=== PATIENT | female | born 1940 | race Caucasian/White ===

== ENCOUNTER → 2023-05-05 10:38 | Outpatient (REF) | payer MEDICARE, OTHER, SELFPAY ==
[2023-05-05 15:30] LABS: % Basophils 1.3 % (0-2); % Immature Granulocytes 0.3 % (0-0.5); % Lymphocytes 24.7 % (20.5-51.1); % Monocytes 12.4 % (1.7-9.3); % Neutrophils 56.3 % (42.2-75.2); Absolute Basophils 0.1 10^3/uL (0-0.2); Absolute Eosinophils 0.3 10^3/uL (0-0.7); Absolute Lymphocytes 1.7 10^3/uL (1.2-3.4); Absolute Monocytes 0.8 10^3/uL (0.1-0.6); Absolute Neutrophils 3.8 10^3/uL (1.4-6.5); Hematocrit 41.9 % (37.0-47.0); Hemoglobin 13.4 g/dL (12.0-16.0); Mean Corpuscular Volume 93.7 fL (81.0-99.0); Mean Platelet Volume 10.4 fL (7.4-10.4); Nucleated Red Blood Cells % 0 %; Platelet Count 335 10^3/uL (130-400); Red Blood Cell Count 4.47 10^6/uL (4.20-5.40); Red Cell Dist. Width 12.3 % (11.5-14.5); White Blood Cell Count 6.8 10^3/uL (4.8-10.8)
[2023-05-05 15:46] LABS: Erythrocyte Sed Rate 19 mm/hour (0-20)
[2023-05-05 15:47] LABS: ALT (SGPT) 14 U/L (0-35); AST (SGOT) 21 U/L (14-36); Alkaline Phosphatase 44 U/L (38-126); Blood Urea Nitrogen 25 mg/dl (7-17); Calcium 9.8 mg/dl (8.4-10.2); Carbon Dioxide 29 mmol/L (22-30); Chloride 100 mmol/L (98-107); Glucose 95 mg/dl (70-99); Potassium 4.3 mmol/L (3.5-5.1); Sodium 138 mmol/L (135-145); Total Bilirubin 0.8 mg/dl (0.2-1.3); Total Protein 6.6 g/dl (6.3-8.2); eGFR 55.55
[2023-05-05 16:08] LABS: Vitamin D, 25-OH*** 43.9 ng/mL (30-80)
[2023-05-08 10:40] LABS: Intact PTH 41.3 pg/ml (13.6-85.8)
== END ==
LOC: HWLAB 10:38
PROVIDERS: ATTENDING PHYSICIAN Internal Medicine; FAMILY PHYSICIAN Internal Medicine
DX: E21.5 Disorder of parathyroid gland, unspecified (principal); E55.9 Vitamin D deficiency, unspecified; G89.29 Other chronic pain; M25.511 Pain in right shoulder; M25.512 Pain in left shoulder; M35.3 Polymyalgia rheumatica; M81.0 Age-related osteoporosis without current pathological fracture; Z51.81 Encounter for therapeutic drug level monitoring
CPT/HCPCS: 36415; 80053; 82306; 83970; 85025; 85652; 86140

== ENCOUNTER → 2023-07-14 12:19 | Outpatient (REF) | payer MEDICARE, OTHER, SELFPAY ==
[2023-07-14 16:24] LABS: % Basophils 0.9 % (0-2); % Immature Granulocytes 0.6 % (0-0.5); % Lymphocytes 12.3 % (20.5-51.1); % Monocytes 15.6 % (1.7-9.3); % Neutrophils 68.6 % (42.2-75.2); Absolute Basophils 0.1 10^3/uL (0-0.2); Absolute Eosinophils 0.2 10^3/uL (0-0.7); Absolute Immature Granulocytes 0.1 10^3/uL (0-0.05); Absolute Lymphocytes 1.1 10^3/uL (1.2-3.4); Absolute Monocytes 1.4 10^3/uL (0.1-0.6); Absolute Neutrophils 6.1 10^3/uL (1.4-6.5); Hematocrit 39.8 % (37.0-47.0); Hemoglobin 12.9 g/dL (12.0-16.0); Mean Corp Hgb Conc. 32.4 g/dL (33.0-37.0); Mean Corpuscular Volume 92.6 fL (81.0-99.0); Mean Platelet Volume 10.2 fL (7.4-10.4); Nucleated Red Blood Cells % 0 %; Platelet Count 513 10^3/uL (130-400); Red Cell Dist. Width 12.8 % (11.5-14.5); White Blood Cell Count 8.8 10^3/uL (4.8-10.8)
[2023-07-14 16:47] LABS: ALT (SGPT) 18 U/L (0-35); AST (SGOT) 23 U/L (14-36); Albumin 4.2 g/dl (3.5-5.0); Alkaline Phosphatase 53 U/L (38-126); Blood Urea Nitrogen 20 mg/dl (7-17); Calcium 9.9 mg/dl (8.4-10.2); Carbon Dioxide 28 mmol/L (22-30); Chloride 97 mmol/L (98-107); Glucose 96 mg/dl (70-99); Potassium 4.5 mmol/L (3.5-5.1); Sodium 135 mmol/L (135-145); Total Bilirubin 0.5 mg/dl (0.2-1.3); Total Protein 7.4 g/dl (6.3-8.2); eGFR > 60.00
== END ==
LOC: HWLAB 12:19
PROVIDERS: ATTENDING PHYSICIAN Internal Medicine
DX: R53.83 Other fatigue (principal); R06.02 Shortness of breath
CPT/HCPCS: 36415; 71046; 80053; 85025

== ENCOUNTER 2023-08-04 13:09 | Inpatient (IN) | payer MEDICARE, OTHER, SELFPAY ==
[2023-08-04] VITALS (9 sets, daily range): BP systolic 94–149; BP diastolic 51–93; BMI 19.0; BMI 18.3
[2023-08-04 10:49] LABS: % Basophils 0.8 % (0-2); % Eosinophils 2.7 % (0-6); % Immature Granulocytes 0.5 % (0-0.5); % Lymphocytes 8.9 % (20.5-51.1); % Monocytes 14.6 % (1.7-9.3); % Neutrophils 72.5 % (42.2-75.2); Absolute Basophils 0.1 10^3/uL (0-0.2); Absolute Eosinophils 0.2 10^3/uL (0-0.7); Absolute Lymphocytes 0.7 10^3/uL (1.2-3.4); Absolute Monocytes 1.1 10^3/uL (0.1-0.6); Absolute Neutrophils 5.6 10^3/uL (1.4-6.5); Hematocrit 38.9 % (37.0-47.0); Mean Corp Hgb Conc. 33.4 g/dL (33.0-37.0); Mean Corpuscular Hgb 30.1 pg (27.0-31.0); Mean Platelet Volume 9.5 fL (7.4-10.4); Nucleated Red Blood Cells % 0 %; Platelet Count 257 10^3/uL (130-400); Red Blood Cell Count 4.32 10^6/uL (4.20-5.40); Red Cell Dist. Width 12.8 % (11.5-14.5); White Blood Cell Count 7.7 10^3/uL (4.8-10.8)
--- NOTE | 2023-08-04 11:08 | ED.GENMED ---
History of Present Illness
General
Chief Complaint: Breathing Problem
Source: patient and family
Exam Limitations: none
Time Seen by Provider: 08/04/23 10:16
Travel History
Have you had any contact with someone who has COVID-19?: No
Do you have any symptoms of coronavirus? Fever > 100 degrees, chills, cough, shortness of breath, sore throat, loss of taste or smell, muscle aches, or headache?: No
History of Present Illness
History of Present Illness:
82-year-old female sent by her primary physician for further evaluation and possible admission. Presents with increased shortness of breath. This been going on for weeks. Patient is on a chronic inhaler. Was on a course of steroids about 3 weeks
ago. Had some improvement at that time. No infectious symptoms no cough. No fever. No chest pain. Increased symptoms with exertion. Was hypoxic in the patient's primary care office.
Past History
Past History
ED Past Medical History: COPD
ED Past Surgical History: Gynecological
Review of Systems
Review of Systems
All Other Systems: Not applicable
Constitutional: Denies fever
Cardiac: Reports no symptoms
ABD/GI: Reports no symptoms
Phy Exam
Physical Exam
Physical Exam:
GENERAL: Alert and oriented in no apparent distress
EYE: Orbits normal.
NECK: Supple
ENT: Pharynx without erythema
CARDIAC: Regular rate and rhythm without any obvious murmurs.
LUNGS: Very minimal pursed lip type breathing. No red distress. Room air pulse ox 95%. Decreased breath sounds diffusely with some dry crackles anteriorly and posterior bases. No wheezing or rhonchi
ABDOMEN: Soft, without focal tenderness or distention
NEUROLOGICAL: Alert and oriented , grossly non-focal
SKIN: Warm and dry, no rash or lesion, no discoloration, skin intact.
MUSCULOSKELETAL: No edema,no deformity.Good color
PSYCH: Normal and appropriate interaction.
Scores
Heart Failure Risk
Heart Failure Risk Score: Not Applicable
Course
Orders/Labs/Results
Orders:
Orders
08/04/23 10:15
Electrocardiogram (*1) Urgent
Reason for Study: Shortness of Breath
EKG- Treatment ONCE
08/04/23 10:37
Complete Blood Count/With Diff Urgent
Comprehensive Metabolic Panel Urgent
08/04/23 10:52
IV Insert/Care/Rem.- Treatment PRN
Dexamethasone Sod Phosphate [Decadron] 8 mg IV NOW STA
Ipratropium/Albuterol Sulfate [Duoneb] 3 ml INH R NOW STA
08/04/23 10:53
Electrocardiogram (*1) Stat
Reason for Study: Other
Other Reason for Exam: pneumonia
EKG- Treatment ONCE
CR Chest - 2 Views Urgent
Comment:
Reason For Exam: sob
08/04/23 11:07
D-Dimer Urgent
08/04/23 12:41
Ipratropium/Albuterol Sulfate [Duoneb] 3 ml INH R NOW ONE
Abnormal Lab Results
08/04/23 08/04/23
10:37 11:07
Absolute Lymphs (auto) 0.7 L 10^3/uL
(1.2-3.4)
Absolute Monos (auto) 1.1 H 10^3/uL
(0.1-0.6)
Lymphocytes % 8.9 L %
(20.5-51.1)
Monocytes % 14.6 H %
(1.7-9.3)
D-Dimer 0.78 H ug/mlFEU
(0.00-0.50)
Glucose 101 H mg/dl
(70-99)
08/04/23 10:37
08/04/23 10:37
Vital Signs
Initial and Last Documented VS:
Initial Vital Signs
Temp Pulse Resp BP Pulse Ox
97.8 F 95 16 148/74 97
08/04/23 10:06 08/04/23 10:06 08/04/23 10:06 08/04/23 10:06 08/04/23 10:06
Last Documented Vital Signs
Temp Pulse Resp BP Pulse Ox
97.8 F 100 25 149/91 97
08/04/23 10:06 08/04/23 10:30 08/04/23 10:30 08/04/23 10:25 08/04/23 10:22
MDM/Problems Addressed
Differential Diagnosis Includes:
Likely COPD exacerbation however no precipitating event. Evaluation for pulmonary emboli pneumonia CHF. However likely a COPD exacerbation.
*Radiology
Radiology exam reviewed: preliminary read by ED provider (COPD) and radiology read reviewed (COPD)
*Pulse Oximetry
Patient hypoxic: no
*EKG
Interpreted by ED Provider?: Yes
Interpretation: abnormal
Comparison EKG: no comparison EKG present
Heart Rate: 86
Rhythm: sinus and PAC's
[place]: normal axis
Interval: normal interval
QRS Pattern: normal QRS
Ischemia: no ischemia
*Marine Steam [employer]itter Interpretation
Rate: normal
Interpretation: normal
Heart Rate: 84
Rhythm: sinus
*Critical Care Note
Total Time (30-74mins, 75-104mins- exclusive of procedures): Not Applicable
Update Note
Update Note:
Patient's D-dimer age-adjusted normal with a low clinical suspicion. Patient not hypoxic at rest although minimal pursed lip breathing. However with ambulation patient became very hypoxic. Warrants inpatient management
ED Attending Note
-
Portions of this chart may have been created with voice recognition software.� Occasional wrong word or��sound alike� substitutions may have occurred due to the inherent limitations of voice recognition software.
Discharge Plan
Departure
Patient Disposition: Admit
Date of Disposition: 08/04/23
Time of Disposition: 12:42
Presentation/result/management discussed w/ accepting MD/DO: Hospitalist
Discharge Problem:
COPD exacerbation, Severe hypoxia with exertion
Referrals:
Werner Mena DO [Family Provider] -
Interventions
Interventions:
*Risk Screen - Suicide Last Done: 08/04/23 10:21
*General Assessment Last Done: 08/04/23 10:21
*Neglect/Abuse Screening Last Done: 08/04/23 10:21
ED- Fall Risk Assessment Last Done: 08/04/23 10:22
*ED COVID-19 Vaccine History Last Done: 08/04/23 10:07
ED- Cardiac Assessment Last Done: 08/04/23 10:22
ED- Pulmonary Assessment Last Done: 08/04/23 10:22
Discharge Date and Time
Print Language: MONGOLIAN
[2023-08-04 11:15] LABS: ALT (SGPT) 16 U/L (0-35); AST (SGOT) 22 U/L (14-36); Albumin 3.9 g/dl (3.5-5.0); Alkaline Phosphatase 52 U/L (38-126); Blood Urea Nitrogen 16 mg/dl (7-17); Calcium 9.4 mg/dl (8.4-10.2); Carbon Dioxide 29 mmol/L (22-30); Chloride 101 mmol/L (98-107); Estimated Creatinine Clearance 44 ml/min; Glucose 101 mg/dl (70-99); Potassium 3.8 mmol/L (3.5-5.1); Sodium 136 mmol/L (135-145); Total Bilirubin 0.7 mg/dl (0.2-1.3); Total Protein 6.8 g/dl (6.3-8.2); eGFR > 60.00
[2023-08-04] MEDS: DECADRON 8 MG IV (11:23)
[2023-08-04] MEDS: DUONEB 3 ML INH ×4 (11:26→20:25)
[2023-08-04 12:09] LABS: D-Dimer 0.78 ug/mlFEU (0.00-0.50)
--- NOTE | 2023-08-04 12:52 | HPS.HSE ---
Family Physician
-
Family Physician: Werner Mena
Chief Complaint
-
Shortness of breath for 1 week duration
History of Present Illness
82 years old female came in from home. Patient went to see her primary care doctor today. She reported shortness of breath mostly exertional. No cough or fever. She was noted to have hypoxia in the patient's primary care office. Her primary
doctor recommended evaluation in the emergency room. In the ER, she was noted to have shortness of breath. She was given intravenous steroid and breathing treatment. Her oxygen was 90% on room air while in bed. Patient denied chest pain. No
leukocytosis. She had a course of steroid about 3 weeks ago. She reported compliance to her inhalation therapy. She is not on oxygen at home
Medical History
Past Medical History
Past Medical History: Reports COPD and Hypercholesterolemia
Past Surgical History: Reports Other (No recent major surgery)
Social History
Tobacco: Former Smoker
Alcohol: Occasional
Drug: None
Personal:
Living: Alone
Employment: Retired
Family History
Family History: Not pertinent
Allergies / Home Medications
Allergies reflects when Allergies were last updated in [facility].
Home Medications with original date entered in [facility]
Allergy/Medication List:
Allergies
Allergy/AdvReac Type Severity Reaction Status Date / Time
No Known Allergies Allergy Unverified 08/04/23 10:07
Home Medications
albuterol sulfate 90 mcg/actuation breath activated powder inhaler (ProAir RespiClick) 2 inh inhalation Q6H PRN shortness of breath 08/04/23
budesonide 160 mcg-glycopyr 9 mcg-formot 4.8 mcg/actuation HFA inhaler (Breztri Aerosphere) 2 inh inhalation BID Lung/Breathing Issues 08/04/23
calcium carbonate 500 mg PO DAILY 08/04/23
cholecalciferol (vitamin D3) 25 mcg (1,000 unit) capsule (Vitamin D3) 25 mcg PO DAILY@1200 08/04/23
Review of Systems
-
History Source: Patient
A 12 point ROS was completed and negative except as noted: Yes
Constitutional: Denies Fever or Chills
EENT: Denies Sore Throat
Respiratory: Reports Trouble Breathing; Denies Cough
Cardiac: Denies Chest Pain
Abdomen/GI: Denies Abdominal Pain or Nausea
: Denies Dysuria
Musculoskeletal: Denies Joint Pain
Skin: Denies Rash
Neurological: Denies Headache
Endocrine: Denies Temp Intolerance
Hematologic/Lymphatic: Denies Bruising
Psych: Denies Panic Disorder
Physical Exam
Vital Signs
Vital Signs
Temp Pulse Resp BP Pulse Ox
97.8 F 100 25 149/91 97
08/04/23 10:06 08/04/23 10:30 08/04/23 10:30 08/04/23 10:25 08/04/23 10:22
Physical Exam
General: Appears in Distress (She seems to be in mild shortness of breath while talking)
HEENT: Moist mucous membranes and Atraumatic
Respiratory: Wheezes and Decreased Breath Sounds
Cardiac: S1/S2, Regular Rhythm and Tachycardia
GI: Soft, Non Tender and Non Distended
Rectal: No Maroon Stools
Genito-urinary: No costovertebral tender
Musculoskeletal: No Cyanosis and No Edema
Skin: Warm; No Jaundice
Neuro: AO x 3 and Nonfocal/grossly intact; No Slurred Speech, Facial Droop or Tremors
Psych: Calm and Intact Judgment/Insight
Laboratory Results
-
08/04/23 10:37
08/04/23 10:37
Laboratory Results
Total Bilirubin 0.7 mg/dl (0.2-1.3) 08/04/23 10:37
AST 22 U/L (14-36) 08/04/23 10:37
ALT 16 U/L (0-35) 08/04/23 10:37
Alkaline Phosphatase 52 U/L (38-126) 08/04/23 10:37
Impression/Plan
-
82 years old female who presented with exertional shortness of breath
#/Acute COPD exacerbation
Acute hypoxic respiratory insufficiency with oxygen saturation 90% on rest with noticeable mild respiratory distress and using accessory muscle
Admit the patient to the hospital she is having respiratory distress, mostly exertional over the last
Several days. History of use of steroid at home
Chest radiography showed Some bibasilar scarring
Start the patient on IV steroid
Start the patient on nebulizer treatment
No evidence of acute infection with absence of leukocytosis, fever, productive cough
Eventual home O2 evaluate
Mucolytic therapy
Primary alum plant operator Dr. Ballesteros
Appreciate pulmonary input
# History of hyperlipidemia. No changes intended
# Sinus tachycardia. Expected with respiratory distress. Monitor for now. Patient denies chest pain.
# DVT prophylaxis
Total time spent to see the patient, examine the patient, review data and lab results, discuss treatment plan with patient, nursing staff, Pulmonary doctor, ER doctor around 75 minutes
--- NOTE | 2023-08-04 15:53 | PTCARENOTE ---
Received patient from ER awake and alert. No c/o pain or discomfort. Oriented to room , able to make her needs known. O2 maintained at 3 LPM via nasal cannula. Call thompson in reach, Son- in - law visiting at present.
--- NOTE | 2023-08-04 15:56 | CM ---
Patient seen bedside with son in law Shah.
Admitted with hypoxia
IA completed.
Patient lives alone in a 2 story home with 2 steps to enter.
Independent without assistive devices prior to admission.
Patient does have a WC and RW in the home, was her husbands.
Patient drives.
Patient was not on oxygen in the past.
Patient has not had VN or been to skilled rehab in the past.
PCP: Dr Mena
Pharmacy: [facility]
Plan:home with possible needs.
--- NOTE | 2023-08-04 17:03 | CON.PUL ---
Consultation
Consultation Request
Date/Time Consultation Requested: 08/03
Date/Time Consultation Performed: 08/03
Reason for Consultation: COPD exacerbation
Medical History
-
History of Present Illness:
History obtained from the patient, reviewing outpatient and inpatient records, obtaining history from daughter. Patient with history of COPD with asthma overlap, isolated gas exchange defect, smoking history in the past but has been on Breztri as
outpatient for the past year. Symptoms seem to date back to June when she had upper respiratory infection. She required 12 days of steroids by her primary in July with improvement about upon coming off steroids, increased shortness of breath,
chest congestion, cough started about 10 days ago. She was supposed to see Sobeida but unable to. She saw her primary today and was sent to [facility] for further management. Upon arrival, patient was afebrile, pulse 95, breathing at 16,
blood pressure 148/74, 97%. Patient had poor air movement during exam. Patient was admitted for hypoxia and COPD exacerbation. We are asked to help from pulmonary standpoint. Daughter was present to corroborate
.
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 History of tonsillectomy, D&C in the past
Past Medical History
Past Medical History: None (See above)
Past Surgical History: None (See above)
Social History
Tobacco: Former Smoker ([id number], quit 2011. )
Alcohol: None
Drug: None
Personal: Single
Living: Alone
Employment: Retired
Family History
Family History: Other (Both mother and father . Mother from a brain bleed at age 79. 6 siblings, 4 children. Family history for lung disease negative)
Allergies / Home Medications
Allergies
Allergy/AdvReac Type Severity Reaction Status Date / Time
No Known Allergies Allergy Unverified 08/04/23 10:07
Home Medications
�Medication �Instructions �Recorded �Confirmed �Last Taken �Type
albuterol sulfate 90 mcg/actuation 2 inh inhalation Q6H PRN shortness 08/04/23 08/04/23 1 Week Ago History
breath activated powder inhaler of breath ~07/28/23
(ProAir RespiClick)
budesonide 160 mcg-glycopyr 9 2 inh inhalation BID 08/04/23 08/04/23 08/04/23 History
mcg-formot 4.8 mcg/actuation HFA Lung/Breathing Issues
inhaler ([employer]ztri Escapiophere)
calcium carbonate 500 mg PO DAILY 08/04/23 08/04/23 08/03/23 History
cholecalciferol (vitamin D3) 25 25 mcg PO DAILY@1200 08/04/23 08/04/23 08/03/23 History
mcg (1,000 unit) capsule (Vitamin
D3)
Review of Systems
-
All other systems: Negative unless noted
Vitals / Labs / Diagnostic Testing
Vital Signs
Temp Pulse Resp BP Pulse Ox
97.7 F 100 16 122/67 98
08/04/23 14:44 08/04/23 16:19 08/04/23 16:19 08/04/23 14:44 08/04/23 16:19
Lab Data
08/04/23 10:37
08/04/23 10:37
Diagnostic Testing:
Physical Exam
-
HEENT: Normocephalic, Anicteric and Other (Cachectic)
Cardiovascular: S1/S2, Regular Rhythm, Murmur (2/6 systolic murmur right sternal border), Peripheral Edema (n) and Calf Tenderness (n)
Respiratory: Wheeze (Extremely poor air movement, mild wheeze), Rales (n), Rhonchi (n), Accessory Resp Muscle Use (Mild with conversation) and Other (Decreased breath sounds)
GI: Soft, Non Distended and Non Tender
Neurology: Awake, Alert and No Motor Deficits
Skin: Other (Mild pallor, no clubbing or cyanosis)
General: Comfortable (Sitting at edge of bed)
Assessment
-
82-year-old female with history of COPD/asthma overlap, baseline FEV1 60% but has been as low as 25% in the past, distant tobacco history, presents with on and off symptoms since June following upper respiratory infection. She was treated with
12-day course of steroid by her primary in July with good response. She is now admitted for COPD exacerbation 08/04/2023
Acute COPD exacerbation
Possible asthma overlap
Poor air movement on exam
Acute respiratory insufficiency, hypoxic
88% on room air
Recent upper respiratory infection June 2023
Conditions present prior to admission
Severe obstructive lung disease, FEV1 ranges between 25 and 60%
No evidence of hyperinflation, DLCO severely decreased at 20%
Polymyalgia rheumatica
History of skin cancer, squamous cell
[id number] history of smoking quit 2011
Pulmonary cachexia
Plan/recommendations
At this time, patient appears to be comfortable but there is mild use of accessory muscles with simple conversation
Extremely poor air movement on exam
Chest x-ray with flattened diaphragm, cannot rule out bibasilar process
Reviewed outpatient records, severe obstruction with severe gas exchange defect noted
Patient has never required oxygen therapy with a walk test
Moving forward
Continue with dexamethasone
Patient will require bjlftz-thr-dwwvo DuoNebs 4 times a day and as needed
GERD prophylaxis
DVT prophylaxis, remains on subcutaneous heparin
Mild bibasilar infiltrate noted, cannot rule out interstitial process but for now we will follow clinically
Hold off on antibiotics
Symptoms seem to wax and wane since June after upper respiratory infection
EKG without acute findings
Patient also with likely evidence of pulmonary cachexia
May benefit from formal pulmonary rehabilitation, muscle strengthening, and nutritional evaluation
Reviewed above at length with patient and daughter at bedside
All questions answered
[2023-08-04] MEDS: MUCINEX 600 MG PO (21:26)
[2023-08-04] MEDS: DECADRON 4 MG IV (21:27)
[2023-08-05] MEDS: DUONEB 3 ML INH ×4 (07:18→20:05)
[2023-08-05 07:30] VITALS: BP 119/67; BP 92/67; PULSE 108; PULSE 80
[2023-08-05] MEDS: DECADRON 4 MG IV ×2 (09:04→21:08)
[2023-08-05] MEDS: MUCINEX 600 MG PO ×2 (09:04→21:08)
[2023-08-05] MEDS: PROTONIX 40 MG PO (09:04)
--- NOTE | 2023-08-05 09:26 | W.PN.PUL3 ---
Today's Communication / Plan
-
Transition to oral prednisone 08/05, slow taper
Continue neb therapy [id number]
Remains on GERD therapy
Ambulate, PT/OT
Assessment
-
82-year-old female with history of COPD/asthma overlap, baseline FEV1 60% but has been as low as 25% in the past, distant tobacco history, presents with on and off symptoms since June following upper respiratory infection. She was treated with
12-day course of steroid by her primary in July with good response. She is now admitted for COPD exacerbation 08/04/2023
Acute COPD exacerbation
Possible asthma overlap
Poor air movement on exam
Acute respiratory insufficiency, hypoxic
88% on room air
Recent upper respiratory infection June 2023
Conditions present prior to admission
Severe obstructive lung disease, FEV1 ranges between 25 and 60%
No evidence of hyperinflation, DLCO severely decreased at 20%
Polymyalgia rheumatica
History of skin cancer, squamous cell
[id number] history of smoking quit 2011
Pulmonary cachexia
Plan/recommendations
At this time, patient appears to be comfortable, less use of accessory muscles with conversation this morning
Extremely poor air movement on exam, slightly improved
Chest x-ray with flattened diaphragm, cannot rule out bibasilar process
Reviewed outpatient records, severe obstruction with severe gas exchange defect noted
Patient has never required oxygen therapy with a walk test
Moving forward
Continue with dexamethasone, will plan to change to oral prednisone in a.m.
Would pursue slow taper given recurrent need for steroids, last treated for 12 days per primary middle of July
Patient will require jqkrsv-vrh-pewua DuoNebs 4 times a day and as needed
GERD prophylaxis
DVT prophylaxis, remains on subcutaneous heparin
Mild bibasilar infiltrate noted, cannot rule out interstitial process but for now we will follow clinically
Hold off on antibiotics
Symptoms seem to wax and wane since June after upper respiratory infection
EKG without acute findings
Patient also with likely evidence of pulmonary cachexia
May benefit from formal pulmonary rehabilitation, muscle strengthening, and nutritional evaluation
Reviewed above at length with patient
Will require short-term follow-up in the office
Subjective Data
-
Date of Service:
Date of Service: August 05, 2023
Subjective:
Patient feels breathing has improved. She is presently on room air, examined earlier this morning. Denies chest pain, cough, hemoptysis, abdominal pain, nausea
Objective Data
Data Reviewed
Vital Signs / I&O / Oxygen:
Vital Signs
Temp Pulse Resp BP Pulse Ox
97.7 F 72 16 94/51 99
08/04/23 23:38 08/05/23 07:21 08/05/23 07:21 08/04/23 23:38 08/05/23 07:21
Intake and Output
08/04/23 08/05/23 08/06/23
06:59 06:59 06:59
Intake Total 120 / 120
Balance 120 / 120
SaO2 99
Nasal Cannula flow liters per 2
minute
Physical Exam
General: Comfortable and Other ( cachectic)
HEENT: Normocephalic and Anicteric
Cardiovascular: S1-S2, Regular Rhythm, Murmur (n) and Rub (n)
Respiratory: Wheeze (n), Crackles (n), Rhonchi (n), Non-Labored Respirations, Stridor (n) and Other (Decreased breath sounds, poor air movement)
GI: Soft, Non Distended and Non Tender
Neurology: Awake, Alert and No Motor Deficits
Skin: Cyanosis (n), Jaundice (n) and Rash (n)
Labs/Micro/Reports
Lab Data
08/04/23 10:37
08/04/23 10:37
--- NOTE | 2023-08-05 10:40 | W.PN.HOSP.TC ---
Today's Communication/Plan
-
.
Assessment / Plan
Assessment / Plan
Physical Exam
General: Appears in Distress (She seems to be in mild shortness of breath while talking)
HEENT: Moist mucous membranes and Atraumatic
Respiratory: less Wheezes and more breath Sounds
Cardiac: S1/S2, Regular Rhythm and Tachycardia
GI: Soft, Non Tender and Non Distended
Rectal: No Maroon Stools
Genito-urinary: No costovertebral tender
Musculoskeletal: No Cyanosis and No Edema
Skin: Warm; No Jaundice
Neuro: AO x 3 and Nonfocal/grossly intact; No Slurred Speech, Facial Droop or Tremors
Psych: Calm and Intact Judgment/Insight
82 years old female who presented with exertional shortness of breath
#/Acute COPD exacerbation
Acute hypoxic respiratory insufficiency with oxygen saturation 90% on rest with noticeable mild respiratory distress and using accessory muscle
she is feeling better today, no cough
Chest radiography showed Some bibasilar scarring
c/w IV steroid, plan to switch to taper oral prednisone.
c/w on nebulizer treatment
No evidence of acute infection with absence of leukocytosis, fever, productive cough
Eventual home O2 evaluate
Mucolytic therapy
Primary mechanic senior Dr. Ballesteros
Appreciate pulmonary input
# hypotension
asymptomatic
Monitor for now
# History of hyperlipidemia. No changes intended
# Sinus tachycardia. resolved.
# DVT prophylaxis
Total time spent to see the patient, examine the patient, review data and lab results, discuss treatment plan with patient, nursing staff around 55 minutes
Anticipated Discharge: Within 24 hours
Subjective/Interval History
-
Date of Service: August 05, 2023
No chest pain
No sob
No fevers
She did not sleep well because of roommate's condition.
Objective Data
-
Vital Signs:
Vital Signs
Temp Pulse Resp BP Pulse Ox
97.4 F 80 22 92/67 91
08/05/23 07:30 08/05/23 07:30 08/05/23 07:30 08/05/23 07:30 08/05/23 08:45
I&O
08/04/23 08/05/23 08/06/23
06:59 06:59 06:59
Intake Total 120 / 120
Balance 120 / 120
--- NOTE | 2023-08-05 14:54 | PN.CDI ---
CDI
- -
CDI:
Physician Documentation Request
Admit Date: 08/04/23 13:09
Dear Doctor Krish,
Patient admitted for acute exacerbation of COPD.
Height: 5' 3'
Weight:103 lbs
BMI:18.3
If possible, please provide an associated diagnosis related to the abnormal BMI, such as:
Underweight
Cachectic
BMI is not significant
Other
BMI < or = to 19
Underweight
Weight Loss
Cachectic
Anorexia
Use of terms such as suspected, likely, concern for, or probable (associated with a specific diagnosis that is being evaluated, monitored, or treated as if it exists) are acceptable and can be coded in the inpatient setting, when documented at the
time of discharge.
Thank you,
Teri Lindsay RN, BSN
CDI Specialist
Available via [facility] text
Please use your independent medical judgment in providing your response.
--- NOTE | 2023-08-05 14:57 | CM ---
Patient seen bedside.
Per patient possible d/c tomorrow.
Currently on room air.
Patient does not have a nebulizer at home.
Plan: home no needs anticipated. If patient needs nebulizer treatments at home, will need a script.
[2023-08-05 15:00] VITALS: BP 130/62
[2023-08-05 16:45] VITALS: BP 136/75; PULSE 104; O2SAT 94
[2023-08-05 23:50] VITALS: BP 97/56
[2023-08-06] MEDS: DUONEB 3 ML INH ×2 (07:25→11:17)
[2023-08-06 07:30] VITALS: BP 152/77
[2023-08-06] MEDS: MUCINEX 600 MG PO (08:06)
[2023-08-06] MEDS: PROTONIX 40 MG PO (08:06)
[2023-08-06] MEDS: DELTASONE 40 MG PO (08:06)
[2023-08-06 09:35] VITALS: BP 123/71; PULSE 81; O2SAT 96
--- NOTE | 2023-08-06 10:21 | W.PN.HOSP.TC ---
Today's Communication/Plan
-
dc
Assessment / Plan
Assessment / Plan
Physical Exam
General: Appears in Distress (She seems to be in mild shortness of breath while talking)
HEENT: Moist mucous membranes and Atraumatic
Respiratory: No Wheezes and more breath Sounds
Cardiac: S1/S2, Regular Rhythm and Tachycardia
GI: Soft, Non Tender and Non Distended
Rectal: No Maroon Stools
Genito-urinary: No costovertebral tender
Musculoskeletal: No Cyanosis and No Edema
Skin: Warm; No Jaundice
Neuro: AO x 3 and Nonfocal/grossly intact; No Slurred Speech, Facial Droop or Tremors
Psych: Calm and Intact Judgment/Insight
82 years old female who presented with exertional shortness of breath
#/Acute COPD exacerbation
Acute hypoxic respiratory insufficiency with oxygen saturation 90% on rest with noticeable mild respiratory distress and using accessory muscle
she is feeling better today, no cough
Chest radiography showed Some bibasilar scarring
S/P IV steroid, Switched to taper oral prednisone.
On nebulizer treatment
No evidence of acute infection with absence of leukocytosis, fever, productive cough
Eventual home O2 evaluate
Mucolytic therapy
Primary bariatric physician Dr. Ballesteros
Appreciate pulmonary input
# hypotension
asymptomatic
Monitor for now
# History of hyperlipidemia. No changes intended
# Sinus tachycardia. resolved.
# DVT prophylaxis
Total discharge time spent to see the patient, examine the patient, review data and lab results, discuss discharge plan with patient, daughter, pulmonary doctor, nursing staff around 65 minutes
Anticipated Discharge: Today
Subjective/Interval History
-
Date of Service: August 06, 2023
Doing well
No cough or sob
Anxious to go home
Objective Data
-
Vital Signs:
Vital Signs
Temp Pulse Resp BP Pulse Ox
97.7 F 73 16 152/77 96
08/06/23 07:30 08/06/23 07:34 08/06/23 07:34 08/06/23 07:30 08/06/23 07:34
I&O
08/05/23 08/06/23 08/07/23
06:59 06:59 06:59
Intake Total 120 / 120 420 / 420
Balance 120 / 120 420 / 420
--- NOTE | 2023-08-06 10:58 | W.PN.PUL3 ---
Today's Communication / Plan
-
Prednisone taper as below, 10 mg every 5 days until off
Discharged on 40 mg
GERD therapy
DuoNebs 4 times daily. Home nebulizer to be set up
Patient refusing oxygen. Will reassess as outpatient
Hold Breztr until seen in office
Appointment made 08/[address] Ballesteros
Dispo efforts
Assessment
-
82-year-old female with history of COPD/asthma overlap, baseline FEV1 60% but has been as low as 25% in the past, distant tobacco history, presents with on and off symptoms since June following upper respiratory infection. She was treated with
12-day course of steroid by her primary in July with good response. She is now admitted for COPD exacerbation 08/04/2023
Acute COPD exacerbation
Possible asthma overlap
Poor air movement on exam
Acute respiratory insufficiency, hypoxic
88% on room air
Recent upper respiratory infection June 2023
Conditions present prior to admission
Severe obstructive lung disease, FEV1 ranges between 25 and 60%
No evidence of hyperinflation, DLCO severely decreased at 20%
Polymyalgia rheumatica
History of skin cancer, squamous cell
[id number] history of smoking quit 2011
Pulmonary cachexia
Plan/recommendations
At this time, patient appears to be comfortable, improved overall
Although breath sounds are decreased, improved since admission
Chest x-ray with flattened diaphragm, cannot rule out bibasilar process
Reviewed outpatient records, severe obstruction with severe gas exchange defect noted
Patient has never required oxygen therapy with a walk test
Physical therapy records noted. Per daughter, towards the end of her walk, briefly went down to 85%
Patient refusing option of home oxygen
Moving forward
Continue with prednisone, transition to oral steroids today
Would pursue slow taper given recurrent need for steroids, last treated for 12 days per primary middle of July
Decrease by 10 mg every 5 days until off
Patient will require [id number] DuoNebs 4 times a day and as needed
Home nebulizer to be set up
GERD prophylaxis will continue while on steroids
Lets hold Breztri until seen in the office
DVT prophylaxis, remains on subcutaneous heparin
Mild bibasilar infiltrate noted, cannot rule out interstitial process but for now we will follow clinically
Hold off on antibiotics
Symptoms seem to wax and wane since June after upper respiratory infection
EKG without acute findings
Patient also with likely evidence of pulmonary cachexia
May benefit from formal pulmonary rehabilitation, muscle strengthening, and nutritional evaluation
Reviewed above at length with patient
Will require short-term follow-up in the office, appointment already made 08/18
Reviewed with daughter and patient at length
Reviewed with primary service
Disposition efforts
Subjective Data
-
Date of Service:
Date of Service: August 06, 2023
Subjective:
Patient feels improved. She is ambulating in the room with less issues. Has mild dry cough but otherwise denies chest pain, nausea, abdominal pain. She is off oxygen. With physical therapy she went down to 85% briefly at the end. Daughter at
bedside.
Objective Data
Data Reviewed
Vital Signs / I&O / Oxygen:
Vital Signs
Temp Pulse Resp BP Pulse Ox
97.7 F 73 16 152/77 96
08/06/23 07:30 08/06/23 07:34 08/06/23 07:34 08/06/23 07:30 08/06/23 07:34
Intake and Output
08/05/23 08/06/23 08/07/23
06:59 06:59 06:59
Intake Total 120 / 120 420 / 420
Balance 120 / 120 420 / 420
SaO2 96
Nasal Cannula flow liters per 2
minute
Physical Exam
General: Comfortable and Other ( cachectic)
HEENT: Normocephalic and Anicteric
Cardiovascular: S1-S2, Regular Rhythm, Murmur (n) and Rub (n)
Respiratory: Wheeze (n), Crackles (n), Rhonchi (n), Non-Labored Respirations, Stridor (n) and Other (Decreased breath sounds)
GI: Soft, Non Distended and Non Tender
Neurology: Awake, Alert and No Motor Deficits
Skin: Cyanosis (n), Jaundice (n) and Rash (n)
Labs/Micro/Reports
Lab Data
08/04/23 10:37
08/04/23 10:37
--- NOTE | 2023-08-06 12:14 | CM ---
Patient for d/c home today.
Home oxygen assessment completed, does not require home oxygen.
Nebulizer ordered and script given to daughter.
Patient agreeable to RN for respiratory assessments.
Referral to [facility] via [facility]/accepted.
IMM completed.
Plan: home with [facility]
--- NOTE | 2023-08-06 12:34 | W.DCSUMMARY ---
Discharge Summary
Discharge Data
Date of Admission: 08/04/23
Date of Discharge: 08/06/23
-
Pending Results: No
Hospital Course
82 years old female admitted with shortness of breath. Patient was found to have exertional hypoxia. Patient had history of chronic obstructive pulmonary disease. Patient did not have fever or leukocytosis. Chest radiography did not show
infiltrate. Patient was diagnosed with acute exacerbation of chronic obstructive pulmonary disease. Patient was evaluated by pulmonary doctor. She was started on nebulizer treatment and intravenous steroid treatment. Her condition improved. She
did not need oxygen, even on exertion. She was maintained on nebulizer treatment. Patient was counseled to monitor her oxygen level at home. Patient remained hemodynamically stable. Discharge directions were discussed with the patient and her
daughter. Patient was discharged with home health services in a stable condition.
Discharge Plan
-
Patient Disposition: Home with Home Care
Discharge Diagnosis/Procedures: Acute exacerbation of chronic obstructive pulmonary disease
Diet: As tolerated
Referrals:
Christopher Ballesteros MD [Active] -
(RADIO TELEVISION TECHNICAL DIRECTOR in 2-3 weeks
Lesli in 3 mo)
Werner Mena DO [Family Provider] - in one to two weeks
Prescriptions:
New
guaifenesin 600 mg Tablet Extended Release 12hr
600 mg PO Q12 Qty: 20 0RF
ipratropium-albuterol 0.5 mg-3 mg(2.5 mg base)/3 mL solution for nebulization
3 ml inhalation QID Qty: 180 0RF
prednisone 10 mg tablet
40 mg PO DAILY Qty: 26 0RF
Rx Instructions:
40 mg X2 days, 30 mg X3 days, 20 mg X3 days then 10 mg X3 days
Continued
calcium carbonate 500 mg calcium (1,250 mg) Tablet
500 mg PO DAILY
cholecalciferol (vitamin D3) [Vitamin D3] 25 mcg (1,000 unit) Capsule
25 mcg PO DAILY@1200
ProAir RespiClick 90 mcg/actuation Aerosol Powdr Breath Activated
2 inh INHALATION Q6H PRN (Reason: shortness of breath)
Held
BreVirtusizephere 160-9-4.8 mcg/actuation HFA aerosol inhaler
2 inh INHALATION BID
Hold Instructions: Resume on 09/02/23.
Discharge Orders:
Discharge Patient (As Directed); Ordered 08/06/23
Ordered By: Mina Rutherford
Discharge Date and Time
Print Language: MALTESE
[2023-08-06 14:40] VITALS: BP 119/73
== END 2023-08-06 15:14 | disposition home health service (06) | DRG 191 ==
LOC: 4 WEST ACU 13:09
PROVIDERS: ADMITTING PHYSICIAN Internal Medicine; CONSULT PHYSICIAN Internal Medicine Critical Care Medicine; EMERGENCY PHYSICIAN Emergency Medicine; FAMILY PHYSICIAN Internal Medicine
DX: J44.1 Chronic obstructive pulmonary disease with (acute) exacerbation (principal); R64 Cachexia; Z68.1 Body mass index [BMI] 19.9 or less, adult; R09.02 Hypoxemia; E78.00 Pure hypercholesterolemia, unspecified; M35.3 Polymyalgia rheumatica; Z87.891 Personal history of nicotine dependence
CPT/HCPCS: 71046; 80053; 85025; 85379; 93005; 94640; 96374; 97162; 97165; 97535; 99285

== ENCOUNTER 2023-08-19 11:22 | Emergency (ER) | payer MEDICARE, OTHER, SELFPAY ==
[2023-08-19 11:30] VITALS: BP 107/49
[2023-08-19 12:00] VITALS: BP 111/68
[2023-08-19 12:05] VITALS: BMI 18.2
[2023-08-19 12:21] LABS: % Basophils 0.8 % (0-2); % Eosinophils 0.5 % (0-6); % Immature Granulocytes 1.6 % (0-0.5); % Lymphocytes 5.2 % (20.5-51.1); % Neutrophils 77.9 % (42.2-75.2); Absolute Basophils 0.1 10^3/uL (0-0.2); Absolute Eosinophils 0.1 10^3/uL (0-0.7); Absolute Immature Granulocytes 0.2 10^3/uL (0-0.05); Absolute Lymphocytes 0.6 10^3/uL (1.2-3.4); Absolute Monocytes 1.6 10^3/uL (0.1-0.6); Absolute Neutrophils 8.8 10^3/uL (1.4-6.5); Hematocrit 42.4 % (37.0-47.0); Hemoglobin 14.3 g/dL (12.0-16.0); Mean Corp Hgb Conc. 33.7 g/dL (33.0-37.0); Mean Corpuscular Hgb 30.2 pg (27.0-31.0); Mean Corpuscular Volume 89.5 fL (81.0-99.0); Mean Platelet Volume 9.3 fL (7.4-10.4); Nucleated Red Blood Cells % 0 %; Platelet Count 345 10^3/uL (130-400); Red Blood Cell Count 4.74 10^6/uL (4.20-5.40); Red Cell Dist. Width 13.2 % (11.5-14.5); White Blood Cell Count 11.3 10^3/uL (4.8-10.8)
[2023-08-19 12:37] LABS: ALT (SGPT) 16 U/L (0-35); AST (SGOT) 19 U/L (14-36); Albumin 3.7 g/dl (3.5-5.0); Alkaline Phosphatase 46 U/L (38-126); Blood Urea Nitrogen 22 mg/dl (7-17); Calcium 9.3 mg/dl (8.4-10.2); Carbon Dioxide 27 mmol/L (22-30); Chloride 102 mmol/L (98-107); Estimated Creatinine Clearance 34 ml/min; Glucose 115 mg/dl (70-99); Potassium 4.9 mmol/L (3.5-5.1); Sodium 135 mmol/L (135-145); Total Bilirubin 0.7 mg/dl (0.2-1.3); Total Protein 6.4 g/dl (6.3-8.2); eGFR > 60.00
--- NOTE | 2023-08-19 12:47 | ED.GENMED ---
History of Present Illness
General
Chief Complaint: Heart Rate Problem
Time Seen by Provider: 08/19/23 11:40
Travel History
Have you had any contact with someone who has COVID-19?: No
Do you have any symptoms of coronavirus? Fever > 100 degrees, chills, cough, shortness of breath, sore throat, loss of taste or smell, muscle aches, or headache?: No
History of Present Illness
History of Present Illness:
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 Patient was noted to have heart rates in the 170s that was audibly irregular according to her inventory administrator. Her
symptoms are improving upon arrival. She denies any chest pain or shortness of breath and denies any palpitations during this event but does note that she was dizzy and fatigued. She was admitted to this hospital earlier this month due to COPD
exacerbation. Denies any leg swelling
Past History
Past History
ED Past Medical History: COPD
ED Past Surgical History: Gynecological
Review of Systems
Review of Systems
Allergies reviewed?: Yes
All Other Systems: ROS reviewed and negative except as documented in HPI and ROS
Phy Exam
Physical Exam
Physical Exam:
GEN: Well appearing, NAD, WDWN
HEENT: Oral mucosa moist, no scleral icterus
Cardiac: Irregular, controlled rate
Lung: No respiratory distress, no tachypnea
MSK: No gross deformity or injuries
Skin: Good color, no pallor or jaundice, no rashes
Neuro: AO x3, moves all extremities freely
Psych: Calm, cooperative
Course
Orders/Labs/Results
Orders:
Orders
08/19/23 11:33
Electrocardiogram (*1) Urgent
Reason for Study: Atrial Fibrillation
08/19/23 11:34
EKG- Treatment ONCE
08/19/23 12:15
CBC/With Diff [Complete Blood Count/With Diff] Urgent
CMP [Comprehensive Metabolic Panel] Urgent
08/19/23 13:39
Diltiazem Extended Release [Cardizem Cd] 120 mg PO NOW STA
Abnormal Lab Results
08/19/23
12:15
WBC 11.3 H 10^3/uL
(4.8-10.8)
Abs Immat Gran (auto) 0.2 H 10^3/uL
(0-0.05)
Absolute Neuts (auto) 8.8 H 10^3/uL
(1.4-6.5)
Absolute Lymphs (auto) 0.6 L 10^3/uL
(1.2-3.4)
Absolute Monos (auto) 1.6 H 10^3/uL
(0.1-0.6)
Immature Gran % 1.6 H %
(0-0.5)
Neutrophils % 77.9 H %
(42.2-75.2)
Lymphocytes % 5.2 L %
(20.5-51.1)
Monocytes % 14.0 H %
(1.7-9.3)
BUN 22 H mg/dl
(7-17)
Glucose 115 H mg/dl
(70-99)
08/19/23 12:15
08/19/23 12:15
Vital Signs
Initial and Last Documented VS:
Initial Vital Signs
Temp Pulse Resp BP Pulse Ox
97.8 F 106 18 107/49 96
08/19/23 11:30 08/19/23 11:30 08/19/23 11:30 08/19/23 11:30 08/19/23 11:30
Last Documented Vital Signs
Temp Pulse Resp BP Pulse Ox
97.8 F 82 15 109/72 96
08/19/23 11:30 08/19/23 13:50 08/19/23 13:45 08/19/23 13:50 08/19/23 13:45
MDM/Problems Addressed
MDM/Problems Addressed:
82-year-old female presents with acute new onset paroxysmal A-fib. She did convert spontaneously while in the emergency department. She was observed with no recurrence and did not require any IV rate control. Given that the patient has COPD will
avoid beta-dereck therapy for her, she will be started on diltiazem and Eliquis due to age/[id number] score of 2 and referred to cardiology for close outpatient follow-up
Comment
Comment:
Initial EKG independently interpreted by me shows a variable atrial flutter versus atrial fibrillation at a rapid rate
*Critical Care Note
Total Time (30-74mins, 75-104mins- exclusive of procedures): Not Applicable
ED Attending Note
-
Portions of this chart may have been created with voice recognition software.� Occasional wrong word or��sound alike� substitutions may have occurred due to the inherent limitations of voice recognition software.
Discharge Plan
Departure
Patient Disposition: Home (Routine Discharge)
Date of Disposition: 08/19/23
Time of Disposition: 13:34
Patient with high blood pressure during this ER visit?: No
Discharge Problem:
Paroxysmal atrial fibrillation
Instructions: Atrial Fibrillation (DC)
Prescriptions:
New
diltiazem HCl 120 mg capsule,extended release 24 hr
120 mg PO DAILY Qty: 30 0RF
Eliquis 5 mg tablet
5 mg PO BID Qty: 60 0RF
No Action
calcium carbonate 500 mg calcium (1,250 mg) Tablet
500 mg PO DAILY
cholecalciferol (vitamin D3) [Vitamin D3] 25 mcg (1,000 unit) Capsule
25 mcg PO DAILY@1300
Breztri Aerosphere 160-9-4.8 mcg/actuation Hfa Aerosol Inhaler
2 inh INHALATION R BID
ipratropium-albuterol 0.5 mg-3 mg(2.5 mg base)/3 mL solution for nebulization
3 ml inhalation R BIDPRN PRN (Reason: sob)
guaifenesin 600 mg tablet extended release 12hr
600 mg PO BID@0900,2100
Referrals:
Rashid Mckeon MD [Active] -
Werner Mena DO [Family Provider] -
Interventions
Interventions:
*Risk Screen - Suicide Last Done: 08/19/23 13:23
*General Assessment Last Done: 08/19/23 13:23
*Neglect/Abuse Screening Last Done: 08/19/23 13:23
ED- Fall Risk Assessment Last Done: 08/19/23 12:00
*Nursing Disposition Last Done: 08/19/23 13:55
ED- Cardiac Assessment Last Done: 08/19/23 12:00
ED- Pulmonary Assessment Last Done: 08/19/23 12:00
Discharge Date and Time
Discharge Date/Time: 08/19/23 13:55
Print Language: TAJIK
[2023-08-19 13:00] VITALS: BP 109/72
[2023-08-19] MEDS: CARDIZEM CD 120 MG PO (13:50)
== END 2023-08-19 13:55 | disposition home or self-care (01) ==
LOC: EMR 11:22
PROVIDERS: Physician Assistant; EMERGENCY PHYSICIAN Emergency Medicine; FAMILY PHYSICIAN Internal Medicine
DX: I48.0 Paroxysmal atrial fibrillation (principal); J44.9 Chronic obstructive pulmonary disease, unspecified
CPT/HCPCS: 99283; 80053; 85025; 93005

== ENCOUNTER 2023-08-23 21:51 | Inpatient (IN) | payer MEDICARE, OTHER, SELFPAY ==
[2023-08-23 16:15] VITALS: BP 136/69
[2023-08-23 16:48] LABS: % Basophils 0.6 % (0-2); % Eosinophils 1.5 % (0-6); % Immature Granulocytes 0.7 % (0-0.5); % Lymphocytes 9.3 % (20.5-51.1); % Monocytes 17.4 % (1.7-9.3); % Neutrophils 70.5 % (42.2-75.2); Absolute Basophils 0.1 10^3/uL (0-0.2); Absolute Eosinophils 0.1 10^3/uL (0-0.7); Absolute Immature Granulocytes 0.1 10^3/uL (0-0.05); Absolute Lymphocytes 0.8 10^3/uL (1.2-3.4); Absolute Monocytes 1.4 10^3/uL (0.1-0.6); Absolute Neutrophils 5.8 10^3/uL (1.4-6.5); Hematocrit 39.7 % (37.0-47.0); Hemoglobin 13.1 g/dL (12.0-16.0); Mean Corpuscular Volume 90.8 fL (81.0-99.0); Mean Platelet Volume 9.5 fL (7.4-10.4); Nucleated Red Blood Cells % 0 %; Platelet Count 285 10^3/uL (130-400); Red Blood Cell Count 4.37 10^6/uL (4.20-5.40); Red Cell Dist. Width 12.8 % (11.5-14.5); White Blood Cell Count 8.2 10^3/uL (4.8-10.8)
[2023-08-23 17:03] LABS: ALT (SGPT) 13 U/L (0-35); AST (SGOT) 20 U/L (14-36); Albumin 3.8 g/dl (3.5-5.0); Alkaline Phosphatase 46 U/L (38-126); Blood Urea Nitrogen 19 mg/dl (7-17); Calcium 9.9 mg/dl (8.4-10.2); Carbon Dioxide 24 mmol/L (22-30); Chloride 100 mmol/L (98-107); Glucose 96 mg/dl (70-99); Potassium 4.3 mmol/L (3.5-5.1); Sodium 135 mmol/L (135-145); Total Bilirubin 0.7 mg/dl (0.2-1.3); Total Protein 6.5 g/dl (6.3-8.2); eGFR > 60.00
[2023-08-23 17:14] LABS: Troponin I < 0.012 ng/ml
[2023-08-23 19:37] VITALS: BP 129/51
[2023-08-23 19:38] VITALS: BMI 18.7
[2023-08-23 20:00] VITALS: BP 134/60
[2023-08-23] MEDS: ELIQUIS 5 MG PO (20:04)
--- NOTE | 2023-08-23 20:51 | ED.GENMED ---
History of Present Illness
General
Chief Complaint: Heart Rate Problem
Source: patient
Exam Limitations: none
Time Seen by Provider: 08/23/23 19:35
Nursing documentation reviewed up to this point in time: agreed with
Travel History
Have you had any contact with someone who has COVID-19?: No
Do you have any symptoms of coronavirus? Fever > 100 degrees, chills, cough, shortness of breath, sore throat, loss of taste or smell, muscle aches, or headache?: No
History of Present Illness
History of Present Illness:
Patient diagnosed with new onset atrial fibrillation last week, started on Eliquis and Cardizem, presents to ED from barber or beauty shop manager office this afternoon, where she was found to be in rapid atrial fibrillation. Upon arrival to ED, patient noted to be
once again in normal sinus rhythm, without any symptoms. Patient denies dizziness or shortness of breath. Denies palpitations. Denies nausea or vomiting. Denies chest pain.
Past History
Past History
ED Past Medical History: COPD
ED Past Surgical History: Gynecological
Review of Systems
Review of Systems
Allergies reviewed?: Yes
All Other Systems: ROS reviewed and negative except as documented in HPI and ROS
Constitutional: Reports no symptoms
EENT: Reports no symptoms
Respiratory: Reports no symptoms
Cardiac: Reports no symptoms
ABD/GI: Reports no symptoms
Musculoskeletal: Reports no symptoms
Skin: Reports no symptoms
Neurological: Reports no symptoms
Phy Exam
Physical Exam
Physical Exam:
Physical Exam
General: no apparent distress, not acutely ill. afebrile
Head: nc/at. eomi
Neck: supple. no meningeal signs.
Heart: s1/s2 regular rate and rhythm, no murmur. equal radial pulses.
Lungs: no acute respiratory distress. clear bilaterally
Abdomen: normal bowel sounds. not tender.
Neuro: alert and oriented. no focal neurological deficits
Skin: no rash
Psychiatric: well kept. interactive and cooperative
Extremities: no edema. no calf tenderness.
Course
Orders/Labs/Results
Orders:
Orders
08/23/23 Breakfast
Cholesterol Lowering
At Your Request: Full Participation
Does patient need a safe tray?: No
Cholesterol Lowering: Sodium, 2 Gram
08/23/23 16:18
Electrocardiogram (*1) Routine
Reason for Study: Tachycardia
08/23/23 16:41
Complete Blood Count/With Diff Urgent
Comprehensive Metabolic Panel Urgent
Magnesium Urgent
Comment: ADD ON
Troponin I Urgent
08/23/23 19:57
Apixaban [Eliquis] 5 mg PO NOW STA
08/23/23 20:44
Add On- LAB Urgent
Tests Added?: magnesium
08/23/23 21:14
Admit/Transfer Patient As Directed
Co-Sign Provider:
Level of Care: Inpatient admission
Assign to:: IVU
Physician / Group: bárbara
Diagnosis: atrial fib
Reason for Hospitalization: atrial fib
Expected length of stay greater than two midnights?: Yes
ELOS- Estimated Length of Stay in days: 3
I certify the patient meets the requirements for IP care: Yes
Code Status As Directed
Resuscitation Status: Full Code
08/23/23 21:29
Dofetilide [Tikosyn] 500 mcg PO NOW STA
08/23/23 23:26
Acetaminophen [Tylenol] 650 mg PO Q4HPRN PRN
Bisacodyl [Dulcolax] 10 mg RECTAL [id number] PRN
Docusate W/Senna [Senokot-S] 1 tablet PO BIDPRN PRN
Polyethylene Glycol Powder [Miralax] 17 grams PO DAILYPRN PRN
08/23/23 23:26
CARDIOLOGY CONSULT Routine
Consulting Provider: Sha Dowd
Was physician already notified: Yes
Activity As Directed
Activity Level: As Tolerated
Vital Signs As Directed
Frequency: Per unit guidelines
08/24/23 06:00
Basic Metabolic Panel IN AM
Complete Blood Count/No Diff IN AM
Physical Therapy Consult [Pt Eval And Treat] IN AM
Activity Level: As Tolerated
08/24/23 08:00
Apixaban [Eliquis] 5 mg PO BID
Budesonide/Formoterol 160/4.5 [Symbicort 160/4.5 Mcg Inhaler] 2 puff INH R BID
08/25/23 06:00
Basic Metabolic Panel IN AM
Complete Blood Count/No Diff IN AM
08/26/23 06:00
Basic Metabolic Panel IN AM
Complete Blood Count/No Diff IN AM
08/26/23 11:00
DC Protocol for Telemetry ONCE
08/27/23 06:00
Basic Metabolic Panel IN AM
Complete Blood Count/No Diff IN AM
Abnormal Lab Results
08/23/23
16:41
Abs Immat Gran (auto) 0.1 H 10^3/uL
(0-0.05)
Absolute Lymphs (auto) 0.8 L 10^3/uL
(1.2-3.4)
Absolute Monos (auto) 1.4 H 10^3/uL
(0.1-0.6)
Immature Gran % 0.7 H %
(0-0.5)
Lymphocytes % 9.3 L %
(20.5-51.1)
Monocytes % 17.4 H %
(1.7-9.3)
BUN 19 H mg/dl
(7-17)
08/23/23 16:41
08/23/23 16:41
Vital Signs
Initial and Last Documented VS:
Initial Vital Signs
Temp Pulse Resp BP Pulse Ox
98.1 F 89 18 136/69 97
08/23/23 16:15 08/23/23 16:15 08/23/23 16:15 08/23/23 16:15 08/23/23 16:15
Last Documented Vital Signs
Temp Pulse Resp BP Pulse Ox
98.3 F 76 30 146/75 98
08/24/23 00:15 08/24/23 00:00 08/24/23 00:00 08/23/23 23:20 08/24/23 01:12
MDM/Problems Addressed
MDM/Problems Addressed:
History and exam concerning for patient going in and out of atrial fibrillation rhythm, although patient fortunately remains symptom-free.
Discussed with on-call barber or beauty shop manager, Dr. Dowd, who recommends patient to be admitted to the hospitalist service and start Tikosyn treatment.
*Critical Care Note
Total Time (30-74mins, 75-104mins- exclusive of procedures): Not Applicable
ED Attending Note
-
Portions of this chart may have been created with voice recognition software.� Occasional wrong word or��sound alike� substitutions may have occurred due to the inherent limitations of voice recognition software.
Discharge Plan
Departure
Patient Disposition: Admit
Date of Disposition: 08/23/23
Time of Disposition: 20:57
Admit to: Telemetry
Presentation/result/management discussed w/ accepting MD/DO: Hospitalist
Discharge Problem:
Atrial fibrillation
Interventions
Interventions:
*Risk Screen - Suicide Last Done: 08/23/23 16:15
*General Assessment Last Done: 08/23/23 16:15
*Neglect/Abuse Screening Last Done: 08/23/23 16:15
ED- Fall Risk Assessment Last Done: 08/23/23 19:38
*ED COVID-19 Vaccine History Last Done: 08/23/23 16:15
*Nursing Disposition Last Done: 08/23/23 23:25
ED- Cardiac Assessment Last Done: 08/23/23 19:38
ED- Pulmonary Assessment Last Done: 08/23/23 19:38
Discharge Date and Time
Discharge Date/Time: 08/23/23 23:25
--- NOTE | 2023-08-23 20:55 | HPS.HSE ---
Family Physician
-
Family Physician: Werner Mena
Chief Complaint
-
elevated heart rate
History of Present Illness
82 year old with PMH for COPD presented to us with atrial fib with RVR. last , patient was with pulmonology office and was noted to have tachycardia. patient was sent in to ER and she was noted in atrial fib with RVR. patient was prescribed
Cardizem and eliquis and was sent home. today she had follow up visit with window machine operator and she was in atrial fib with RVR. HR was in 130s to 140s. patient denied any palpitation, chest pain. patient has chronic sob. denied ORR, dizzy or syncopal
episode. denied fever, chills, runny nose, congestion. denied abdominal pain,n,v,d. denied dysuria or hematuria.
patient was noted in NSR with HR controlled on arrival. patient was ordered Tikosyn and eliquis in ER. admitting for further management.
Medical History
Past Medical History
Past Medical History: Reports Other
Additional Past Medical History:
COPD
PMR
squamous cell carcinoma
Past Surgical History: Reports Other
Additional Past Surgical History:
tonsillectomy
Social History
Tobacco: Former Smoker
Alcohol: Daily (1 beer nightly)
Drug: None
Personal: Single
Living: Alone
Family History
Family History: Not pertinent
Allergies / Home Medications
Allergies reflects when Allergies were last updated in [facility].
Home Medications with original date entered in [facility]
Allergy/Medication List:
Allergies
Allergy/AdvReac Type Severity Reaction Status Date / Time
aspirin Allergy Unknown Verified 08/23/23 16:15
Penicillins Allergy Rash Verified 08/23/23 16:15
Sulfa (Sulfonamide Allergy Unknown Verified 08/23/23 16:15
Antibiotics)
Home Medications
calcium carbonate 500 mg PO DAILY Supplement 08/04/23
cholecalciferol (vitamin D3) 25 mcg (1,000 unit) capsule (Vitamin D3) 25 mcg PO DAILY@1300 Supplement 08/04/23
apixaban 5 mg tablet (Eliquis) 5 mg PO BID #60 tabs 08/19/23
budesonide 160 mcg-glycopyr 9 mcg-formot 4.8 mcg/actuation HFA inhaler (Kno) 2 inh inhalation R BID 08/19/23
diltiazem HCl 120 mg capsule,24 hr,extended release 120 mg PO DAILY #30 caps 08/19/23
Review of Systems
-
Constitutional: Reports No Symptoms
EENT: Reports No Symptoms
Respiratory: Reports Trouble Breathing
Cardiac: Reports No Symptoms
Abdomen/GI: Reports No Symptoms
: Reports No Symptoms
Musculoskeletal: Reports No Symptoms
Skin: Reports No Symptoms
Neurological: Reports No Symptoms
Endocrine: Reports No Symptoms
Hematologic/Lymphatic: Reports No Symptoms
Psych: Reports No Symptoms
Physical Exam
Vital Signs
Vital Signs
Temp Pulse Resp BP Pulse Ox
98.1 F 75 24 134/60 95
08/23/23 16:15 08/23/23 20:15 08/23/23 20:15 08/23/23 20:00 08/23/23 20:15
Physical Exam
General: Well Developed, Well Nourished and No Apparent Distress
HEENT: NormoCephalic, Moist mucous membranes and Atraumatic
Respiratory: Decreased Breath Sounds
Cardiac: S1/S2 and Regular Rhythm; No Murmur or Rub
GI: Soft, Non Tender, Non Distended and Normal Bowel Sounds; No Organomegaly
Rectal: Deferred by Provider
Musculoskeletal: No Clubbing, No Cyanosis and No Edema
Skin: No Rash
Neuro: AO x 3 and Nonfocal/grossly intact
Psych: Calm
Laboratory Results
-
08/23/23 16:41
08/23/23 16:41
Laboratory Results
Total Bilirubin 0.7 mg/dl (0.2-1.3) 08/23/23 16:41
AST 20 U/L (14-36) 08/23/23 16:41
ALT 13 U/L (0-35) 08/23/23 16:41
Alkaline Phosphatase 46 U/L (38-126) 08/23/23 16:41
Troponin I < 0.012 ng/ml 08/23/23 16:41
Data Reviewed
-
Lab Data: Labs Reviewed by me
Impression/Plan
-
#new onset atrial fib with RVR
-at present back to NSR
-Tikosyn 500mg bid
-Cardizem continued
-eliquis continued
-trop negative
-EKG NSR
-cardiology consulted
#sob/hxt of COPD
-not in acute exacerbation
-nebs from home continued
-albuterol prn for sob/wheezing
-obtain chest x ray
#DVT prophylaxis
-eliquis
#CODE status
-full code
[2023-08-23 21:24] LABS: Magnesium 1.9 mg/dl (1.6-2.3)
--- NOTE | 2023-08-23 22:05 | W.PN.UPDATE ---
Update Note
Progress Note Update
This is an addendum to the H&P written by JOCELYNE Lynch on 08/23/2023.
Patient seen and examined independently with CUSTODIAL OPERATIONS MANAGER. 82-year-old female past medical history of COPD sent in by cardiology for atrial fibrillation with RVR. She was noted to be tachycardic in the pulmonology office last week and was sent to the
emergency room and found to be in new onset atrial fibrillation with RVR. She was started on Cardizem and Eliquis and sent home. Today she was at her buckle frame shaper office and was in atrial fibrillation with RVR with heart rate in 130s.
Patient spontaneously converted to normal sinus rhythm on arrival. Currently asymptomatic apart from chronic shortness of breath secondary to COPD. EKG shows normal sinus rhythm.
On lung exam there are no crackles or wheezes although patient with pursed lip breathing. Check chest x-ray. Cardiology recommended starting Tikosyn.
--- NOTE | 2023-08-23 22:29 | PTCARENOTE ---
Initial dose of Tikosyn per protocol only to be given in higher level of care. Dr. Zarco notified. front tender and supervisor of communications notified about tele room assignment.
[2023-08-23 23:00] VITALS: BP 151/69
[2023-08-23 23:20] VITALS: BP 146/75
[2023-08-24] VITALS (11 sets, daily range): BP systolic 109–144; BP diastolic 48–60; PULSE 70; O2SAT 97; BMI 18.3
--- NOTE | 2023-08-24 00:18 | PTCARENOTE ---
pt received from ED into CVICU room 2260. pt A&Ox4. no c/o pain. SR on tele-monitor, HR 70s-80s. palpable peripheral pulses. no edema noted. POX 89% on RA. tachypneic. AGUAYO. pt placed on 1 L NC, POX 97%. expiratory wheezes on auscultation. abd s/n,
+BS. pt attempted to void on bed betancur. PIV intact. see worklist for complete nursing assessment, interventions, VS, and I&Os.
[2023-08-24 04:56] LABS: Hematocrit 35.4 % (37.0-47.0); Mean Corp Hgb Conc. 33.9 g/dL (33.0-37.0); Mean Corpuscular Volume 88.5 fL (81.0-99.0); Mean Platelet Volume 9.6 fL (7.4-10.4); Platelet Count 302 10^3/uL (130-400); White Blood Cell Count 6.1 10^3/uL (4.8-10.8)
[2023-08-24 04:57] LABS: Blood Urea Nitrogen 14 mg/dl (7-17); Carbon Dioxide 29 mmol/L (22-30); Chloride 102 mmol/L (98-107); Estimated Creatinine Clearance 51 ml/min; Glucose 92 mg/dl (70-99); Potassium 4.1 mmol/L (3.5-5.1); Sodium 136 mmol/L (135-145); eGFR > 60.00
--- NOTE | 2023-08-24 07:00 | PTCARENOTE ---
Bedside walking rounds report received. Patient seen on rounds resting in bed on 2l nasal canula: awake alert and oriented x 3. Hx of copd: dyspneic at rest with use of accessory muscles: 2 L nasal canula reduced to 1L nasal canula.
--- NOTE | 2023-08-24 07:00 | PTCARENOTE ---
Bedside walking rounds report received. Patient seen on rounds resting in bed. Dyspneic at rest and on exertion with use of accessory muscles. HX of copd so nasal canula oxygen decreased from 2l to 1l. Bursts of a fib with activity. Anxious. See
flowrecord for remaining assessments. Prolonged qt prior to initiation of Tikosyn: aware.
[2023-08-24] MEDS: ELIQUIS 5 MG PO (08:01)
[2023-08-24] MEDS: TIKOSYN 500 MCG PO (08:02)
[2023-08-24] MEDS: NON-FORMULARY ITEM 1 UNIT INH (08:20)
--- NOTE | 2023-08-24 08:26 | W.PN.CD ---
Addendum entered and electronically signed by Anthony Fairchild MD 08/24/23 12:08:
I saw and examined the patient.
The BENZENE WASHER's note was reviewed and I agree with the note.
Comment: Will watch tele and QTc on ekgs closely. Med doses decreased appropriately.
Original Note:
Today's Communication / Plan
-
First of dofetilide this morning, decrease dose due to renal function, follow QTc
Apixaban 2.5mg BID
Impression / Plan
-
THIS IS THE SUMMARY. PLEASE SEE SCANNED CONSULT.
BACKGROUND: 82F with paroxysmal atrial fibrillation, COPD, & ambulatory dysfunction who prestented to the office in atrial fibrillation with rapid ventricular response
Head Machine Feeder: Dr. Rodrigez
Paroxysmal atrial fibrillation
-She spontaneously converted to sinus rhythm in triage, rapid rates with ambulation
-Rate controlling agents were unable to be increased due to limitations of blood pressure
-The plan is to maintain sinus rhythm with the assistance of dofetilide
-Dofetilide loading per protocol, this requires intensive monitoring of QTc
-Oral anticoagulation: Apixaban 5 mg twice daily, appropriate dose is 2.5mg BID (age 82, weight < 60kg), this was started 4 days prior to arrival, denies abnormal bleeding
-[id number]: Score at least 3 (age 75 or more, female gender)
COPD
Former smoker, quit 2011, continued cessation recommended
Ambulatory dysfunction
SUBJECTIVE:
She denies chest pain and dizziness. Her shortness of breath feels 'the same'.
Physical Exam
Vital Signs/Labs
Vital Signs
Temp Pulse Resp BP Pulse Ox
97.9 F 86 18 144/57 98
08/24/23 08:12 08/24/23 08:12 08/24/23 08:12 08/24/23 08:12 08/24/23 08:12
08/23/23 08/24/23 08/25/23
06:59 06:59 06:59
Actual Weight 46 kg
08/24/23 04:11
08/24/23 04:11
Magnesium 1.9 mg/dl (1.6-2.3) 08/23/23 16:41
LAB Results
08/23/23
16:41
Troponin I < 0.012
Physical Exam
Constitutional: No acute distress and Comfortable
EENT: Anicteric and Moist mucous membranes
Cardiovascular: Rhythm & rate is regular and S1S2 is normal
Respiratory: Respiratory effort normal and Lungs clear to auscul.
GI: Soft, Distention absent, Flat and Non tender
Neuro/Psych: AO x 3
Other: Skin (warm and dry without edema)
Data Reviewed
-
Date of Service: August 24, 2023
--- NOTE | 2023-08-24 08:28 | W.PN.HOSP.TC ---
Today's Communication/Plan
-
Started on Tikosyn. Continue Eliquis. Cardiac monitoring
Assessment / Plan
Assessment / Plan
Physical exam:
General: Well Developed, Well Nourished and No Apparent Distress
HEENT: Normocephalic, Atraumatic and Moist Mucous Membranes
Respiratory: Clear to Auscultation; Negative Wheezes, Rales or Rhonchi
Cardiac: Regular Rhythm and S1/S2
GI: Soft, Nontender and Nondistended
Musculoskeletal: No Clubbing, No Cyanosis and No Edema
Neuro: Awake, Alert and Oriented
Psych: Calm
A/P:
#new onset atrial fib with RVR
-at present back to NSR
-Tikosyn 500mg bid. Needs to monitor QTc very closely while on this medication for cardiac toxicity.
-Cardizem continued
-eliquis continued
-trop negative
-EKG NSR
-cardiology consulted and input appreciated
-Cardiology verified not on calcium channel dereck now, ketoconazole, simvastatin, Bactrim, Megace, Compazine, HCTZ, trivicay, amiodarone, chronic class I or II antiarrhythmics.
-Discussed with daughter at bedside today
#sob/hxt of COPD
-not in acute exacerbation
-nebs from home continued
-albuterol prn for sob/wheezing
-obtain chest x ray and unremarkable for acute chest pathology, but basilar scaring and changes consistent with COPD
-Assess for home oxygen needs close to discharge
#DVT prophylaxis
-eliquis
#CODE status
-full code
Total time spent on today's encounter was 52 minutes which included time spent in counseling the patient/family regarding diagnosis and treatment plan as listed above, goals of care, and symptom management. Case was discussed with nursing staff,
specialists, and care coordinators/case management. All labs and imaging personally reviewed by me. Remainder the time spent in detailed review of previous records, lab data, imaging, and other medical provider documentation.
Anticipated Discharge: > 48 hours
Subjective/Interval History
-
Date of Service: August 24, 2023
Patient denies any chest pain or shortness of breath today but she does have some chronic dyspnea as baseline. She is not on supplemental oxygen.
Objective Data
-
Labs:
Laboratory Results
08/24/23
04:11
WBC 6.1
Hgb 12.0
Hct 35.4 L
Plt Count 302
Sodium 136
Potassium 4.1
Chloride 102
Carbon Dioxide 29
BUN 14
Creatinine 0.6
Glucose 92
Calcium 9.0
Vital Signs:
Vital Signs
Temp Pulse Resp BP Pulse Ox
97.9 F 81 16 144/57 98
08/24/23 08:12 08/24/23 08:25 08/24/23 08:25 08/24/23 08:12 08/24/23 08:25
I&O
08/23/23 08/24/23 08/25/23
06:59 06:59 06:59
Output Total 75 / 75
Balance -75 / -75
Review of Systems
-
All other systems: Reviewed and negative
--- NOTE | 2023-08-24 09:31 | W.CARD.TIKOS ---
Initiate Tikosyn
-
I verify that the patient has not taken any verapamil (Isoptin/Calan), ketoconazole (Nizoral), cimetidine (Tagamet), trimethoprim (Trimpex), trimethoprim/sulfamethoxazole (Bactrim), megesterol (Megace), prochlorperazine (Compazine),
hydrochlorothiazide (HCTZ), dolutegravir (Tivicay) or any Class I or Class III anti-arrhythmic within the last three days
AND
I verify that the patient has not taken amiodarone within the last THREE months, or that the patient's amiodarone plasma concentration is <0.3 mcg/mL.
Creatinine 0.6 mg/dL (0.6-1.0) 08/24/23 04:11
Estimated Creat Clear 51 ml/min 08/24/23 04:11
Baseline QTc (in msec): 420
QTc interval is greater than 440msec without conduction abnormality OR greater than 500msec with a conduction abnormality, but acceptable to proceed per Cardiology attending.
Ordering Physician: Sha Dowd
--- NOTE | 2023-08-24 09:43 | VNURNOTE ---
Patient is current with [facility] since 08/07 w/SN only, will monitor progress and plan at discharge.
--- NOTE | 2023-08-24 10:47 | CM ---
Pricing on Dofetilide through the patient[facility] is $50 for a 30 day supply. [facility] does have 250 mcq in stock.
--- NOTE | 2023-08-24 11:00 | PTCARENOTE ---
No acute changes. NSR with pac/prolonged QT/afibb with exertion. Cardiology and pharmacy updated: tikosyn dose reduced to 250mg bid and eliquis dose reduced to 2.5mg bid. No other acute changes.
--- NOTE | 2023-08-24 11:11 | CM ---
Chart reviewed. Patient is independent of ADLS, lives alone in a 2 STH, 2 ELIN, 0 DME. Patient is current with [facility]. Plan is for the patient to return home with [facility]. CM to follow
--- NOTE | 2023-08-24 16:00 | PTCARENOTE ---
No acute changes. Vitals stable. NSR with pac's and prolonged QT
[2023-08-24] MEDS: TOPROL XL 12.5 MG PO (17:06)
[2023-08-24] MEDS: TIKOSYN 250 MCG PO (19:38)
[2023-08-24] MEDS: ELIQUIS 2.5 MG PO (19:38)
--- NOTE | 2023-08-24 20:00 | PTCARENOTE ---
assumed care of pt from previous RN. pt A&Ox4, resting in chair at time of assessment. SR on tele-monitor, HR 70s-80s. POX 95% on 1 L NC. pt AGUAYO. abd s/n, +BS. voiding clear, yellow urine in toilet. PIV intact. plan of care discussed w/ pt, pt in
agreement. see worklist for complete nursing assessment, interventions, VS, and I&Os.
[2023-08-24] MEDS: NON-FORMULARY ITEM 2 UNIT INH (21:40)
[2023-08-25] VITALS (8 sets, daily range): BP systolic 105–154; BP diastolic 57–89; BMI 18.0
--- NOTE | 2023-08-25 00:15 | PTCARENOTE ---
assessment remains unchanged. SR on tele-monitor, HR 60s-70s. POX 96% on 1 L NC.
[2023-08-25 03:49] LABS: Hematocrit 34.5 % (37.0-47.0); Hemoglobin 11.6 g/dL (12.0-16.0); Mean Corp Hgb Conc. 33.6 g/dL (33.0-37.0); Mean Corpuscular Hgb 30.1 pg (27.0-31.0); Mean Corpuscular Volume 89.4 fL (81.0-99.0); Mean Platelet Volume 9.2 fL (7.4-10.4); Platelet Count 289 10^3/uL (130-400); Red Blood Cell Count 3.86 10^6/uL (4.20-5.40); Red Cell Dist. Width 12.8 % (11.5-14.5); White Blood Cell Count 6.1 10^3/uL (4.8-10.8)
[2023-08-25 04:24] LABS: Blood Urea Nitrogen 15 mg/dl (7-17); Carbon Dioxide 31 mmol/L (22-30); Chloride 102 mmol/L (98-107); Estimated Creatinine Clearance 43 ml/min; Glucose 96 mg/dl (70-99); Potassium 4.3 mmol/L (3.5-5.1); Sodium 137 mmol/L (135-145); eGFR > 60.00
[2023-08-25 04:52] LABS: TSH Reflex To Free T4 4.62 uIU/ml (0.47-4.68)
--- NOTE | 2023-08-25 08:00 | PTCARENOTE ---
Assumed care of patient from cleaner operator RN. AAO x 3 sitting up in bed. Denies complaint. No SOB at rest noted. SR with PAC's on monitor. RA 96% at rest. VSS. Plan for day discussed. Dose 3 of Tikosyn administered will obtain EKG 2 hours
post.
[2023-08-25] MEDS: NON-FORMULARY ITEM 1 UNIT INH ×2 (08:06→17:38)
[2023-08-25] MEDS: TIKOSYN 250 MCG PO ×2 (08:34→20:04)
[2023-08-25] MEDS: ELIQUIS 2.5 MG PO ×2 (08:34→20:04)
--- NOTE | 2023-08-25 08:59 | W.PN.HOSP.TC ---
Addendum entered and electronically signed by Xander Lazo MD 08/25/23 16:07:
Underweight.
Original Note:
Today's Communication/Plan
-
Continue Tikosyn. Continue beta-blockers. Anticoagulation. Continue cardiac monitoring.
Assessment / Plan
Assessment / Plan
Physical exam:
General: Well Developed, Well Nourished and No Apparent Distress
HEENT: Normocephalic, Atraumatic and Moist Mucous Membranes
Respiratory: Clear to Auscultation; Negative Wheezes, Rales or Rhonchi
Cardiac: Regular Rhythm and S1/S2
GI: Soft, Nontender and Nondistended
Musculoskeletal: No Clubbing, No Cyanosis and No Edema
Neuro: Awake, Alert and Oriented
Psych: Calm
A/P:
#new onset atrial fib with RVR
-at present back to NSR
-Tikosyn 250mg bid. Needs to monitor QTc very closely while on this medication for cardiac toxicity.
-eliquis continued, 2.5 mg bid
-trop negative
-EKG NSR
-cardiology consulted and input appreciated
-Cardiology verified not on calcium channel dereck, ketoconazole, simvastatin, Bactrim, Megace, Compazine, HCTZ, trivicay, amiodarone, or chronic class I or II antiarrhythmics.
-Started on metoprolol succinate 12.5 mg daily
-Discussed with daughter at bedside today
#sob/hxt of COPD
-not in acute exacerbation
-nebs from home continued
-albuterol prn for sob/wheezing
-obtain chest x ray and unremarkable for acute chest pathology, but basilar scaring and changes consistent with COPD
-Assess for home oxygen needs close to discharge
#DVT prophylaxis
-eliquis
#CODE status
-full code
Anticipated Discharge: Within 24 hours
Subjective/Interval History
-
Date of Service: August 25, 2023
Patient remains in normal sinus rhythm. No palpitations. On supplemental oxygen. No worsening shortness of breath or chest pain
Objective Data
-
Labs:
Laboratory Results
08/25/23
03:41
WBC 6.1
Hgb 11.6 L
Hct 34.5 L
Plt Count 289
Sodium 137
Potassium 4.3
Chloride 102
Carbon Dioxide 31 H
BUN 15
Creatinine 0.7
Glucose 96
Calcium 9.0
Vital Signs:
Vital Signs
Temp Pulse Resp BP Pulse Ox
98.0 F 79 18 122/69 98
08/25/23 08:00 08/25/23 08:30 08/25/23 08:13 08/25/23 07:38 08/25/23 08:13
I&O
08/24/23 08/25/23 08/26/23
06:59 06:59 06:59
Intake Total 750 / 750 360 / 360
Output Total 75 / 75
Balance -75 / -75 750 / 750 360 / 360
--- NOTE | 2023-08-25 10:10 | W.PN.CD ---
Today's Communication / Plan
-
continue Tikosyn loading
Impression / Plan
-
THIS IS THE SUMMARY. PLEASE SEE SCANNED CONSULT.
BACKGROUND: 82F with paroxysmal atrial fibrillation, COPD, & ambulatory dysfunction who prestented to the office in atrial fibrillation with rapid ventricular response
Toll Bridge Operator: Dr. Rodrigez
Paroxysmal atrial fibrillation
-She spontaneously converted to sinus rhythm in triage, rapid rates with ambulation
-Rate controlling agents were unable to be increased due to limitations of blood pressure, continue low dose of metoprolol given RVR still seen briefly
-The plan is to maintain sinus rhythm with the assistance of dofetilide
-Dofetilide loading per protocol, this requires intensive monitoring of QTc
-QTC is stable, continue loading
-Oral anticoagulation: Apixaban 5 mg twice daily, appropriate dose is 2.5mg BID (age 82, weight < 60kg), this was started 4 days prior to arrival, denies abnormal bleeding
-[id number]: Score at least 3 (age 75 or more, female gender)
COPD
Former smoker, quit 2011, continued cessation recommended
Ambulatory dysfunction
SUBJECTIVE:
She denies chest pain and dizziness.no new dyspnea
Physical Exam
Vital Signs/Labs
Vital Signs
Temp Pulse Resp BP Pulse Ox
98.0 F 79 18 122/69 96
08/25/23 08:00 08/25/23 08:30 08/25/23 08:13 08/25/23 07:38 08/25/23 08:46
08/24/23 08/25/23 08/26/23
06:59 06:59 06:59
Actual Weight 46 kg 45.3 kg
08/25/23 03:41
08/25/23 03:41
Magnesium 2.0 mg/dl (1.6-2.3) 08/25/23 03:41
LAB Results
08/23/23
16:41
Troponin I < 0.012
Physical Exam
Constitutional: No acute distress
Cardiovascular: Rhythm & rate is regular, Pedal edema is absent, JVD pressure is normal, Systolic murmur absent and Diastolic murmur absent
Respiratory: Respiratory effort normal, Lungs clear to auscul., Wheeze Absent and Crackles Absent
Neuro/Psych: AO x 3
Data Reviewed
-
Date of Service: August 25, 2023
EKG: Tracing Personally Visualized and interpreted (nsr with qtc of 458 m/s) and Other (tele no significant nsvt)
--- NOTE | 2023-08-25 11:27 | PN.CDI ---
CDI
- -
CDI:
Physician Documentation Request
Admit Date: 08/23/23 21:51
Dear Doctor Violet,
Please review the following and provide your response in the progress notes.
Clinical Indicators:
Height: 5 ft 2.5 in
Weight: 99 lbs 13.92 oz
BMI:18.0
Other Clinical Notes: Per Nutrition note has lost weight but not eating poorly
If possible, please provide an associated diagnosis related to the abnormal BMI, such as:
BMI < or = to 19
Underweight
Weight Loss
Cachectic
- Other
Use of terms such as suspected, likely, concern for, or probable (associated with a specific diagnosis that is being evaluated, monitored, or treated as if it exists) are acceptable and can be coded in the inpatient setting, when documented at the
time of discharge.
Thank you,
Anabell Iqbal RN
CDI Specialist
[place] [employer]
Please use your independent medical judgment in providing your response.
--- NOTE | 2023-08-25 12:52 | PTCARENOTE ---
Pt's daughter out at desk 'upset' that someone presumably the boat and plant utility supervisor told the patient she may have to stay for 6 total doses of tikosyn and it may interfere with her going to the shore. Importance of QTC monitoring reinforced. Dry Kiln Burner
notified.
--- NOTE | 2023-08-25 16:53 | PTCARENOTE ---
patient transferred from CVICU to [facility]. placed on monitor, NSR, VSS. patient remains AGUAYO, RA 95%. no change from previous assessment.
[2023-08-25] MEDS: TOPROL XL 12.5 MG PO (17:45)
--- NOTE | 2023-08-25 22:55 | PTCARENOTE ---
upon rounds pt and daughter were upset to find out that she was started on a beta dereck (toprol xl) on 08/23. This RN discussed the noted reason- but they were still unhappy. dgt states she spoke with the hospitalist about not using beta blockers
with her COPD. If possible tomorrow discuss with patient or call @ [facility] [phone] or Deborah @ [phone].
[2023-08-26 04:31] VITALS: BP 131/63
[2023-08-26 05:00] LABS: Hematocrit 36.9 % (37.0-47.0); Hemoglobin 12.1 g/dL (12.0-16.0); Mean Corp Hgb Conc. 32.8 g/dL (33.0-37.0); Mean Corpuscular Hgb 30.3 pg (27.0-31.0); Mean Corpuscular Volume 92.3 fL (81.0-99.0); Mean Platelet Volume 9.3 fL (7.4-10.4); Platelet Count 314 10^3/uL (130-400); Red Cell Dist. Width 12.7 % (11.5-14.5); White Blood Cell Count 5.8 10^3/uL (4.8-10.8)
[2023-08-26 05:25] LABS: Blood Urea Nitrogen 14 mg/dl (7-17); Calcium 9.1 mg/dl (8.4-10.2); Carbon Dioxide 32 mmol/L (22-30); Chloride 101 mmol/L (98-107); Estimated Creatinine Clearance 43 ml/min; Glucose 91 mg/dl (70-99); Potassium 4.5 mmol/L (3.5-5.1); Sodium 137 mmol/L (135-145); eGFR > 60.00
[2023-08-26 07:50] VITALS: BP 115/68
[2023-08-26 08:00] VITALS: BP 115/68
[2023-08-26] MEDS: TIKOSYN 250 MCG PO (08:00)
[2023-08-26] MEDS: ELIQUIS 2.5 MG PO (08:01)
[2023-08-26] MEDS: NON-FORMULARY ITEM 1 UNIT INH (08:10)
--- NOTE | 2023-08-26 08:10 | W.PN.CD ---
Today's Communication / Plan
-
- Discharge home today
Impression / Plan
-
THIS IS THE SUMMARY. PLEASE SEE SCANNED CONSULT.
BACKGROUND: 82F with paroxysmal atrial fibrillation, COPD, & ambulatory dysfunction who prestented to the office in atrial fibrillation with rapid ventricular response
Concaver: Dr. Rodrigez
Paroxysmal atrial fibrillation
-She spontaneously converted to sinus rhythm in triage, rapid rates with ambulation
-Rate controlling agents were unable to be increased due to limitations of blood pressure, continue low dose of metoprolol given RVR still seen briefly
-The plan is to maintain sinus rhythm with the assistance of dofetilide
-Dofetilide loading completed per protocol, this requires intensive monitoring of QTc on 250 mcg dose
-QTC is stable, stable for discharge
-Oral anticoagulation: Apixaban 5 mg twice daily, appropriate dose is 2.5mg BID (age 82, weight < 60kg), this was started 4 days prior to arrival, denies abnormal bleeding
-[id number]: Score at least 3 (age 75 or more, female gender)
COPD
Former smoker, quit 2011, continued cessation recommended
Ambulatory dysfunction
SUBJECTIVE:
She denies chest pain and dizziness.no new dyspnea
Physical Exam
Vital Signs/Labs
Vital Signs
Temp Pulse Resp BP Pulse Ox
99.3 F 70 20 147/73 93
08/26/23 07:48 08/25/23 22:07 08/26/23 07:48 08/25/23 22:07 08/26/23 07:48
08/25/23 08/26/23 08/27/23
06:59 06:59 06:59
Actual Weight 45.3 kg
08/26/23 04:38
08/26/23 04:38
Magnesium 2.0 mg/dl (1.6-2.3) 08/25/23 03:41
LAB Results
08/23/23
16:41
Troponin I < 0.012
Physical Exam
Constitutional: No acute distress and Comfortable
EENT: Anicteric and Moist mucous membranes
Cardiovascular: Rhythm & rate is regular, Pedal edema is absent, JVD pressure is normal and Systolic murmur present
Respiratory: Respiratory effort normal, Wheeze Absent and Crackles Absent
GI: Soft, Non tender and Normal bowel sounds
Neuro/Psych: Alert, Oriented, AO x 3 and Motor deficits absent
Data Reviewed
-
Date of Service: August 26, 2023
Medical Decision Making: Reviewed Test Results, Independent Historian Assessment, Test Interpretation and Review of Case with other Provider
EKG: Tracing Personally Visualized and interpreted
Echo: Report Reviewed by me
Labs: Labs Reviewed by me
Old Records: Reviewed
--- NOTE | 2023-08-26 09:02 | W.PN.HOSP.TC ---
Today's Communication/Plan
-
Continue current management. Discharge planning in progress today as long as cardiology clears her.
Assessment / Plan
Assessment / Plan
Physical exam:
General: Well Developed, Well Nourished and No Apparent Distress
HEENT: Normocephalic, Atraumatic and Moist Mucous Membranes
Respiratory: Clear to Auscultation; Negative Wheezes, Rales or Rhonchi
Cardiac: Regular Rhythm and S1/S2
GI: Soft, Nontender and Nondistended
Musculoskeletal: No Clubbing, No Cyanosis and No Edema
Neuro: Awake, Alert and Oriented
Psych: Calm
A/P:
#new onset atrial fib with RVR
-at present back to NSR
-Tikosyn 250mg bid. Needs to monitor QTc very closely while on this medication for cardiac toxicity.
-eliquis continued, 2.5 mg bid
-trop negative
-EKG NSR
-cardiology consulted and input appreciated
-Cardiology verified not on calcium channel dereck, ketoconazole, simvastatin, Bactrim, Megace, Compazine, HCTZ, trivicay, amiodarone, or chronic class I or II antiarrhythmics.
-Started on metoprolol succinate 12.5 mg daily
-Discussed with daughter at bedside today on 08/25
#sob/hxt of COPD
-not in acute exacerbation
-nebs from home continued
-albuterol prn for sob/wheezing
-obtain chest x ray and unremarkable for acute chest pathology, but basilar scaring and changes consistent with COPD
-Assess for home oxygen needs close to discharge
#DVT prophylaxis
-eliquis
#CODE status
-full code
Anticipated Discharge: Today
Subjective/Interval History
-
Date of Service: August 26, 2023
Patient denies any chest pain or shortness of breath. Remained in normal sinus rhythm
Objective Data
-
Labs:
Laboratory Results
08/26/23
04:38
WBC 5.8
Hgb 12.1
Hct 36.9 L
Plt Count 314
Sodium 137
Potassium 4.5
Chloride 101
Carbon Dioxide 32 H
BUN 14
Creatinine 0.7
Glucose 91
Calcium 9.1
Vital Signs:
Vital Signs
Temp Pulse Resp BP Pulse Ox
99.3 F 74 15 147/73 98
08/26/23 07:48 08/26/23 08:15 08/26/23 08:15 08/25/23 22:07 08/26/23 08:15
I&O
08/25/23 08/26/23 08/27/23
06:59 06:59 06:59
Intake Total 750 / 750 840 / 840
Balance 750 / 750 840 / 840
[2023-08-26 10:00] VITALS: BMI 17.9
--- NOTE | 2023-08-26 10:49 | CM ---
Addendum entered by Geneva Devries RN 08/27/23 10:15:
Correction. Patient will return home with [facility].
Original Note:
Chart reviewed. Patient is independent of ADLS, lives at home alone,, in 2 STH, 2 ELIN, 0 DME. I confirmed the patient's dofetilide 250 mcq is in stock at the [facility]'s [facility]. Plan is for the patient to return home with CT Transitional RN.
[2023-08-26 12:29] VITALS: BP 122/77
--- NOTE | 2023-08-26 13:18 | W.DCSUMMARY ---
Discharge Summary
Discharge Data
Date of Admission: 08/23/23
Date of Discharge: 08/26/23
-
Pending Results: No
Hospital Course
Patient 82 years old female with history of COPD, ambulatory dysfunction, presented to the hospital with atrial fibrillation with rapid ventricular response. Cardiology consulted. Patient initially started on antiarrhythmics with dofetilide.
Patient switched to normal sinus rhythm. Patient tolerated Tikosyn well overall. She was placed on a low-dose of beta-dereck that she also tolerated well. Her anticoagulation also was adjusted to her age and renal function. Strongly recommended
continue smoking cessation. We did a home oxygen need assessment upon discharge and she did well and she was 95% on room air and did not require any oxygen. Patient had an echocardiogram on 08/23 and normal biventricular size and systolic function
without regional wall motion abnormalities and no significant valvular disease. Her hemoglobin and electrolytes remained stable and upon discharge hemoglobin 12.1 and potassium 4.5, sodium 137 and creatinine 0.7. PT evaluated the patient and
recommended home health. manager call has arranged for home health care upon discharge. Cardiology cleared her for discharge today. Otherwise, patient is hemodynamically stable feeling symptomatically back to her baseline and eager to go home
today. Patient will be discharged in stable condition today.
Discharge duration: 35 minutes
Discharge Plan
-
Patient Disposition: Home (Routine Discharge)
Discharge Diagnosis/Procedures: Paroxysmal atrial fibrillation, new onset. Chronic obstructive pulmonary disease.
Diet: Low Cholesterol
Activity: As tolerated
Driving Restrictions: As prior to admission
Blood Work: Please PCP to order CBC, BMP within 1 week
Referrals:
[facility] [Outside]
Sha Dowd MD [Active] - in two to three weeks
Werner Mena DO [Family Provider] - in less than 1 week
Prescriptions:
New
Eliquis 2.5 mg Tablet
2.5 mg PO BID Qty: 60 0RF
dofetilide 250 mcg Capsule
250 mcg PO Q12H 30 Days Qty: 60 0RF
metoprolol succinate 25 mg Tablet Extended Release 24 Hr
12.5 mg PO QPM 30 Days Qty: 15 0RF
Continued
cholecalciferol (vitamin D3) [Vitamin D3] 25 mcg (1,000 unit) Capsule
25 mcg PO DAILY@1300
Breztri Aerosphere 160-9-4.8 mcg/actuation Hfa Aerosol Inhaler
2 inh INHALATION R BID
calcium carbonate [Calcium 600] 600 mg calcium (1,500 mg) Tablet
600 mg PO DAILY
Discontinued
Eliquis 5 mg tablet
5 mg PO BID Qty: 60 0RF
diltiazem HCl 120 mg capsule,extended release 24 hr
120 mg PO DAILY@1300
Discharge Orders:
Discharge Patient (As Directed); Ordered 08/26/23
Ordered By: Xander Lazo
Care Plan Goals
Care Plan Goals:
Problem: Readiness for enhanced knowledge related to diagnosis and treatment plan
Goal: Understand your diagnosis and treatment plan needs, including medications if applicable.
Instructions: Know your diagnosis, underlying causes and treatment plan options, including medications if applicable. Consult with your health care team to learn about your diagnosis and treatment plan, including medications if applicable.
Discharge Date and Time
Discharge Date/Time: 08/26/23 16:51
Print Language: [place]
[2023-08-26 14:46] VITALS: BP 129/68
[2023-08-26 15:04] VITALS: BP 129/68
--- NOTE | 2023-08-26 16:21 | PTCARENOTE ---
D/C instructions given to patient and daughter, both verbalizes understanding. INT D/C'd, telemetry D/C'd, personal belongings packed and sent home with patient. D/C to home via wc accompanied by staff.
== END 2023-08-26 16:51 | disposition home health service (06) | DRG 309 ==
LOC: IVU 21:51
PROVIDERS: Emergency Medicine; Registered Nurse; ADMITTING PHYSICIAN Hospitalist; ATTENDING PHYSICIAN Hospitalist; EMERGENCY PHYSICIAN Emergency Medicine; FAMILY PHYSICIAN Internal Medicine
DX: I48.0 Paroxysmal atrial fibrillation (principal); Z68.1 Body mass index [BMI] 19.9 or less, adult; J44.9 Chronic obstructive pulmonary disease, unspecified; M35.3 Polymyalgia rheumatica; R63.6 Underweight; Z79.01 Long term (current) use of anticoagulants; Z79.899 Other long term (current) drug therapy; Z87.891 Personal history of nicotine dependence
CPT/HCPCS: 71046; 80048; 80053; 83735; 84443; 84484; 85025; 85027; 93005; 93306; 94640; 97116; 97163; 99285

== ENCOUNTER → 2023-08-31 10:48 | Outpatient (REF) | payer MEDICARE, OTHER, SELFPAY ==
[2023-08-31 15:34] LABS: % Basophils 0.9 % (0-2); % Eosinophils 2.8 % (0-6); % Immature Granulocytes 0.7 % (0-0.5); % Lymphocytes 14.6 % (20.5-51.1); % Monocytes 11.8 % (1.7-9.3); % Neutrophils 69.2 % (42.2-75.2); Absolute Basophils 0.1 10^3/uL (0-0.2); Absolute Eosinophils 0.2 10^3/uL (0-0.7); Absolute Lymphocytes 0.8 10^3/uL (1.2-3.4); Absolute Monocytes 0.6 10^3/uL (0.1-0.6); Absolute Neutrophils 3.7 10^3/uL (1.4-6.5); Hematocrit 39.9 % (37.0-47.0); Hemoglobin 12.6 g/dL (12.0-16.0); Mean Corp Hgb Conc. 31.6 g/dL (33.0-37.0); Mean Corpuscular Hgb 29.6 pg (27.0-31.0); Mean Corpuscular Volume 93.7 fL (81.0-99.0); Mean Platelet Volume 9.8 fL (7.4-10.4); Nucleated Red Blood Cells % 0 %; Platelet Count 433 10^3/uL (130-400); Red Blood Cell Count 4.26 10^6/uL (4.20-5.40); Red Cell Dist. Width 12.8 % (11.5-14.5); White Blood Cell Count 5.4 10^3/uL (4.8-10.8)
[2023-08-31 15:40] LABS: ALT (SGPT) 14 U/L (0-35); AST (SGOT) 23 U/L (14-36); Albumin 3.8 g/dl (3.5-5.0); Alkaline Phosphatase 39 U/L (38-126); Blood Urea Nitrogen 19 mg/dl (7-17); Calcium 9.9 mg/dl (8.4-10.2); Carbon Dioxide 31 mmol/L (22-30); Chloride 100 mmol/L (98-107); Glucose 112 mg/dl (70-99); Potassium 4.6 mmol/L (3.5-5.1); Sodium 138 mmol/L (135-145); Total Bilirubin 0.5 mg/dl (0.2-1.3); Total Protein 6.7 g/dl (6.3-8.2); eGFR > 60.00
== END ==
LOC: HWLAB 10:48
PROVIDERS: ATTENDING PHYSICIAN Internal Medicine
DX: I48.0 Paroxysmal atrial fibrillation (principal); R53.83 Other fatigue; E78.2 Mixed hyperlipidemia
CPT/HCPCS: 36415; 80053; 85025

== ENCOUNTER 2024-03-15 19:56 | Inpatient (IN) | payer MEDICARE, OTHER, SELFPAY ==
[2024-03-15] VITALS (15 sets, daily range): BP systolic 82–209; BP diastolic 56–119; PULSE 2–89; BMI 18.0; BMI 19.3
[2024-03-15] MEDS: SOLU-MEDROL PF 125 MG IV (15:30)
[2024-03-15] MEDS: DUONEB 9 ML INH (15:30)
[2024-03-15 15:31] LABS: Venous Blood Gas B.E. 0.6 mmol/L (-4 to +4); Venous Blood Gas HCO3 29.6 mmol/L (22-27); Venous Blood Gas O2 Sat % 81.4 %; Venous Blood Gas pCO2 66 mmHg (35-48); Venous Blood Gas pH 7.26 (7.32-7.43); Venous Blood Gas pO2 47 mmHg (30-50)
--- NOTE | 2024-03-15 15:34 | ED.GENMED ---
History of Present Illness
General
Chief Complaint: Breathing Problem
Time Seen by Provider: 03/15/24 15:18
History of Present Illness
History of Present Illness:
83-year-old female with recent diagnosis of A-fib on Eliquis and Tikosyn and COPD presenting to the emergency department for difficulty breathing. Patient reports prior to arrival she was having a right sided back pain, called her daughter.
Daughter went to the house, put Bengay on her back. About an hour following, started to have difficulty breathing, increased work of breathing. Patient denies any recent cough or fever. Denies any injury to the back. Denies associated chest
pain. Denies abdominal pain or GI symptoms. Reports compliance with her medications. Denies any history of blood clot, recent surgery, recent travel. Denies any history of intubations. Denies additional acute medical complaints.
Past History
Past History
ED Past Medical History: COPD
ED Past Surgical History: Gynecological
Phy Exam
Physical Exam
Physical Exam:
General: Moderate respiratory distress
HEENT: protecting airway
Neck: appears supple
CV: Normal heart rate, regular rhythm, no evidence of cyanosis
Resp: Tachypneic with increased work of breathing, diminished air movement bilaterally
Abd: Soft and non-distended, no tenderness to palpation
Extremities: No deformities, no swelling
Neuro: alert, no focal neurologic deficit
: deferred
Rectal: deferred
Psych: Normal affect
Skin: Intact
Scores
Heart Failure Risk
Heart Failure Risk Score: Not Applicable
Course
Orders/Labs/Results
Orders:
Orders
03/15/24 15:17
Albuterol Sulfate [Ventolin Nebules] 7.5 mg .ROUTE .STK-MED ONE
Ipratropium/Albuterol Sulfate [Duoneb] 3 ml .ROUTE .STK-MED ONE
03/15/24 15:21
Ipratropium/Albuterol Sulfate [Duoneb] 9 ml INH R NOW ONE
Bipap [RESP] Urgent
Patient to use own unit?: No
Inspiratory Pressure (cm H2O): 12
Expiratory Pressure (cm H2O): 6
03/15/24 15:22
Electrocardiogram (*1) Stat
Reason for Study: Other
Other Reason for Exam: chest pain
EKG- Treatment ONCE
CR Chest Portable - 1 View Urgent
Comment:
Reason For Exam: SOB
Reason Study Needs to be Portable: Patient Unstable
03/15/24 15:23
MethylPREDNISolone PF [Solu-Medrol Pf] 125 mg IV NOW STA
03/15/24 15:25
Complete Blood Count/With Diff Urgent
Comprehensive Metabolic Panel Urgent
Venous Blood Gas Urgent
%Oxygen/Room Air: 30
03/15/24 15:33
NT-proBNP Urgent
PTT Urgent
Prothrombin Time Urgent
Troponin I Urgent
03/15/24 15:48
COVID-19 Antigen Urgent
Source: Nasal Swab
Influenza A+B Rapid Molecular Urgent
JOHN Source: Nasal Swab
Specimen Description:
03/15/24 16:15
Consult Interventional Radiology [IRAD CONSULT] Urgent
Consulting Provider: Thad Grace
Was physician already notified: Yes
Reason for Consult/Procedure: pneumothorax
Acknowledgement that appropriate orders are entered: Yes
03/15/24 18:14
Chest Tube As Directed
Location: right
To suction: Yes
Suction to __ centimeters of water: -20
May ambulate with suction off?: Yes
Comment: RECORD OUTPUT FROM CHEST TUBE EVERY SHIFT
03/15/24 19:39
Admit/Transfer Patient As Directed
Co-Sign Provider:
Level of Care: Inpatient admission
Assign to:: Telemetry
Physician / Group: Pa
Diagnosis: Pneumothorax
Reason for Telemetry: Arrhythmia
Date to Stop Telemetry: 03/18/24
Time to Stop Telemetry: 11:00
Reason for Hospitalization: chest tube
Expected length of stay greater than two midnights?: Yes
ELOS- Estimated Length of Stay in days: 3
I certify the patient meets the requirements for IP care: Yes
03/15/24 19:40
PRN Pain Medication Management As Directed
May give lesser potent ordered pain med per pt: Yes
preference::
Protocol:: Medication orders for pain may be administered in a
manner that supports deferring to patient preference
when the pt is:
- Requesting an ordered lesser potent pain medication.
Least to most potent pain medications are defined
as: acetaminophen < NSAID < tramadol < opioids
(morphine, oxycodone, hydromorphone).
- Requesting a lesser dose of the same medication IF
ORDERED.
- Requesting a less intrusive route of administration
if both routes are prescribed by the provider (PO <
IV).
03/15/24 19:41
Code Status As Directed
Resuscitation Status: Do not resuscitate
Reached after discussion with pt or family/Healthcare POA: Yes
03/15/24 19:42
DNR Bracelet Application ONCE
03/18/24 11:00
DC Protocol for Telemetry ONCE
Abnormal Lab Results
03/15/24
15:25
MCHC 32.9 L g/dL
(33.0-37.0)
Abs Immat Gran (auto) 0.1 H 10^3/uL
(0-0.05)
Absolute Monos (auto) 1.0 H 10^3/uL
(0.1-0.6)
Immature Gran % 0.7 H %
(0-0.5)
Monocytes % 9.6 H %
(1.7-9.3)
VBG pH 7.26 L
(7.32-7.43)
VBG pCO2 66 H mmHg
(35-48)
VBG HCO3 29.6 H mmol/L
(22-27)
BUN 24 H mg/dl
(7-17)
Glucose 140 H mg/dl
(70-99)
Albumin 5.1 H g/dl
(3.5-5.0)
03/15/24 15:25
03/15/24 15:25
Vital Signs
Initial and Last Documented VS:
Initial Vital Signs
Pulse Resp BP Pulse Ox
85 24 164/76 100
03/15/24 15:23 03/15/24 15:23 03/15/24 15:23 03/15/24 15:23
Last Documented Vital Signs
Temp Pulse Resp BP Pulse Ox
97.7 F 80 24 152/71 96
03/15/24 17:24 03/15/24 19:00 03/15/24 19:00 03/15/24 18:15 03/15/24 19:00
MDM/Problems Addressed
MDM/Problems Addressed:
83-year-old female with recent diagnosis of A-fib on Eliquis and COPD presenting to the emergency department for difficulty breathing. Vital signs on arrival significant for tachypnea and hypoxia.
On exam, patient in moderate respiratory distress, increased work of breathing, diminished air movement with ultimate concern for COPD exacerbation. Patient placed on supplemental oxygen, however saturations still in the low 90s to high 80s. For
this reason respiratory called for BiPAP. Will start patient on DuoNebs and steroids. Plan for chest x-ray imaging, viral panel, laboratory analysis. Will also send VBG and continue to closely monitor from respiratory standpoint.
16:00 -chest x-ray at bedside, shows a right-sided pneumothorax, spontaneous without tension physiology. Patient removed for the BiPAP, transition to nonrebreather with stable oxygenation. Discussed with IR, is available to place emergent chest
tube.
18:30 -patient returned from IR, status post chest tube. Work of breathing is much improved and patient is reporting symptom improvement. Plan for admission for continued respiratory monitoring and management of chest tube.
*Critical Care Note
Total Time (30-74mins, 75-104mins- exclusive of procedures): 46
comment:
The high probability of a clinically significant, sudden or life threatening deterioration of the respiratory system(s) required my full and direct attention, intervention and personal management. The aggregate critical care time was 46 minutes.
This time is in addition to time spent performing reported procedures but includes the following:
[x] Data Review and interpretation
[x] Patient assessment and monitoring of vital signs
[x] Documentation
[x] Medication orders and management
ED Attending Note
-
Portions of this chart may have been created with voice recognition software.� Occasional wrong word or��sound alike� substitutions may have occurred due to the inherent limitations of voice recognition software.
Discharge Plan
Departure
Patient Disposition: Admit
Date of Disposition: 03/15/24
Time of Disposition: 19:14
Presentation/result/management discussed w/ accepting MD/DO: Hospitalist
Patient with high blood pressure during this ER visit?: Yes
Condition: Good
Discharge Problem:
Spontaneous pneumothorax, Shortness of breath
Prescriptions:
No Action
cholecalciferol (vitamin D3) [Vitamin D3] 25 mcg (1,000 unit) Capsule
25 mcg PO NOON
Breztri Aerosphere 160-9-4.8 mcg/actuation Hfa Aerosol Inhaler
2 inh INHALATION R BID
calcium carbonate [Calcium 600] 600 mg calcium (1,500 mg) Tablet
600 mg PO DAILY
Eliquis 2.5 mg Tablet
2.5 mg PO BID Qty: 60 0RF
dofetilide 250 mcg Capsule
250 mcg PO Q12H 30 Days Qty: 60 0RF
levalbuterol tartrate [Xopenex HFA] 45 mcg/actuation Hfa Aerosol Inhaler
2 inh INHALATION R Q6HPRN PRN (Reason: sob)
metoprolol succinate 25 mg tablet extended release 24 hr
12.5 mg PO HS
Referrals:
Werner Mena, DO [Family Provider] -
Interventions
Interventions:
*Risk Screen - Suicide Last Done: 03/15/24 15:38
*General Assessment Last Done: 03/15/24 15:38
*Neglect/Abuse Screening Last Done: 03/15/24 15:38
ED- Fall Risk Assessment Last Done: 03/15/24 15:38
*ED COVID-19 Vaccine History Last Done: 03/15/24 15:38
ED- Cardiac Assessment Last Done: 03/15/24 15:38
ED- Pulmonary Assessment Last Done: 03/15/24 15:38
Discharge Date and Time
Print Language: NEPALI
[2024-03-15 15:40] LABS: % Basophils 1.1 % (0-2); % Eosinophils 3.1 % (0-6); % Immature Granulocytes 0.7 % (0-0.5); % Lymphocytes 22.7 % (20.5-51.1); % Monocytes 9.6 % (1.7-9.3); % Neutrophils 62.8 % (42.2-75.2); Absolute Basophils 0.1 10^3/uL (0-0.2); Absolute Eosinophils 0.3 10^3/uL (0-0.7); Absolute Immature Granulocytes 0.1 10^3/uL (0-0.05); Absolute Lymphocytes 2.3 10^3/uL (1.2-3.4); Absolute Neutrophils 6.5 10^3/uL (1.4-6.5); Hematocrit 42.9 % (37.0-47.0); Hemoglobin 14.1 g/dL (12.0-16.0); Mean Corp Hgb Conc. 32.9 g/dL (33.0-37.0); Mean Corpuscular Hgb 30.1 pg (27.0-31.0); Mean Corpuscular Volume 91.7 fL (81.0-99.0); Mean Platelet Volume 9.6 fL (7.4-10.4); Nucleated Red Blood Cells % 0 %; Platelet Count 355 10^3/uL (130-400); Red Blood Cell Count 4.68 10^6/uL (4.20-5.40); Red Cell Dist. Width 12.6 % (11.5-14.5); White Blood Cell Count 10.3 10^3/uL (4.8-10.8)
[2024-03-15 15:53] LABS: ALT (SGPT) 16 U/L (0-35); AST (SGOT) 24 U/L (14-36); Albumin 5.1 g/dl (3.5-5.0); Alkaline Phosphatase 38 U/L (38-126); Blood Urea Nitrogen 24 mg/dl (7-17); Calcium 10.1 mg/dl (8.4-10.2); Carbon Dioxide 28 mmol/L (22-30); Chloride 102 mmol/L (98-107); Estimated Creatinine Clearance 29 ml/min; Glucose 140 mg/dl (70-99); Potassium 4.7 mmol/L (3.5-5.1); Sodium 141 mmol/L (135-145); Total Bilirubin 0.6 mg/dl (0.2-1.3); Total Protein 7.9 g/dl (6.3-8.2); eGFR 55.21
[2024-03-15 16:10] LABS: INR 1.03
[2024-03-15 16:11] LABS: APTT 25.6 Sec (23.4-35.0)
[2024-03-15 16:17] LABS: NT-proBNP 328 pg/ml; Troponin I < 0.012 ng/ml
[2024-03-15 16:26] LABS: COVID-19 Antigen Negative (Negative)
--- NOTE | 2024-03-15 18:13 | W.PN.UPDATE ---
Update Note
Progress Note Update
Right chest tube placed 14 Fr thal quick, with near complete reexpansion of lung. Patient tolerated procedure well.
--- NOTE | 2024-03-15 19:20 | W.PN.UPDATE ---
Addendum entered and electronically signed by Tisha Pa MD 03/15/24 19:45:
on exam patient is conversant, in no acute distress. chest tube in place; b/l breath sounds, no LE swelling.
Original Note:
Update Note
Progress Note Update
This is an addendum to H&P written by VINAYAK Polanco
I saw and examined the patient.
The SEL[employer]ING [employer]DER's note was reviewed and I agree with the note.
Comment:
Ms. Opal Lovelace is a 83 yo woman with hx COPD, atrial fibrillation presents to the ER for shortness of breath and right sided back pain.
Triage VS: T 97.7, P 85, RR 24, BP 164/76, SpO2 100%
LABS: WBC 10.3, Hg 14.1, PLT 355, Na 141, K+ 4.7, Cl 102, CO2 28, BUN 24, Cr 1.0, Glucose 140, liver enzymes WNL, Trop < 0.012
CXR
IMPRESSION:
Large right pneumothorax. No overt tension.
IMPRESSION: Successful fluoroscopically guided placement of a right chest tube, with near complete reexpansion of the right lung.
Pneumothorax
-s/p chest tube placement by IR with near complete reexpansion of the right lung
-admit to telemetry
-continuous O2
-Pulmonary consult
COPD
-[employer] inhalers
Hx Atrial Fibrillation
-[employer] Tikosyn, Metoprolol, Eliquis
--- NOTE | 2024-03-15 19:37 | HPS.HSE ---
Family Physician
-
Family Physician: Werner Mena
Chief Complaint
-
Back Pain and Shortness of Breath
History of Present Illness
Patient is an 83 y/o female past medical history of atrial fibrillation and COPD who presents with back pain and shortness of breath. Patient reports just after cleaning up her dishes from lunch she developed acute onset of right sided back pain.
She called her daughter who came over. When patient was walking to the developed she developed significant shortness of breath, and her daughter brought her to the emergency department for evaluation. Chest X-ray showed large right pneumothorax.
Right chest tube was placed by interventional radiology. Hospitalist group was asked to evaluated the patient for admission to the hospital. Upon my evaluation patient reports much improvement in her breathing following chest tube placement.
Medical History
Past Medical History
Past Medical History: Reports Other
Additional Past Medical History:
Paroxysmal Atrial Fibrillation
COPD
Past Surgical History: Reports Gynocological
Social History
Tobacco: Former Smoker (Quit about 12 years)
Alcohol: Daily (One Patel Lite nightly with dinner)
Family History
Family History: Not pertinent
Allergies / Home Medications
Allergies reflects when Allergies were last updated in [facility].
Home Medications with original date entered in [facility]
Allergy/Medication List:
Allergies
Allergy/AdvReac Type Severity Reaction Status Date / Time
aspirin Allergy Unknown Verified 08/23/23 16:15
Penicillins Allergy Rash Verified 08/23/23 16:15
Sulfa (Sulfonamide Allergy Unknown Verified 08/23/23 16:15
Antibiotics)
Home Medications
cholecalciferol (vitamin D3) 25 mcg (1,000 unit) capsule (Vitamin D3) 25 mcg PO NOON Supplement 08/04/23
budesonide 160 mcg-glycopyr 9 mcg-formot 4.8 mcg/actuation HFA inhaler (Breztri ACLEDA Bankphere) 2 inh inhalation R BID Lung/Breathing Issues 08/19/23
calcium carbonate (Calcium 600) 600 mg PO DAILY Supplement 08/23/23
apixaban 2.5 mg tablet (Eliquis) 2.5 mg PO BID #60 tabs 08/26/23
dofetilide 250 mcg capsule 250 mcg PO Q12H 30 days #60 caps 08/26/23
levalbuterol tartrate 45 mcg/actuation aerosol inhaler (Xopenex HFA) 2 inh inhalation R Q6HPRN PRN sob 03/15/24
metoprolol succinate 25 mg tablet,extended release 24 hr 12.5 mg PO HS 03/15/24
Review of Systems
-
A 12 point ROS was completed and negative except as noted: Yes
Constitutional: Denies Fever or Chills
Respiratory: Reports See HPI
Cardiac: Denies Chest Pain or Palpitations
Physical Exam
Vital Signs
Vital Signs
Temp Pulse Resp BP Pulse Ox
97.7 F 80 24 152/71 96
03/15/24 17:24 03/15/24 19:00 03/15/24 19:00 03/15/24 18:15 03/15/24 19:00
Physical Exam
General: Comfortable and Conversant
HEENT: Anicteric and Moist mucous membranes
Respiratory: Clear, Non Labored Respirations and Chest Tube (Right)
Cardiac: S1/S2 and Regular Rhythm
GI: Soft and Non Tender
Rectal: Deferred by Provider
Musculoskeletal: No Clubbing, No Cyanosis and No Edema
Skin: Warm and Dry
Neuro: Awake, Alert, Oriented and Nonfocal/grossly intact
Psych: Calm
Laboratory Results
-
03/15/24 15:25
03/15/24 15:25
Laboratory Results
PT 14.0 Sec (11.4-14.6) 03/15/24 15:33
INR 1.03 03/15/24 15:33
APTT 25.6 Sec (23.4-35.0) 03/15/24 15:33
Total Bilirubin 0.6 mg/dl (0.2-1.3) 03/15/24 15:25
AST 24 U/L (14-36) 03/15/24 15:25
ALT 16 U/L (0-35) 03/15/24 15:25
Alkaline Phosphatase 38 U/L (38-126) 03/15/24 15:25
Troponin I < 0.012 ng/ml 03/15/24 15:33
Data Reviewed
-
Diagnostic Radiology: Report Reviewed by me
Lab Data: Labs Reviewed by me
Impression/Plan
-
Spontaneous Right Pneumothorax
-Chest Tube Placed by IR
-Consult Pulmonary
-Continue supplemental oxygen
COPD, no acute exacerbation
-Continue Breztri - Patient will bring her own from home
Paroxysmal Atrial Fibrillation
-Continue Eliquis for anticoagulation
-Continue dofetilide and metoprolol for rate/rhythm control
DVT proph: Eliquis
Code Status: DNR
[2024-03-15] MEDS: TIKOSYN 250 MCG PO (23:45)
[2024-03-15] MEDS: TOPROL XL 12.5 MG PO (23:45)
[2024-03-15] MEDS: ELIQUIS 2.5 MG PO (23:46)
[2024-03-16] MEDS: NON-FORMULARY ITEM INH (00:49)
[2024-03-16 03:45] VITALS: BP 129/53
[2024-03-16] MEDS: NON-FORMULARY ITEM 2 INH INH ×2 (07:53→19:19)
[2024-03-16] MEDS: TIKOSYN 250 MCG PO ×2 (07:56→21:11)
[2024-03-16] MEDS: ELIQUIS 2.5 MG PO ×2 (07:56→21:11)
[2024-03-16 08:06] VITALS: BP 132/55
--- NOTE | 2024-03-16 09:39 | W.PN.HOSP.TC ---
Today's Communication/Plan
-
c/w chest tube
repeat chest x ray
Assessment / Plan
Assessment / Plan
Physical Exam
General: not in distress
HEENT: Moist mucous membranes and Atraumatic
Respiratory: No Wheezes , limited air both sides, right chest tube
Cardiac: S1/S2,
GI: Soft, Non Tender and Non Distended
Rectal: No Maroon Stools
Genito-urinary: No costovertebral tender
Musculoskeletal: No Cyanosis and No Edema
Skin: Warm; No Jaundice
Neuro: AO x 3 and Nonfocal/grossly intact; No Slurred Speech, Facial Droop or Tremors
Psych: Calm and Intact Judgment/Insight
83 years old female who presented with shortness of breath
#Large right pneumothorax
s/p chest tube on 03/15
Order chest x ray
# COPD exacerbation
Acute hypoxic respiratory failure s/p chest tube and O2 supplement
she is feeling better , no cough
On breathing treatment
No evidence of acute infection with absence of leukocytosis, fever, productive cough
Primary sanitation associate Dr. Ballesteros
Appreciate pulmonary input
# HTN urgency, resolved
# History of hyperlipidemia. No changes intended
# Sinus tachycardia. resolved.
# DVT prophylaxis
Total time spent to see the patient, examine the patient, review data and lab results, discuss treatment plan with patient, nursing staff around 55 minutes
Anticipated Discharge: > 48 hours
Subjective/Interval History
-
Date of Service: March 16, 2024
Denies chest pain or sob
Objective Data
-
Vital Signs:
Vital Signs
Temp Pulse Resp BP Pulse Ox
97.8 F 58 16 132/55 100
03/16/24 08:06 03/16/24 08:06 03/16/24 08:06 03/16/24 08:06 03/16/24 08:06
I&O
03/15/24 03/16/24 03/17/24
06:59 06:59 06:59
Intake Total 120 / 120
Output Total
Balance 109 / 109
[2024-03-16 11:46] VITALS: BP 127/55
--- NOTE | 2024-03-16 12:11 | CON.PUL ---
Consultation
Consultation Request
Date/Time Consultation Requested: 03/16/24
Date/Time Consultation Performed: 03/16/24
Performing Provider: Isha
Reason for Consultation: PTX
Medical History
-
History of Present Illness:
Patient is an 83 year old female with past medical history of atrial fibrillation and COPD (follows with Dr Ballesteros) who presents to ER with acute onset back pain and shortness of breath. Patient reports just after cleaning up her dishes from
lunch she developed acute onset of right sided back pain. She called her daughter who came over. When patient was walking to the developed she developed significant shortness of breath, and her daughter brought her to the emergency department for
evaluation. Chest X-ray showed large right pneumothorax. Right chest tube was placed by IR on 03/15/24.
Denies prior history of PTX, denies trauma or coughing spells prior to episode. PFT on last visit showing severe obstruction. On her usual inhalers at home.
Past Medical History
Past Medical History: Other (see list below)
Social History
Tobacco: Former Smoker
Alcohol: None
Drug: None
Family History
Family History: Reviewed & Not Pertinent
Allergies / Home Medications
Allergies
Allergy/AdvReac Type Severity Reaction Status Date / Time
aspirin Allergy Unknown Verified 08/23/23 16:15
Penicillins Allergy Rash Verified 08/23/23 16:15
Sulfa (Sulfonamide Allergy Unknown Verified 08/23/23 16:15
Antibiotics)
Home Medications
�Medication �Instructions �Recorded �Confirmed �Last Taken �Type
cholecalciferol (vitamin D3) 25 25 mcg PO NOON Supplement 08/04/23 03/15/24 03/15/24 History
mcg (1,000 unit) capsule (Vitamin
D3)
budesonide 160 mcg-glycopyr 9 2 inh inhalation R BID 08/19/23 03/15/24 03/15/24 History
mcg-formot 4.8 mcg/actuation HFA Lung/Breathing Issues
inhaler (Breztri Aerosphere)
calcium carbonate (Calcium 600) 600 mg PO DAILY Supplement 08/23/23 03/15/24 03/15/24 History
apixaban 2.5 mg tablet (Eliquis) 2.5 mg PO BID #60 tabs 08/26/23 03/15/24 03/15/24 Rx
dofetilide 250 mcg capsule 250 mcg PO Q12H 30 days #60 caps 08/26/23 03/15/24 03/15/24 Rx
levalbuterol tartrate 45 2 inh inhalation R Q6HPRN PRN sob 03/15/24 03/15/24 03/15/24 History
mcg/actuation aerosol inhaler
(Xopenex HFA)
metoprolol succinate 25 mg 12.5 mg PO HS Heart 03/15/24 03/15/24 03/14/24 History
tablet,extended release 24 hr Disease/Condition
Review of Systems
-
History Source: Patient
All other systems: Negative unless noted
Vitals / Labs / Diagnostic Testing
Vital Signs
Temp Pulse Resp BP Pulse Ox
97.7 F 68 16 127/55 100
03/16/24 11:46 03/16/24 11:46 03/16/24 11:46 03/16/24 11:46 03/16/24 11:46
Lab Data
03/15/24 15:25
03/15/24 15:25
Laboratory Results
03/15/24
15:33
PT 14.0
INR 1.03
APTT 25.6
Microbiology
03/15/24 15:48 Nasal Swab Influenza Types A & B (CHARLIE) - Final
Negative for Influenza A & B, NAAT
Negative results must be combined with clinical observations
and patient history.
Nucleic Acid Amplification test (NAAT)performed on the
[employer] platform.
Diagnostic Testing:
Physical Exam
-
HEENT: Normocephalic, Anicteric and Moist Mucous Membranes
Cardiovascular: S1/S2 and Regular Rhythm
Respiratory: Clear, Non-Labored Respirations and Other (chest tube)
GI: Soft, Non Distended and Non Tender
Neurology: Awake, Oriented and No Motor Deficits
Skin: Warm, Dry and Good Color
General: Comfortable and Other (NAD)
Assessment
-
Patient is an 83 year old female with past medical history of atrial fibrillation and COPD (follows with Dr Ballesteros) who presents to ER with acute onset back pain and shortness of breath. Patient reports just after cleaning up her dishes from
lunch she developed acute onset of right sided back pain. She called her daughter who came over. When patient was walking to the developed she developed significant shortness of breath, and her daughter brought her to the emergency department for
evaluation. Chest X-ray showed large right pneumothorax. Right chest tube was placed by IR on 03/15/24. We are consulted for eval.
Acute spontaneous pneumothorax status post chest tube 03/15/24
Acute onset back pain
Shortness of breath
Conditions present prior to admission
Former smoker [id number] smoker-quit 2011
Paroxysmal atrial fibrillation
Severe COPD
Follows with Dr Ballesteros
Mixed hyperlipidemia
Plan
No oxygen was needed on admission, currently saturating >90% on RA
No history of use at home
Prior history of lung disease is noted including COPD
Denies prior history of PTX, denies trauma or coughing spells prior to episode.
PFT on last visit showing severe obstruction. On her usual inhalers at home.
s/p chest tube by IR 03/15/24, spontaneous occurrence, no triggers
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
Other imaging reviewed, will obtain CT chest in AM to eval parenchyma
If Ptx stable, can try to water seal in AM
Prior ECHO results are reviewed indicating stable function
No PH or other VHD noted
Smoking history noted
Continued smoking cessation encouraged
She is past her age requirements for yearly screening
Will need outpatient pulmonary evaluation in our office for PFTs and 6MWT in 2-3 weeks post discharge
Reviewed with patient
We will follow
Diagnostic Data
Chest X-Ray: 03/16/24-1. Resolution of right pneumothorax following chest tube placement.
2. Lungs are clear.
03/15/24- Large right pneumothorax. No overt tension.
07/14/23- Basilar scarring and abnormal interstitial and airspace opacities at the lung bases as above, likely predominantly within the right middle lobe and the lingula. Chronic changes of bronchiolitis is a consideration. As warranted, the findings
could be further evaluated with follow-up CT chest.
CT Scan:
Echo: 08/24/23- Normal biventricular size and systolic function without regional wall motion abnormality. No significant valvular disease. No prior study available for comparison. Trace
tricuspid regurgitation. Estimated pulmonary artery pressure of 25-30 mmHg.
PFT's:
Reports and relevant images were personally reviewed.
Total time spent on this consultation __75__ minutes which includes review of history, physical exam, medications, laboratory data, personal review of imaging, extensive review of outpatient records, discussion with care team and respiratory therapy.
[2024-03-16] MEDS: VITAMIN D3 (cholecalciferol) 25 MCG PO (12:30)
--- NOTE | 2024-03-16 13:35 | CM ---
Patient seen at bedside.
IA Completed
DX: R pneumothorax
chest tube insertion
repeat cxr today
PMH: Afib, COPD
Patient lives in a 2 story home alone, 0 steps to enter, flight of steps to second floor
PLOF: Independent, driving, uses no assistive device
Denies VN/Rehab
Denies DME
PCP: Werner Padilla
Pharmacy: [address] [place]
PLAN: discharge to when medically stable to home, currently no needs anticipated.
[2024-03-16 16:18] VITALS: BP 126/54
[2024-03-16 17:07] LABS: Glucose - Point of Care 105 mg/dl (70-99)
[2024-03-16 20:17] VITALS: BP 141/61
[2024-03-16] MEDS: TOPROL XL 12.5 MG PO (21:11)
[2024-03-16 23:52] VITALS: BP 129/55
[2024-03-17 03:53] VITALS: BP 122/59
[2024-03-17 07:25] VITALS: BP 129/65
[2024-03-17] MEDS: ELIQUIS 2.5 MG PO ×2 (07:27→21:32)
[2024-03-17] MEDS: TIKOSYN 250 MCG PO ×2 (07:27→21:32)
--- NOTE | 2024-03-17 08:01 | W.PN.HOSP.TC ---
Addendum entered and electronically signed by Michael Agee MD 03/17/24 09:29:
CDI response: underweight
d/w IR and pulm: CT showing MODERATE-SIZED RIGHT PNEUMOTHORAX which has decreased in size since 03/15/2024 following right chest tube placement. Despite the presence of the chest tube, there appears to be a mild TENSION PNEUMOTHORAX given
compression on the right heart border (right atrium and cavoatrial junction).
- confirmed with nursing, patient was on suction all night.
- plan is for increase in suction and repeat CXR in 1-2 hours.
Original Note:
Today's Communication/Plan
-
follow pulm recs and CT results
Assessment / Plan
Assessment / Plan
Physical Exam
General: not in distress
HEENT: Moist mucous membranes and Atraumatic
Respiratory: No Wheezes , limited air both sides, right chest tube
Cardiac: S1/S2,
GI: Soft, Non Tender and Non Distended
Rectal: No Maroon Stools
Genito-urinary: No costovertebral tender
Musculoskeletal: No Cyanosis and No Edema
Skin: Warm; No Jaundice
Neuro: AO x 3 and Nonfocal/grossly intact; No Slurred Speech, Facial Droop or Tremors
Psych: Calm and Intact Judgment/Insight
83 years old female who presented with shortness of breath
#Large right pneumothorax - spontaneous
s/p chest tube on 03/15; possible water seal today per Pulmonary; but awaiting CT chest results
Appreciate pulmonary input
#COPD exacerbation
#Acute hypoxic respiratory failure s/p chest tube and O2 supplement (2L)
wean O2 as able
she is feeling better , no cough
On breathing treatment
No evidence of acute infection with absence of leukocytosis, fever, productive cough
Primary chart calculator Dr. Ballesteros
Appreciate pulmonary input
#HTN urgency, resolved
#History of hyperlipidemia. No changes intended
#hx of PAF
#Sinus tachycardia. resolved.
- ok Tikosyn/BB and Eliquis - continue
DVT prophylaxis: Eliquis
Code: DNR
Total time spent to see the patient, examine the patient, review data and lab results, discuss treatment plan with patient, nursing staff around 44 minutes
Anticipated Discharge: 24 - 48 hours
Subjective/Interval History
-
Date of Service: March 17, 2024
feels well, no SOB
Objective Data
-
Vital Signs:
Vital Signs
Temp Pulse Resp BP Pulse Ox
98.1 F 63 16 129/65 100
03/17/24 07:25 03/17/24 07:25 03/17/24 07:25 03/17/24 07:25 03/17/24 07:25
I&O
03/16/24 03/17/24 03/18/24
06:59 06:59 06:59
Intake Total 120 / 120 960 / 960
Output Total
Balance 109 / 109 951 / 951
Data Reviewed
-
Total Time Spent with Patient (in minutes): 44
Diagnostic Radiology: Report Reviewed by me
Labs: Labs Reviewed by me
[2024-03-17] MEDS: NON-FORMULARY ITEM 2 INH INH ×2 (08:11→18:11)
[2024-03-17 08:57] VITALS: BMI 19.3
--- NOTE | 2024-03-17 09:14 | PN.CDI ---
CDI
- -
CDI:
Physician Documentation Request
Admit Date: 03/15/24 19:56
Dear Doctor Anuel,
Patient admitted for pneumothorax.
Please review the following and provide your response in the progress notes.
Clinical Indicators:
Height: 5' 2'
Weight:105 lbs
BMI: 19.3
If possible, please provide an associated diagnosis related to the abnormal BMI, such as:
Underweight
Cachectic
BMI is not significant
Other
BMI < or = to 19.9
Underweight
Weight Loss
Cachectic
Anorexia
Use of terms such as suspected, likely, concern for, or probable (associated with a specific diagnosis that is being evaluated, monitored, or treated as if it exists) are acceptable and can be coded in the inpatient setting, when documented at the
time of discharge.
Thank you,
Teri Lindsay RN, BSN
CDI Specialist
Available via [place] text
Please use your independent medical judgment in providing your response.
--- NOTE | 2024-03-17 10:24 | W.PN.PUL3 ---
Today's Communication / Plan
-
Briefly to water seal for CT, demonstrating return of PTX
Now increased suction to -30 and CXR better
Will continue suction for 24 hours and reattempt water seal again in the future
If she does not improve, tough situation as next steps are likely too invasive for her advanced lung disease
Assessment
-
Patient is an 83 year old female with past medical history of atrial fibrillation and COPD (follows with Dr Ballesteros) who presents to ER with acute onset back pain and shortness of breath. Patient reports just after cleaning up her dishes from
lunch she developed acute onset of right sided back pain. She called her daughter who came over. When patient was walking to the developed she developed significant shortness of breath, and her daughter brought her to the emergency department for
evaluation. Chest X-ray showed large right pneumothorax. Right chest tube was placed by IR on 03/15/24. We are consulted for eval.
Acute spontaneous pneumothorax status post chest tube 03/15/24
Acute onset back pain
Shortness of breath
Conditions present prior to admission
Former smoker [id number] smoker-quit 2011
Paroxysmal atrial fibrillation
Severe COPD
Follows with Dr Ballesteros
Mixed hyperlipidemia
Plan
No oxygen was needed on admission, currently saturating >90% on RA
No history of use at home
Prior history of lung disease is noted including COPD/severe emphysema
Denies prior history of PTX, denies trauma or coughing spells prior to episode.
PFT on last visit showing severe obstruction. On her usual inhalers at home.
s/p chest tube by IR 03/15/24, spontaneous occurrence, no triggers
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
CT chest noted, ptx present w/ severe emphysema
Confirmed with RN that patient had been on suction all night, was only on water seal to transport for CT
She likely had return of ptx with brief water seal
Unfortunately she may not improve without suctioning given her advanced lung disease
Suction increased to -30 with repeat CXR improved
May attempt water seal again in next 24-48 hours--if does not hold, she may need advanced treatment including pleurodesis
Prior ECHO results are reviewed indicating stable function
No PH or other VHD noted
Smoking history noted
Continued smoking cessation encouraged
She is past her age requirements for yearly screening
Will need outpatient pulmonary evaluation in our office for PFTs and 6MWT in 2-3 weeks post discharge
Reviewed with patient
We will follow
Diagnostic Data
Chest X-Ray: 03/16/24-1. Resolution of right pneumothorax following chest tube placement.
2. Lungs are clear.
03/15/24- Large right pneumothorax. No overt tension.
07/14/23- Basilar scarring and abnormal interstitial and airspace opacities at the lung bases as above, likely predominantly within the right middle lobe and the lingula. Chronic changes of bronchiolitis is a consideration. As warranted, the findings
could be further evaluated with follow-up CT chest.
CT Scan:
Echo: 08/24/23- Normal biventricular size and systolic function without regional wall motion abnormality. No significant valvular disease. No prior study available for comparison. Trace
tricuspid regurgitation. Estimated pulmonary artery pressure of 25-30 mmHg.
PFT's:
Reports and relevant images were personally reviewed.
Total time spent on this encounter __56__ minutes which includes review of history, physical exam, medications, laboratory data, personal review of imaging, extensive review of outpatient records, discussion with care team and respiratory therapy.
Subjective Data
-
Date of Service:
Date of Service: March 17, 2024
Chief Complaint: Pulmonary Follow Up
Subjective:
Events this AM noted, CT with persistent PTX
Confirmed patient was to suction all night, not disrupted
Objective Data
Data Reviewed
Vital Signs / I&O / Oxygen:
Vital Signs
Temp Pulse Resp BP Pulse Ox
98.1 F 67 18 129/65 99
03/17/24 07:25 03/17/24 08:15 03/17/24 08:15 03/17/24 07:25 03/17/24 08:15
Intake and Output
03/16/24 03/17/24 03/18/24
06:59 06:59 06:59
Intake Total 120 / 120 960 / 960
Output Total
Balance 109 / 109 951 / 951
SaO2 99
Nasal Cannula flow liters per 2
minute
Physical Exam
General: Comfortable and Other (NAD)
HEENT: Normocephalic, Anicteric and Moist Mucous Membranes
Cardiovascular: S1-S2 and Regular Rhythm
Respiratory: Clear, Non-Labored Respirations and Chest Tube
GI: Soft, Non Distended and Non Tender
Neurology: Awake, Alert, Oriented and No Motor Deficits
Skin: Warm, Dry and Good Color
Labs/Micro/Reports
Lab Data
03/15/24 15:25
03/15/24 15:25
Microbiology
03/15/24 15:48 Nasal Swab Influenza Types A & B (CHARLIE) - Final
Negative for Influenza A & B, NAAT
Negative results must be combined with clinical observations
and patient history.
Nucleic Acid Amplification test (NAAT)performed on the
[employer] platform.
[2024-03-17] MEDS: VITAMIN D3 (cholecalciferol) 25 MCG PO (11:17)
[2024-03-17 11:30] VITALS: BP 132/62
[2024-03-17 15:45] VITALS: BP 108/49
[2024-03-17 19:10] VITALS: BP 135/55
[2024-03-17] MEDS: TOPROL XL 12.5 MG PO (21:32)
[2024-03-17 23:00] VITALS: BP 138/63
[2024-03-18 03:00] VITALS: BP 131/66
[2024-03-18 06:44] LABS: Hematocrit 38.5 % (37.0-47.0); Mean Corp Hgb Conc. 31.2 g/dL (33.0-37.0); Mean Corpuscular Hgb 30.2 pg (27.0-31.0); Mean Corpuscular Volume 96.7 fL (81.0-99.0); Mean Platelet Volume 9.6 fL (7.4-10.4); Platelet Count 295 10^3/uL (130-400); Red Blood Cell Count 3.98 10^6/uL (4.20-5.40); Red Cell Dist. Width 12.6 % (11.5-14.5); White Blood Cell Count 8.3 10^3/uL (4.8-10.8)
[2024-03-18 07:06] LABS: Blood Urea Nitrogen 20 mg/dl (7-17); Calcium 8.9 mg/dl (8.4-10.2); Carbon Dioxide 35 mmol/L (22-30); Chloride 102 mmol/L (98-107); Estimated Creatinine Clearance 39 ml/min; Glucose 89 mg/dl (70-99); Sodium 141 mmol/L (135-145); eGFR > 60.00
[2024-03-18] MEDS: NON-FORMULARY ITEM 2 INH INH ×2 (07:25→20:11)
[2024-03-18 08:00] VITALS: BP 125/53
[2024-03-18 08:57] VITALS: BMI 19.4
[2024-03-18] MEDS: ELIQUIS 2.5 MG PO ×2 (09:29→22:05)
[2024-03-18] MEDS: TIKOSYN 250 MCG PO ×2 (09:31→22:05)
--- NOTE | 2024-03-18 10:23 | W.PN.HOSP.TC ---
Addendum entered and electronically signed by Mina Rutherford MD 03/18/24 12:35:
Addendum
d/w daughter, await pulmonary input, possible need for surgery
Osteopenia, will place her back on calcium
End
Original Note:
Today's Communication/Plan
-
Follow with pulmonary recommendations
Assessment / Plan
Assessment / Plan
Physical Exam
General: not in distress
HEENT: Moist mucous membranes and Atraumatic
Respiratory: No Wheezes , limited air both sides, right chest tube
Cardiac: S1/S2,
GI: Soft, Non Tender and Non Distended
Rectal: No Maroon Stools
Genito-urinary: No costovertebral tender
Musculoskeletal: No Cyanosis and No Edema
Skin: Warm; No Jaundice
Neuro: AO x 3 and Nonfocal/grossly intact; No Slurred Speech, Facial Droop or Tremors
Psych: Calm and Intact Judgment/Insight
83 years old female who presented with shortness of breath
#Large right pneumothorax - spontaneous
s/p chest tube on 03/15; Suction increased to -30 with repeat CXR improved after failing water seal. She might need pleurodesis
Appreciate pulmonary input
#COPD exacerbation
#Acute hypoxic respiratory failure s/p chest tube and O2 supplement (2L)
wean O2 as able
she is feeling better , no cough
On breathing treatment
No evidence of acute infection with absence of leukocytosis, fever, productive cough
Primary assembly leader Dr. Ballesteros
Appreciate pulmonary input
#HTN urgency, resolved
#History of hyperlipidemia. No changes intended
#hx of PAF
#Sinus tachycardia. resolved.
- ok Tikosyn/BB and Eliquis - continue
DVT prophylaxis: Eliquis
Code: DNR
Total time spent to see the patient, examine the patient, review data and lab results, discuss treatment plan with patient, nursing staff around 44 minutes
Anticipated Discharge: > 48 hours
Subjective/Interval History
-
Date of Service: March 18, 2024
No chest pain
Objective Data
-
Labs:
Laboratory Results
03/18/24
06:12
WBC 8.3
Hgb 12.0
Hct 38.5
Plt Count 295
Sodium 141
Potassium 4.0
Chloride 102
Carbon Dioxide 35 H
BUN 20 H
Creatinine 0.8
Glucose 89
Calcium 8.9
Vital Signs:
Vital Signs
Temp Pulse Resp BP Pulse Ox
98.2 F 94 18 125/53 92
03/18/24 08:00 03/18/24 10:08 03/18/24 10:08 03/18/24 08:00 03/18/24 10:08
I&O
03/17/24 03/18/24 03/19/24
06:59 06:59 06:59
Intake Total 960 / 960 1010 / 1010
Output Total
Balance 951 / 951 1007 / 1007
[2024-03-18 11:30] VITALS: BP 125/60
[2024-03-18] MEDS: VITAMIN D3 (cholecalciferol) 25 MCG PO (11:58)
[2024-03-18 16:00] VITALS: BP 129/59
--- NOTE | 2024-03-18 16:14 | W.PN.PUL3 ---
Today's Communication / Plan
-
Continue chest tube to suction
Repeat daily chest x-ray repeat chest x-ray tomorrow
Will discuss with IR upsizing of the chest tube if there is persistent pneumothorax despite suction and lack of air leak.
Discussed with family surgical options in the future depending if there is persistent air leak versus healing. May include outpatient CTsx evaluation.
Assessment
-
Patient is an 83 year old female with past medical history of atrial fibrillation and COPD (follows with Dr Ballesteros) who presents to ER with acute onset back pain and shortness of breath. Patient reports just after cleaning up her dishes from
lunch she developed acute onset of right sided back pain. She called her daughter who came over. When patient was walking to the developed she developed significant shortness of breath, and her daughter brought her to the emergency department for
evaluation. Chest X-ray showed large right pneumothorax. Right chest tube was placed by IR on 03/15/24. We are consulted for eval.
Acute spontaneous pneumothorax status post chest tube 03/15/24
Acute onset back pain
Shortness of breath
Conditions present prior to admission
Former smoker [id number] smoker-quit 2011
Paroxysmal atrial fibrillation
Severe COPD
Follows with Dr Ballesteros
Mixed hyperlipidemia
Plan
Stable overnight
Persistent pneumothorax on chest x-ray 03/18/2024.
Prior history of lung disease is noted including COPD/severe emphysema
Denies prior history of PTX, denies trauma or coughing spells prior to episode.
PFT on last visit showing severe obstruction. On her usual inhalers at home.
Spontaneous secondary pneumothorax, high risk of recurrence without definitive intervention.
s/p chest tube by IR 03/15/24, spontaneous occurrence.
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
CT chest noted, ptx present w/ severe emphysema
Confirmed with RN that patient had been on suction all night, was only on water seal to transport for CT
She likely had return of ptx with brief water seal
Unfortunately she may not improve without suctioning given her advanced lung disease
Chest x-ray 03/18/2024: Persistent apical pneumothorax.
Chest tube without air leak with conversation or deep coughing.
Will maintain chest tube to suction today given persistent apical pneumothorax-repeat chest x-ray in the morning.
If there is persistent apical pneumothorax even without air leak we will ask interventional radiology to upsize the tube.
-
Daughter at the bedside options discussed with her in detail.
Include: If persistent air leak CT surgery evaluation for VATS vs chemical pleurodesis.
If there is healing with resolution of pneumothorax without recurrent air leak then outpatient pulmonary/cardiothoracic surgery follow-up.
Patient understands high risk of recurrence.
-
If there is persistent air leak consult for CT surgery will occur Wednesday. I explained to patient and daughter that this is not an emergency type of procedure.
-
Plan to place chest tube to waterseal in the morning if chest x-ray showed stability and there is no air leak present.
Prior ECHO results are reviewed indicating stable function
No PH or other VHD noted
Smoking history noted
Continued smoking cessation encouraged
She is past her age requirements for yearly screening
Will need outpatient pulmonary evaluation in our office for PFTs and 6MWT in 2-3 weeks post discharge
Reviewed with patient
We will follow
Diagnostic Data
Chest X-Ray: 03/16/24-1. Resolution of right pneumothorax following chest tube placement.
2. Lungs are clear.
03/15/24- Large right pneumothorax. No overt tension.
07/14/23- Basilar scarring and abnormal interstitial and airspace opacities at the lung bases as above, likely predominantly within the right middle lobe and the lingula. Chronic changes of bronchiolitis is a consideration. As warranted, the findings
could be further evaluated with follow-up CT chest.
CT Scan:
Echo: 08/24/23- Normal biventricular size and systolic function without regional wall motion abnormality. No significant valvular disease. No prior study available for comparison. Trace
tricuspid regurgitation. Estimated pulmonary artery pressure of 25-30 mmHg.
PFT's:
Reports and relevant images were personally reviewed.
Subjective Data
-
Date of Service:
Date of Service: March 18, 2024
Chief Complaint: Pulmonary Follow Up
Subjective:
No new complaints overnight
Denies any shortness of breath at rest
Review of Systems
Cardiopulmonary: Dyspnea (n)
GI: Abdominal Pain (n) and Nausea (n)
Neuro: Headache (n)
Objective Data
Data Reviewed
Vital Signs / I&O / Oxygen:
Vital Signs
Temp Pulse Resp BP Pulse Ox
97.9 F 79 18 125/60 96
03/18/24 11:30 03/18/24 11:30 03/18/24 11:30 03/18/24 11:30 03/18/24 11:30
Intake and Output
03/17/24 03/18/24 03/19/24
06:59 06:59 06:59
Intake Total 960 / 960 1010 / 1010
Output Total 3 / 3
Balance 951 / 951 1007 / 1007
SaO2 96
Nasal Cannula flow liters per 2
minute
Physical Exam
General: Comfortable and Other (NAD)
HEENT: Normocephalic, Anicteric and Moist Mucous Membranes
Cardiovascular: S1-S2 and Regular Rhythm
Respiratory: Clear, Non-Labored Respirations and Chest Tube (Airleak present)
GI: Soft, Non Distended and Non Tender
Neurology: Awake, Alert, Oriented and No Motor Deficits
Skin: Warm, Dry and Good Color
Labs/Micro/Reports
Lab Data
03/18/24 06:12
03/18/24 06:12
Microbiology
03/15/24 15:48 Nasal Swab Influenza Types A & B (CHARLIE) - Final
Negative for Influenza A & B, NAAT
Negative results must be combined with clinical observations
and patient history.
Nucleic Acid Amplification test (NAAT)performed on the
[employer] platform.
[2024-03-18 19:28] VITALS: BP 155/70
[2024-03-18] MEDS: TOPROL XL 12.5 MG PO (22:05)
[2024-03-18] MEDS: OSCAL CAL 500 500 MG PO (22:05)
[2024-03-18 23:00] VITALS: BP 121/60
[2024-03-19 03:00] VITALS: BP 134/57
[2024-03-19 06:00] VITALS: BMI 19.4
[2024-03-19 07:00] VITALS: BP 131/58
[2024-03-19] MEDS: NON-FORMULARY ITEM 2 INH INH ×2 (07:21→19:50)
[2024-03-19 08:57] VITALS: BMI 19.4
[2024-03-19] MEDS: TIKOSYN 250 MCG PO ×2 (09:37→20:56)
[2024-03-19] MEDS: ELIQUIS 2.5 MG PO ×2 (09:37→20:51)
[2024-03-19] MEDS: OSCAL CAL 500 500 MG PO ×2 (09:38→20:51)
--- NOTE | 2024-03-19 09:46 | W.PN.HOSP.TC ---
Today's Communication/Plan
-
follow with pulmonary recommendations
Assessment / Plan
Assessment / Plan
Physical Exam
General: not in distress
HEENT: Moist mucous membranes and Atraumatic
Respiratory: No Wheezes , limited air both sides, right chest tube
Cardiac: S1/S2,
GI: Soft, Non Tender and Non Distended
Rectal: No Maroon Stools
Genito-urinary: No costovertebral tender
Musculoskeletal: No Cyanosis and No Edema
Skin: Warm; No Jaundice
Neuro: AO x 3 and Nonfocal/grossly intact; No Slurred Speech, Facial Droop or Tremors
Psych: Calm and Intact Judgment/Insight
83 years old female who presented with shortness of breath
#Large right pneumothorax - spontaneous
s/p chest tube on 03/15; Suction increased to -30 with repeat CXR improved after failing water seal. She might need pleurodesis
Repeat x ray today also
Appreciate pulmonary input
#COPD exacerbation
#Acute hypoxic respiratory failure s/p chest tube and O2 supplement (2L)
wean O2 as able
she is feeling better , no cough
On breathing treatment
No evidence of acute infection with absence of leukocytosis, fever, productive cough
Primary siderographist Dr. Ballesteros
Appreciate pulmonary input
#HTN urgency, resolved
# Osteopenia, will place her back on calcium
#History of hyperlipidemia. No changes intended
#hx of PAF
#Sinus tachycardia. resolved.
- ok Tikosyn/BB and Eliquis - continue
DVT prophylaxis: Eliquis
Code: DNR
Total time spent to see the patient, examine the patient, review data and lab results, discuss treatment plan with patient, nursing staff around 44 minutes
Anticipated Discharge: > 48 hours
Subjective/Interval History
-
Date of Service: March 19, 2024
No worsening sob
Objective Data
-
Vital Signs:
Vital Signs
Temp Pulse Resp BP Pulse Ox
98.0 F 77 16 131/58 99
03/19/24 07:00 03/19/24 07:24 03/19/24 07:24 03/19/24 07:00 03/19/24 07:24
I&O
03/18/24 03/19/24 03/20/24
06:59 06:59 06:59
Intake Total 1010 / 1010 1320 / 1320
Output Total
Balance 1002 / 1002 1315 / 1315
[2024-03-19 11:00] VITALS: BP 125/89
[2024-03-19] MEDS: VITAMIN D3 (cholecalciferol) 25 MCG PO (11:41)
--- NOTE | 2024-03-19 11:45 | CM ---
CM reviewed chart. R sided CT confirmed in place by Cxr- pneumo improving. Pt not medically stable for dc at this time. Pt has no skilled needs noted-please consult CM should dc planning needs change.
CM/SW will continue to follow to ensure a safe and timely dc.
--- NOTE | 2024-03-19 12:46 | W.PN.PUL3 ---
Today's Communication / Plan
-
Continue chest tube to suction-persistent air leak/mild
Repeat chest x-ray in the morning
Assessment
-
Patient is an 83 year old female with past medical history of atrial fibrillation and COPD (follows with Dr Ballesteros) who presents to ER with acute onset back pain and shortness of breath. Patient reports just after cleaning up her dishes from
lunch she developed acute onset of right sided back pain. She called her daughter who came over. When patient was walking to the developed she developed significant shortness of breath, and her daughter brought her to the emergency department for
evaluation. Chest X-ray showed large right pneumothorax. Right chest tube was placed by IR on 03/15/24. We are consulted for eval.
Acute spontaneous pneumothorax status post chest tube 03/15/24
Acute onset back pain
Shortness of breath
Conditions present prior to admission
Former smoker [id number] smoker-quit 2011
Paroxysmal atrial fibrillation
Severe COPD
Follows with Dr Ballesteros
Mixed hyperlipidemia
Plan
Stable overnight
Persistent pneumothorax on chest x-ray 03/18/2024.
Decrease size of pneumothorax on chest x-ray 03/19/2024
-
Prior history of lung disease is noted including COPD/severe emphysema
Denies prior history of PTX, denies trauma or coughing spells prior to episode.
PFT on last visit showing severe obstruction. On her usual inhalers at home.
Spontaneous secondary pneumothorax, high risk of recurrence without definitive intervention.
s/p chest tube by IR 03/15/24, spontaneous occurrence.
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
CT chest noted, ptx present w/ severe emphysema
Confirmed with RN that patient had been on suction all night, was only on water seal to transport for CT
She likely had return of ptx with brief water seal
Unfortunately she may not improve without suctioning given her advanced lung disease
Chest x-ray 03/18/2024: Persistent apical pneumothorax.
Chest x-ray 03/19/2024: Decreasing size of right apical pneumothorax.
Chest tube without air leak with conversation or deep coughing. On 03/18/2024
Intermittent air leak noted 03/19/2024-apparently started after the patient ambulated to the restroom.
Will maintain chest tube to suction today given persistent apical pneumothorax-repeat chest x-ray in the morning.
May need to consider upsizing chest tube if continues to have intermittent air leak and persistent pneumothorax without reexpansion-repeat chest x-ray 03/20/2024.
-
Daughter at the bedside options Dr. Salinas discussed with her in detail. 03/18/2024
Include: If persistent air leak CT surgery until early next week, evaluation for VATS vs chemical pleurodesis.
If there is healing with resolution of pneumothorax without recurrent air leak then outpatient pulmonary/cardiothoracic surgery follow-up.
Patient understands high risk of recurrence.
-
Hold off on waterseal placement as there is persistent air leak.
-
Prior ECHO results are reviewed indicating stable function
No PH or other VHD noted
Smoking history noted
Continued smoking cessation encouraged
She is past her age requirements for yearly screening
Will need outpatient pulmonary evaluation in our office for PFTs and 6MWT in 2-3 weeks post discharge
We will follow
Diagnostic Data
Chest X-Ray: 03/16/24-1. Resolution of right pneumothorax following chest tube placement.
2. Lungs are clear.
03/15/24- Large right pneumothorax. No overt tension.
07/14/23- Basilar scarring and abnormal interstitial and airspace opacities at the lung bases as above, likely predominantly within the right middle lobe and the lingula. Chronic changes of bronchiolitis is a consideration. As warranted, the findings
could be further evaluated with follow-up CT chest.
CT Scan:
Echo: 08/24/23- Normal biventricular size and systolic function without regional wall motion abnormality. No significant valvular disease. No prior study available for comparison. Trace
tricuspid regurgitation. Estimated pulmonary artery pressure of 25-30 mmHg.
PFT's:
Reports and relevant images were personally reviewed.
Subjective Data
-
Date of Service:
Date of Service: March 19, 2024
Chief Complaint: Pulmonary Follow Up
Subjective:
Patient denies any new complaints
Denies shortness of breath at rest
After ambulation to the restroom early expiratory noted.
Review of Systems
Cardiopulmonary: Dyspnea (n), Cough (n) and Sputum Production (n)
GI: Abdominal Pain (n)
Objective Data
Data Reviewed
Vital Signs / I&O / Oxygen:
Vital Signs
Temp Pulse Resp BP Pulse Ox
98.5 F 68 17 125/89 99
03/19/24 11:00 03/19/24 11:00 03/19/24 11:00 03/19/24 11:00 03/19/24 11:00
Intake and Output
03/18/24 03/19/24 03/20/24
06:59 06:59 06:59
Intake Total 1010 / 1010 1320 / 1320
Output Total 8 / 5 / 5
Balance 1002 / 1002 1315 / 1315
SaO2 99
Nasal Cannula flow liters per 2
minute
Physical Exam
General: Comfortable and Other (NAD)
HEENT: Normocephalic, Anicteric and Moist Mucous Membranes
Cardiovascular: S1-S2 and Regular Rhythm
Respiratory: Clear, Non-Labored Respirations and Chest Tube (Intermittent air leak noted with conversation)
GI: Soft, Non Distended and Non Tender
Neurology: Awake, Alert, Oriented and No Motor Deficits
Skin: Warm, Dry and Good Color
Labs/Micro/Reports
Lab Data
03/18/24 06:12
03/18/24 06:12
[2024-03-19 15:00] VITALS: BP 120/65
[2024-03-19] MEDS: TOPROL XL PO (21:02)
[2024-03-19] MEDS: TOPROL XL 12.5 MG PO (21:05)
[2024-03-19 23:00] VITALS: BP 132/64
[2024-03-20 06:00] VITALS: BMI 19.2
[2024-03-20 07:15] VITALS: BP 125/105
[2024-03-20] MEDS: NON-FORMULARY ITEM 2 INH INH ×2 (07:48→20:13)
[2024-03-20] MEDS: TIKOSYN 250 MCG PO ×2 (08:48→20:51)
[2024-03-20] MEDS: ELIQUIS 2.5 MG PO ×2 (08:49→20:51)
[2024-03-20] MEDS: OSCAL CAL 500 500 MG PO ×2 (08:49→20:52)
--- NOTE | 2024-03-20 08:58 | PTCARENOTE ---
Pt ambulated from stretcher to bed. HR tachycardic, 120's-140's. AGUAYO/ at rest. made aware, new order provided, see MAR.
--- NOTE | 2024-03-20 09:06 | W.PN.HOSP.TC ---
Today's Communication/Plan
-
see bold
Assessment / Plan
Assessment / Plan
83 years old female who presented with shortness of breath
#Large right pneumothorax - spontaneous
S/p right chest tube on 03/15
Continue management as per pulmonology and IR
May need thoracic surgical evaluation including potential need for VATS versus chemical pleurodesis - defer to pulm
#COPD exacerbation
#Acute hypoxic respiratory failure s/p chest tube and O2 supplement (2L)
Improving, continue bronchodilators
No evidence of acute infection with absence of leukocytosis, fever, productive cough
Primary warp splitter Dr. Ballesteros
Appreciate pulmonary input
#Hx of PAF
#Sinus tachycardia
-Continue Tikosyn/BB and Eliquis
-Patient tachycardic 03/20, which resolved with IV metoprolol
-Continue IV metoprolol as needed
#HTN urgency, resolved
# Osteopenia
Resumed calcium carbonate
#History of hyperlipidemia
No changes intended
DVT prophylaxis: Eliquis
Code: DNR
Updated at bedside 03/20
Total time spent to see the patient on the floor, examine the patient, review data and lab results, discuss treatment plan with patient, nursing staff around 50 minutes.
Physical Exam
General: No acute distress
HEENT: Normocephalic, Atraumatic, EOMI, MMM
Respiratory: Diminished breath sounds at the right lung base
Cardiac: Normal S1/S2, Regular Rate and Rhythm
GI: Soft, Nontender, Nondistended, Normal Bowel Sounds
Extremities: No Clubbing, Cyanosis, or Edema
Neuro: Nonfocal/Grossly Intact
Psych: Calm, Cooperative
Derm: No Visible lesions
Anticipated Discharge: > 48 hours
Subjective/Interval History
-
Date of Service: March 20, 2024
Patient reports having shortness of breath this morning, it has since resolved. No palpitations. No chest pain. No fever, no vomiting.
Objective Data
-
Vital Signs:
Vital Signs
Temp Pulse Resp BP Pulse Ox
97.5 F 63 15 125/105 97
03/20/24 07:15 03/20/24 07:54 03/20/24 07:54 03/20/24 07:15 03/20/24 07:54
I&O
03/19/24 03/20/24 03/21/24
06:59 06:59 06:59
Intake Total 1320 / 1320 1500 / 1500
Output Total 5 / 5
Balance 1315 / 1315 1500 / 1500
--- NOTE | 2024-03-20 09:09 | W.PN.PUL.V3 ---
Today's Communication / Plan
-
Supplemental oxygen
Interventional radiology-probable upsize chest tube
Follow-up portable chest x-rays
Consider thoracic surgical evaluation
Assessment
-
Patient is an 83 year old female with past medical history of atrial fibrillation and COPD (follows with Dr Ballesteros) who presents to ER with acute onset back pain and shortness of breath. Patient reports just after cleaning up her dishes from
lunch she developed acute onset of right sided back pain. She called her daughter who came over. When patient was walking to the developed she developed significant shortness of breath, and her daughter brought her to the emergency department for
evaluation. Chest X-ray showed large right pneumothorax. Right chest tube was placed by IR on 03/15/24. We are consulted for eval.
Acute spontaneous pneumothorax status post chest tube 03/15/24
Acute onset back pain
Shortness of breath
Conditions present prior to admission:
Former smoker [id number] smoker-quit 2011
Paroxysmal atrial fibrillation
Severe COPD
Follows with Dr Ballesteros
Mixed hyperlipidemia
Plan
Respiratory status has deteriorated with increasing shortness of breath due to enlarging pneumothorax
Supplemental oxygen as needed-help with nitrogen washout
Avoid coughing
Aspiration precautions
Breztri continues
Nebulizers as needed
Chest x-ray 03/20/2024 personally reviewed-significantly enlarged pneumothorax-was taken off wall suction and transported for x-ray
Change x-rays to portable
Back on wall suction
Interventional radiology consultation for probable chest tube upsizing-reviewed with interventional radiology as well as nursing
Realistically told her this could take days/weeks to completely resolve
May require thoracic surgical evaluation including potential need for VATS versus chemical pleurodesis
DVT prophylaxis-on Eliquis
Nutrition
Early mobilization
Will need outpatient pulmonary evaluation in our office for PFTs and 6MWT in 2-3 weeks post discharge
Family discussions:
Daughter at the bedside options Dr. Salinas discussed with her in detail. 03/18/2024
Diagnostic Data
Chest X-Ray: 03/16/24-1. Resolution of right pneumothorax following chest tube placement.
2. Lungs are clear.
03/15/24- Large right pneumothorax. No overt tension.
07/14/23- Basilar scarring and abnormal interstitial and airspace opacities at the lung bases as above, likely predominantly within the right middle lobe and the lingula. Chronic changes of bronchiolitis is a consideration. As warranted, the findings
could be further evaluated with follow-up CT chest.
Echo: 08/24/23- Normal biventricular size and systolic function without regional wall motion abnormality. No significant valvular disease. No prior study available for comparison. Trace
tricuspid regurgitation. Estimated pulmonary artery pressure of 25-30 mmHg.
Reports and relevant images were personally reviewed.
Subjective Data
-
Date of Service:
Date of Service: March 20, 2024
Chief Complaint: Pulmonary Follow Up, Dyspnea Follow Up and Other (Pneumothorax)
Review of Systems
General: Other (Per HPI)
Objective Data
Data Reviewed
Vital Signs / I&O:
Vital Signs
Temp Pulse Resp BP Pulse Ox
97.5 F 63 15 125/105 97
03/20/24 07:15 03/20/24 07:54 03/20/24 07:54 03/20/24 07:15 03/20/24 07:54
Intake and Output
03/19/24 03/20/24 03/21/24
06:59 06:59 06:59
Intake Total 1320 / 1320 1500 / 1500
Output Total 5 / 5
Balance 1315 / 1315 1500 / 1500
SaO2: 97
Nasal Cannula flow liters per minute: 2
Physical Exam
General: Respiratory Distress (n), Comfortable and Other (NAD)
HEENT: Normocephalic, Anicteric and Moist Mucous Membranes
Cardiovascular: Regular Rhythm
Respiratory: Clear (Diminished breath sounds, prolonged expiratory time), Wheeze (n), Crackles (n), Accessory Resp Muscle Use (Mild) and Chest Tube (Intermittent air leak noted with conversation)
GI: Soft, Non Distended and Non Tender
Neurology: Awake, Alert, Oriented and No Motor Deficits
Skin: Warm, Good Color, Cyanosis (n) and Jaundice (n)
Labs/Micro/Reports
Lab Data
03/18/24 06:12
03/18/24 06:12
[2024-03-20] MEDS: LOPRESSOR 5 MG IV (09:19)
[2024-03-20] MEDS: VITAMIN D3 (cholecalciferol) 25 MCG PO (12:58)
[2024-03-20 15:10] VITALS: BP 117/51
[2024-03-20 17:10] VITALS: BMI 19.2
[2024-03-20 19:00] VITALS: BP 135/62
[2024-03-20] MEDS: TOPROL XL 12.5 MG PO (21:05)
[2024-03-20 23:30] VITALS: BP 139/63
[2024-03-21 03:00] VITALS: BP 113/58
[2024-03-21 06:00] VITALS: BMI 19.0
[2024-03-21] MEDS: TIKOSYN 250 MCG PO ×2 (08:21→21:54)
[2024-03-21] MEDS: OSCAL CAL 500 500 MG PO ×2 (08:21→21:53)
[2024-03-21] MEDS: ELIQUIS 2.5 MG PO ×2 (08:22→21:52)
[2024-03-21] MEDS: NON-FORMULARY ITEM 160 INH INH (08:27)
[2024-03-21 08:37] VITALS: BP 115/50
--- NOTE | 2024-03-21 08:56 | W.PN.HOSP.TC ---
Today's Communication/Plan
-
see bold
Assessment / Plan
Assessment / Plan
83 years old female who presented with shortness of breath
#Large right pneumothorax - spontaneous
#Acute hypoxic respiratory insufficiency
S/p right chest tube on 03/15/24
Continue management as per pulmonology and IR
May need thoracic surgical evaluation including potential need for VATS versus chemical pleurodesis - defer to pulm
#COPD exacerbation
#Acute hypoxic respiratory failure s/p chest tube and O2 supplement (2L)
Improving, continue bronchodilators
No evidence of acute infection with absence of leukocytosis, fever, productive cough
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 Appreciate pulmonary input
Currently requiring 2 L of oxygen, wean as tolerated
#Hx of PAF
#Sinus tachycardia
-Continue Eliquis
-Patient tachycardic 03/20, which resolved with IV metoprolol
-Continue Tikosyn, Toprol XL 12.5 mg at bedtime, IV metoprolol as needed
#HTN urgency, resolved
# Osteopenia
Resumed calcium carbonate
#History of hyperlipidemia
No changes intended
DVT prophylaxis: Eliquis
Code: DNR
Updated at bedside 03/20
Total time spent to see the patient on the floor, examine the patient, review data and lab results, discuss treatment plan with patient, nursing staff around 40 minutes.
Physical Exam
General: No acute distress
HEENT: Normocephalic, Atraumatic, EOMI, MMM
Respiratory: Diminished breath sounds at the right lung base
Cardiac: Normal S1/S2, Regular Rate and Rhythm
GI: Soft, Nontender, Nondistended, Normal Bowel Sounds
Extremities: No Clubbing, Cyanosis, or Edema
Neuro: Nonfocal/Grossly Intact
Psych: Calm, Cooperative
Derm: No Visible lesions
Anticipated Discharge: 24 - 48 hours
Subjective/Interval History
-
Date of Service: March 21, 2024
Denies shortness of breath at rest. No fever, no vomiting. No chest pain, no palpitations.
Objective Data
-
Vital Signs:
Vital Signs
Temp Pulse Resp BP Pulse Ox
99.1 F 62 16 115/50 98
03/21/24 08:37 03/21/24 08:37 03/21/24 08:37 03/21/24 08:37 03/21/24 08:37
I&O
03/20/24 03/21/24 03/22/24
06:59 06:59 06:59
Intake Total 1500 / 1500 840 / 840 480 / 480
Output Total
Balance 1500 / 1500 833 / 833 480 / 480
--- NOTE | 2024-03-21 09:49 | W.PN.PUL.V3 ---
Today's Communication / Plan
-
Follow chest x-ray
Continue supplemental oxygen
Assess discharge supplemental oxygen needs prior to discharge
If no airleak and pneumothorax resolution then changed to waterseal in the next 24 hours
Reviewed with daughter
Assessment
-
Patient is an 83 year old female with past medical history of atrial fibrillation and COPD (follows with Dr Ballesteros) who presents to ER with acute onset back pain and shortness of breath. Patient reports just after cleaning up her dishes from
lunch she developed acute onset of right sided back pain. She called her daughter who came over. When patient was walking to the developed she developed significant shortness of breath, and her daughter brought her to the emergency department for
evaluation. Chest X-ray showed large right pneumothorax. Right chest tube was placed by IR on 03/15/24. We are consulted for eval.
Acute spontaneous pneumothorax
status post chest tube 03/15/24
Status post adjustment and repositioning and replacement with 16 [employer] [place] Thal-Quick right sided chest tube 03/20/2024
Acute onset back pain/pleurisy
Shortness of breath
Conditions present prior to admission:
Former smoker [id number] smoker-quit 2011
Paroxysmal atrial fibrillation
Severe COPD
Follows with Dr Ballesteros
Mixed hyperlipidemia
Plan
Respiratory status has improved significantly with chest tube change and pneumothorax resolution
Supplemental oxygen as needed-help with nitrogen washout
Assess discharge supplemental oxygen needs prior to discharge
Avoid coughing
Aspiration precautions
Breztri continues
Nebulizers as needed
Chest x-ray 03/20/2024 personally reviewed-significantly enlarged pneumothorax-was taken off wall suction and transported for x-ray
Chest x-ray 03/21/2024 after chest tube replacement-pneumothorax resolution
Continue wall suction-minimal leak
If chest x-ray tomorrow with no pneumothorax and no leak will change to waterseal with subsequent clamp and potential removal
Realistically told her this could take days/weeks to completely resolve
May require thoracic surgical evaluation including potential need for VATS versus chemical pleurodesis
Explained to patient that she has a 50% lifelong risk of recurrent pneumothorax
DVT prophylaxis-on Eliquis
Nutrition
Early mobilization
Reviewed with daughter extensively at the bedside as well as nursing
Will need outpatient pulmonary evaluation in our office for PFTs (in the future at least 6 weeks after pneumothorax resolution) and 6MWT in 2-3 weeks post discharge
Family discussions:
Daughter at the bedside options Dr. Salinas discussed with her in detail. 03/18/2024
Diagnostic Data
Chest X-Ray: 03/16/24-1. Resolution of right pneumothorax following chest tube placement.
2. Lungs are clear.
03/15/24- Large right pneumothorax. No overt tension.
07/14/23- Basilar scarring and abnormal interstitial and airspace opacities at the lung bases as above, likely predominantly within the right middle lobe and the lingula. Chronic changes of bronchiolitis is a consideration. As warranted, the findings
could be further evaluated with follow-up CT chest.
Echo: 08/24/23- Normal biventricular size and systolic function without regional wall motion abnormality. No significant valvular disease. No prior study available for comparison. Trace
tricuspid regurgitation. Estimated pulmonary artery pressure of 25-30 mmHg.
Reports and relevant images were personally reviewed.
Subjective Data
-
Date of Service:
Date of Service: March 21, 2024
Chief Complaint: Pulmonary Follow Up, Dyspnea Follow Up and Other (Pneumothorax)
Subjective:
Feels much improved, no chest pain, no abdominal pain, less short of breath
Review of Systems
General: Other (Per HPI)
Objective Data
Data Reviewed
Vital Signs / I&O:
Vital Signs
Temp Pulse Resp BP Pulse Ox
99.1 F 62 16 115/50 98
03/21/24 08:37 03/21/24 08:37 03/21/24 08:37 03/21/24 08:37 03/21/24 08:37
Intake and Output
03/20/24 03/21/24 03/22/24
06:59 06:59 06:59
Intake Total 1500 / 1500 840 / 840 480 / 480
Output Total
Balance 1500 / 1500 833 / 833 480 / 480
SaO2: 98
Nasal Cannula flow liters per minute: 2
Physical Exam
General: Respiratory Distress (n), Comfortable and Other (NAD)
HEENT: Normocephalic, Anicteric and Moist Mucous Membranes
Cardiovascular: Regular Rhythm
Respiratory: Clear (Diminished breath sounds, prolonged expiratory time), Wheeze (n), Crackles (n), Accessory Resp Muscle Use (Mild) and Chest Tube (Minimal air leak with minimal drainage)
GI: Soft, Non Distended and Non Tender
Neurology: Awake, Alert, Oriented and No Motor Deficits
Skin: Warm, Good Color, Cyanosis (n) and Jaundice (n)
Labs/Micro/Reports
Lab Data
03/18/24 06:12
03/18/24 06:12
[2024-03-21] MEDS: VITAMIN D3 (cholecalciferol) 25 MCG PO (11:00)
[2024-03-21 11:32] VITALS: BP 97/47
--- NOTE | 2024-03-21 15:00 | CHAP ---
Msgr[facility]ellanos [facility] in [place] gave Opal the Sacrament of the Sick, Holy Communion, and an Apostolic Pardon. Exact time uncertain.
--- NOTE | 2024-03-21 15:08 | CM ---
Per activity notes, patient ambulating and performing ADLs independently. Plan remains for home when stable.
Plan: Case management will continue to follow and assist with discharge planning. Home when cleared medically.
[2024-03-21 15:44] VITALS: BP 135/65
[2024-03-21 17:00] VITALS: BMI 19.0
[2024-03-21 19:15] VITALS: BP 117/52
[2024-03-21] MEDS: NON-FORMULARY ITEM 2 INH INH (19:28)
[2024-03-21] MEDS: TOPROL XL 12.5 MG PO (21:53)
[2024-03-21 23:42] VITALS: BP 122/55
[2024-03-22] VITALS (7 sets, daily range): BP systolic 114–171; BP diastolic 53–73; BMI 19.1
[2024-03-22] MEDS: NON-FORMULARY ITEM 2 INH INH ×2 (07:07→19:20)
[2024-03-22 07:19] LABS: Hematocrit 36.4 % (37.0-47.0); Hemoglobin 11.7 g/dL (12.0-16.0); Mean Corp Hgb Conc. 32.1 g/dL (33.0-37.0); Mean Corpuscular Hgb 30.1 pg (27.0-31.0); Mean Corpuscular Volume 93.6 fL (81.0-99.0); Mean Platelet Volume 9.7 fL (7.4-10.4); Platelet Count 282 10^3/uL (130-400); Red Blood Cell Count 3.89 10^6/uL (4.20-5.40); Red Cell Dist. Width 12.1 % (11.5-14.5); White Blood Cell Count 6.9 10^3/uL (4.8-10.8)
[2024-03-22 07:30] LABS: Blood Urea Nitrogen 19 mg/dl (7-17); Calcium 9.4 mg/dl (8.4-10.2); Carbon Dioxide 40 mmol/L (22-30); Chloride 97 mmol/L (98-107); Estimated Creatinine Clearance 38 ml/min; Glucose 93 mg/dl (70-99); Magnesium 2.1 mg/dl (1.6-2.3); Potassium 4.3 mmol/L (3.5-5.1); Sodium 139 mmol/L (135-145); eGFR > 60.00
[2024-03-22] MEDS: TIKOSYN 250 MCG PO ×2 (08:56→20:23)
[2024-03-22] MEDS: OSCAL CAL 500 500 MG PO ×2 (08:56→20:23)
--- NOTE | 2024-03-22 08:56 | W.PN.HOSP.TC ---
Today's Communication/Plan
-
see bold
Assessment / Plan
Assessment / Plan
83 years old female who presented with shortness of breath
#Large right pneumothorax - spontaneous
#Acute hypoxic respiratory insufficiency
S/p right chest tube on 03/15/24
Plan to change chest tube to waterseal today
Possible clamping and removal tomorrow
Continue management as per pulmonology and IR
#COPD exacerbation
#Acute hypoxic respiratory failure s/p chest tube and O2 supplement (2L)
Improving, continue bronchodilators
No evidence of acute infection with absence of leukocytosis, fever, productive cough
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 Appreciate pulmonary input
Currently requiring 2 L of oxygen, wean as tolerated
#Hx of PAF
#Sinus tachycardia
-Continue Eliquis
-Patient tachycardic 03/20, which resolved with IV metoprolol
-Continue Tikosyn, Toprol XL 12.5 mg at bedtime, IV metoprolol as needed
#HTN urgency, resolved
# Osteopenia
Resumed calcium carbonate
#History of hyperlipidemia
No changes intended
DVT prophylaxis: Eliquis
Code: DNR
Updated at bedside 03/20
Updated daughter at bedside 03/22
Total time spent to see the patient on the floor, examine the patient, review data and lab results, discuss treatment plan with patient, nursing staff around 38 minutes.
Physical Exam
General: No acute distress
HEENT: Normocephalic, Atraumatic, EOMI, MMM
Respiratory: Diminished breath sounds at the right lung base
Cardiac: Normal S1/S2, Regular Rate and Rhythm
GI: Soft, Nontender, Nondistended, Normal Bowel Sounds
Extremities: No Clubbing, Cyanosis, or Edema
Neuro: Nonfocal/Grossly Intact
Psych: Calm, Cooperative
Derm: No Visible lesions
Anticipated Discharge: 24 - 48 hours
Subjective/Interval History
-
Date of Service: March 22, 2024
Patient denies chest pain, denies shortness of breath. No fever, no vomiting.
Objective Data
-
Labs:
Laboratory Results
03/22/24
06:46
WBC 6.9
Hgb 11.7 L
Hct 36.4 L
Plt Count 282
Sodium 139
Potassium 4.3
Chloride 97 L
Carbon Dioxide 40 H
BUN 19 H
Creatinine 0.8
Glucose 93
Calcium 9.4
Vital Signs:
Vital Signs
Temp Pulse Resp BP Pulse Ox
98.0 F 65 17 129/60 99
03/22/24 07:25 03/22/24 07:25 03/22/24 07:25 03/22/24 07:25 03/22/24 07:25
I&O
03/21/24 03/22/24 03/23/24
06:59 06:59 06:59
Intake Total 840 / 840 1450 / 1450
Output Total
Balance 833 / 833 1450 / 1450
[2024-03-22] MEDS: ELIQUIS 2.5 MG PO ×2 (08:57→20:23)
--- NOTE | 2024-03-22 09:50 | W.PN.PUL.V3 ---
Today's Communication / Plan
-
Change chest tube to waterseal
Follow-up chest x-ray tomorrow-if no pneumothorax then clamp chest tube, repeat chest x-ray 4 hours later and potentially remove chest tube
Assessment
-
Patient is an 83 year old female with past medical history of atrial fibrillation and COPD (follows with Dr Ballesteros) who presents to ER with acute onset back pain and shortness of breath. Patient reports just after cleaning up her dishes from
lunch she developed acute onset of right sided back pain. She called her daughter who came over. When patient was walking to the developed she developed significant shortness of breath, and her daughter brought her to the emergency department for
evaluation. Chest X-ray showed large right pneumothorax. Right chest tube was placed by IR on 03/15/24. We are consulted for eval.
Acute spontaneous pneumothorax
status post chest tube 03/15/24
Status post adjustment and repositioning and replacement with 16 [place] Thal-Quick right sided chest tube 03/20/2024
Acute onset back pain/pleurisy
Shortness of breath
Conditions present prior to admission:
Former smoker [id number] smoker-quit 2011
Paroxysmal atrial fibrillation
Severe COPD
Follows with Dr Ballesteros
Mixed hyperlipidemia
Plan
Respiratory status has improved significantly with chest tube change and pneumothorax resolution
Supplemental oxygen as needed-help with nitrogen washout
Assess discharge supplemental oxygen needs prior to discharge
Avoid coughing
Aspiration precautions
Breztri continues
Nebulizers as needed
Chest x-ray 03/20/2024 personally reviewed-significantly enlarged pneumothorax-was taken off wall suction and transported for x-ray
Chest x-ray 03/21/2024 after chest tube replacement-pneumothorax resolution
Chest x-ray 03/22/2024-no pneumothorax with chest tube in place
Change from wall suction to waterseal-reviewed with nursing
If chest x-ray tomorrow with no pneumothorax and no leak will change to clamp and potential removal
Realistically told her this could take days/weeks to completely resolve
May require thoracic surgical evaluation including potential need for VATS versus chemical pleurodesis
Explained to patient that she has a 50% lifelong risk of recurrent pneumothorax
DVT prophylaxis-on Eliquis
Nutrition
Early mobilization
Reviewed with nursing
Will need outpatient pulmonary evaluation in our office for PFTs (in the future at least 6 weeks after pneumothorax resolution) and 6MWT in 2-3 weeks post discharge
Family discussions:
Daughter at the bedside options Dr. Salinas discussed with her in detail. 03/18/[address] Ballesteros reviewed with daughter at the bedside extensively on 03/21/2024
Diagnostic Data
Chest X-Ray: 03/16/24-1. Resolution of right pneumothorax following chest tube placement.
2. Lungs are clear.
03/15/24- Large right pneumothorax. No overt tension.
07/14/23- Basilar scarring and abnormal interstitial and airspace opacities at the lung bases as above, likely predominantly within the right middle lobe and the lingula. Chronic changes of bronchiolitis is a consideration. As warranted, the findings
could be further evaluated with follow-up CT chest.
Echo: 08/24/23- Normal biventricular size and systolic function without regional wall motion abnormality. No significant valvular disease. No prior study available for comparison. Trace
tricuspid regurgitation. Estimated pulmonary artery pressure of 25-30 mmHg.
Reports and relevant images were personally reviewed.
Subjective Data
-
Date of Service:
Date of Service: March 22, 2024
Chief Complaint: Pulmonary Follow Up, Dyspnea Follow Up and Other (Pneumothorax)
Subjective:
No complaints of worsening shortness of breath, no chest pain, no abdominal pain
Review of Systems
General: Other ( Per HPI)
Objective Data
Data Reviewed
Vital Signs / I&O:
Vital Signs
Temp Pulse Resp BP Pulse Ox
98.0 F 65 17 129/60 99
03/22/24 07:25 03/22/24 07:25 03/22/24 07:25 03/22/24 07:25 03/22/24 07:25
Intake and Output
03/21/24 03/22/24 03/23/24
06:59 06:59 06:59
Intake Total 840 / 840 1450 / 1450
Output Total 7 / 7
Balance 833 / 833 1450 / 1450
SaO2: 99
Nasal Cannula flow liters per minute: 2
Physical Exam
General: Respiratory Distress (n), Comfortable and Other (NAD)
HEENT: Normocephalic, Anicteric and Moist Mucous Membranes
Cardiovascular: Regular Rhythm
Respiratory: Clear (Diminished breath sounds, prolonged expiratory time), Wheeze (n), Crackles (n), Accessory Resp Muscle Use (Mild) and Chest Tube (Minimal air leak with minimal drainage)
GI: Soft, Non Distended and Non Tender
Neurology: Awake, Alert, Oriented and No Motor Deficits
Skin: Warm, Good Color, Cyanosis (n) and Jaundice (n)
Labs/Micro/Reports
Lab Data
03/22/24 06:46
03/22/24 06:46
[2024-03-22] MEDS: VITAMIN D3 (cholecalciferol) 25 MCG PO (12:56)
--- NOTE | 2024-03-22 12:59 | PTCARENOTE ---
Chest tube dressing changed today, 03/22. Chest tube disconnected from suction per MD order, pt tolerated well. No SOB, lungs sound clear. Tube canister changed by IR nurse due to increased water level of chamber, suspecting that canister fell over
at some point. New canister in place with water seal, no drainage. Pt comfortable in bed, call thompson within reach.
[2024-03-22] MEDS: TOPROL XL 12.5 MG PO (22:00)
[2024-03-23 03:43] VITALS: BP 141/61
[2024-03-23 06:00] VITALS: BMI 18.9
[2024-03-23] MEDS: NON-FORMULARY ITEM 1 INH INH (07:19)
[2024-03-23 07:25] VITALS: BP 111/74
[2024-03-23] MEDS: OSCAL CAL 500 500 MG PO ×2 (08:34→21:24)
[2024-03-23] MEDS: ELIQUIS 2.5 MG PO ×2 (08:34→21:24)
[2024-03-23] MEDS: TIKOSYN 250 MCG PO ×2 (08:34→21:23)
--- NOTE | 2024-03-23 08:38 | W.PN.HOSP.TC ---
Today's Communication/Plan
-
Clamp chest tube today
Repeat chest x-ray in afternoon
Possible discharge tomorrow
Assessment / Plan
Assessment / Plan
83 years old female who presented with shortness of breath
#Large right pneumothorax - spontaneous
#Acute hypoxic respiratory insufficiency
S/p right chest tube on 03/15/24
Plan to clamp chest tube today
Repeat chest x-ray in the afternoon, possible removal
Repeat chest x-ray in the morning
Continue management as per pulmonology and IR
#COPD exacerbation
#Acute hypoxic respiratory failure s/p chest tube and O2 supplement (2L)
Improving, continue bronchodilators
No evidence of acute infection with absence of leukocytosis, fever, productive cough
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 Appreciate pulmonary input
Currently requiring 2 L of oxygen, wean as tolerated
#Hx of PAF
#Sinus tachycardia
-Continue Eliquis
-Patient tachycardic 03/20, which resolved with IV metoprolol
-Continue Tikosyn, Toprol XL 12.5 mg at bedtime, IV metoprolol as needed
#HTN urgency, resolved
# Osteopenia
Resumed calcium carbonate
#History of hyperlipidemia
No changes intended
DVT prophylaxis: Eliquis
Code: DNR
Updated at bedside 03/20
Updated daughter at bedside 03/22
Total time spent to see the patient on the floor, examine the patient, review data and lab results, discuss treatment plan with patient, nursing staff around 37 minutes.
Physical Exam
General: No acute distress
HEENT: Normocephalic, Atraumatic, EOMI, MMM
Respiratory: Diminished breath sounds at the right lung base
Cardiac: Normal S1/S2, Regular Rate and Rhythm
GI: Soft, Nontender, Nondistended, Normal Bowel Sounds
Extremities: No Clubbing, Cyanosis, or Edema
Neuro: Nonfocal/Grossly Intact
Anticipated Discharge: Within 24 hours
Subjective/Interval History
-
Date of Service: March 23, 2024
Patient denies chest pain, denies shortness of breath. No fever, no vomiting.
Objective Data
-
Vital Signs:
Vital Signs
Temp Pulse Resp BP Pulse Ox
97.2 F 68 16 111/74 100
03/23/24 07:25 03/23/24 07:25 03/23/24 07:25 03/23/24 07:25 03/23/24 07:25
I&O
03/22/24 03/23/24 03/24/24
06:59 06:59 06:59
Intake Total 1450 / 1450 480 / 480
Output Total 0 / 0
Balance 1450 / 1450 480 / 480
--- NOTE | 2024-03-23 09:52 | PTCARENOTE ---
Chest tube clamped at 0945 per MD order. Pt comfortable, no difficulty breathing. Call thompson within reach. CXR to be done in 4 hours.
--- NOTE | 2024-03-23 10:22 | W.PN.PUL.V3 ---
Today's Communication / Plan
-
Chest x-ray without pneumothorax
Clamp chest tube and repeat chest x-ray in 4 hours
Potential removal of chest tube
Keep overnight even if chest tube is out with a.m. chest x-ray
Assessment
-
Patient is an 83 year old female with past medical history of atrial fibrillation and COPD (follows with Dr Ballesteros) who presents to ER with acute onset back pain and shortness of breath. Patient reports just after cleaning up her dishes from
lunch she developed acute onset of right sided back pain. She called her daughter who came over. When patient was walking to the developed she developed significant shortness of breath, and her daughter brought her to the emergency department for
evaluation. Chest X-ray showed large right pneumothorax. Right chest tube was placed by IR on 03/15/24. We are consulted for eval.
Acute spontaneous pneumothorax
status post chest tube 03/15/24
Status post adjustment and repositioning and replacement with 16 [place] Thal-Quick right sided chest tube 03/20/2024
Acute onset back pain/pleurisy
Shortness of breath
Conditions present prior to admission:
Former smoker [id number] smoker-quit 2011
Paroxysmal atrial fibrillation
Severe COPD
Follows with Dr Ballesteros
Mixed hyperlipidemia
Plan
Respiratory status has improved significantly with chest tube change and pneumothorax resolution
Supplemental oxygen as needed-help with nitrogen washout
Assess discharge supplemental oxygen needs prior to discharge
Avoid coughing
Aspiration precautions
Breztri continues
Nebulizers as needed
Chest x-ray 03/20/2024 personally reviewed-significantly enlarged pneumothorax-was taken off wall suction and transported for x-ray
Chest x-ray 03/21/2024 after chest tube replacement-pneumothorax resolution
Chest x-ray 03/22/2024-no pneumothorax with chest tube in place
Chest x-ray 03/23/2024-no pneumothorax with chest tube in place-on waterseal
Change from waterseal-clamp chest tube and recheck chest x-ray in 4 hours
If repeat chest x-ray without pneumothorax then contact interventional radiology for chest tube removal
Repeat chest x-ray in the a.m. and if no pneumothorax stable for discharge from a pulmonary perspective
If recurrent pneumothorax then might require thoracic surgical evaluation including potential need for VATS versus chemical pleurodesis
Explained to patient that she has a 50% lifelong risk of recurrent pneumothorax
DVT prophylaxis-on Eliquis
Nutrition
Early mobilization
Reviewed with nursing
Reviewed with daughter-updated 03/23/2024 on plans for chest tube
Will need outpatient pulmonary evaluation in our office for PFTs (in the future at least 6 weeks after pneumothorax resolution) and 6MWT in 2-3 weeks post discharge
Family discussions:
Daughter at the bedside options Dr. Salinas discussed with her in detail. 03/18/[address] Ballesteros reviewed with daughter at the bedside extensively on 03/21/2024
Diagnostic Data
Chest X-Ray: 03/16/24-1. Resolution of right pneumothorax following chest tube placement.
2. Lungs are clear.
03/15/24- Large right pneumothorax. No overt tension.
07/14/23- Basilar scarring and abnormal interstitial and airspace opacities at the lung bases as above, likely predominantly within the right middle lobe and the lingula. Chronic changes of bronchiolitis is a consideration. As warranted, the findings
could be further evaluated with follow-up CT chest.
Echo: 08/24/23- Normal biventricular size and systolic function without regional wall motion abnormality. No significant valvular disease. No prior study available for comparison. Trace
tricuspid regurgitation. Estimated pulmonary artery pressure of 25-30 mmHg.
Reports and relevant images were personally reviewed.
Subjective Data
-
Date of Service:
Date of Service: March 23, 2024
Chief Complaint: Pulmonary Follow Up, Dyspnea Follow Up and Other (Pneumothorax)
Subjective:
Feels better, no complaints of worsening shortness of breath, no chest pain, productive cough, or abdominal pain
Review of Systems
General: Other (Per HPI)
Objective Data
Data Reviewed
Vital Signs / I&O:
Vital Signs
Temp Pulse Resp BP Pulse Ox
97.2 F 68 16 111/74 100
03/23/24 07:25 03/23/24 07:25 03/23/24 07:25 03/23/24 07:25 03/23/24 07:25
Intake and Output
03/22/24 03/23/24 03/24/24
06:59 06:59 06:59
Intake Total 1450 / 1450 480 / 480
Output Total 0 / 0
Balance 1450 / 1450 480 / 480
SaO2: 100
Nasal Cannula flow liters per minute: 2
Physical Exam
General: Respiratory Distress (n), Comfortable and Other (NAD)
HEENT: Normocephalic, Anicteric and Moist Mucous Membranes
Cardiovascular: Regular Rhythm
Respiratory: Clear (Diminished breath sounds, prolonged expiratory time), Wheeze (n), Crackles (n), Accessory Resp Muscle Use (Mild) and Chest Tube (Minimal air leak with minimal drainage)
GI: Soft, Non Distended and Non Tender
Neurology: Awake, Alert, Oriented and No Motor Deficits
Skin: Warm, Good Color, Cyanosis (n) and Jaundice (n)
Labs/Micro/Reports
Lab Data
03/22/24 06:46
03/22/24 06:46
[2024-03-23 11:15] VITALS: BP 127/77
[2024-03-23] MEDS: VITAMIN D3 (cholecalciferol) 25 MCG PO (12:54)
[2024-03-23 15:38] VITALS: BP 135/53
--- NOTE | 2024-03-23 15:44 | PN.IRAD.UPD ---
Update Note - IRAD
- -
Right sided chest tube removed at bedside. Patient tolerated procedure well. new dry , clean dressing and Vaseline gauze placed over site
--- NOTE | 2024-03-23 16:33 | CM ---
CM reviewed chart, patient seen bedside. Patient remains on O2, not on home O2. CM offered VN upon discharge, patient declining at this time, reports her two children and sister live nearby who are able to assist if patient needed. IMM reviewed with
patient, provided with copy, placed in chart. CM will continue to follow for all discharge planning needs.
Plan; home no needs, watch for home O2 needs.
[2024-03-23 19:00] VITALS: BP 120/59
[2024-03-23] MEDS: NON-FORMULARY ITEM 2 INH INH (19:29)
[2024-03-23] MEDS: TOPROL XL 12.5 MG PO (21:24)
[2024-03-23 23:00] VITALS: BP 116/53
[2024-03-24 03:00] VITALS: BP 135/60
[2024-03-24 06:00] VITALS: BMI 18.9
[2024-03-24] MEDS: NON-FORMULARY ITEM 2 INH INH (07:44)
[2024-03-24 07:57] VITALS: BP 126/62
[2024-03-24] MEDS: TIKOSYN 250 MCG PO (07:58)
[2024-03-24] MEDS: OSCAL CAL 500 500 MG PO (07:59)
[2024-03-24] MEDS: ELIQUIS 2.5 MG PO (07:59)
--- NOTE | 2024-03-24 08:55 | W.PN.HOSP.TC ---
Today's Communication/Plan
-
Cleared by pulmonology for discharge today
Assessment / Plan
Assessment / Plan
83 years old female who presented with shortness of breath
#Large right pneumothorax - spontaneous
#Acute hypoxic respiratory insufficiency
S/p right chest tube on 03/15/24
Appreciate pulmonology and IR input, chest tube removed 03/23/2024
Medically stable and cleared by pulmonology for discharge today
Follow-up with PCP in 1 week, and pulmonology in 2-3 weeks
#COPD exacerbation
#Acute hypoxic respiratory failure s/p chest tube and O2 supplement (2L)
Resolved, continue bronchodilators
No evidence of acute infection with absence of leukocytosis, fever, productive cough
Primary production administrator Dr. 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 Appreciate pulmonary input
Was requiring 2 L of oxygen, now on room air
#Hx of PAF
#Sinus tachycardia
-Continue Eliquis
-Patient tachycardic 03/20, which resolved with IV metoprolol
-Continue Tikosyn, Toprol XL 12.5 mg at bedtime
#HTN urgency, resolved
# Osteopenia
Resumed calcium carbonate
#History of hyperlipidemia
No changes intended
DVT prophylaxis: Eliquis
Code: DNR
Updated at bedside 03/20
Updated daughter at bedside 03/22
Physical Exam
General: No acute distress
HEENT: Normocephalic, Atraumatic, EOMI, MMM
Respiratory: Diminished breath sounds at the right lung base
Cardiac: Normal S1/S2, Regular Rate and Rhythm
GI: Soft, Nontender, Nondistended, Normal Bowel Sounds
Extremities: No Clubbing, Cyanosis, or Edema
Neuro: Nonfocal/Grossly Intact
Anticipated Discharge: Today
Subjective/Interval History
-
Date of Service: March 24, 2024
Patient had her chest tube removed yesterday. Denies shortness of breath, denies dyspnea with activity. No chest pain. No fever, no vomiting. No palpitations.
Objective Data
-
Vital Signs:
Vital Signs
Temp Pulse Resp BP Pulse Ox
97.3 F 70 16 126/62 95
03/24/24 07:57 03/24/24 07:57 03/24/24 07:57 03/24/24 07:57 03/24/24 07:57
I&O
03/23/24 03/24/24 03/25/24
06:59 06:59 06:59
Intake Total 480 / 480 1260 / 1260
Output Total 0 / 0
Balance 480 / 480 1260 / 1260
--- NOTE | 2024-03-24 09:52 | W.PN.PUL.V3 ---
Today's Communication / Plan
-
Chest x-ray with chest tube removed-no pneumothorax
Stable for discharge
Assessment
-
Patient is an 83 year old female with past medical history of atrial fibrillation and COPD (follows with Dr Ballesteros) who presents to ER with acute onset back pain and shortness of breath. Patient reports just after cleaning up her dishes from
lunch she developed acute onset of right sided back pain. She called her daughter who came over. When patient was walking to the developed she developed significant shortness of breath, and her daughter brought her to the emergency department for
evaluation. Chest X-ray showed large right pneumothorax. Right chest tube was placed by IR on 03/15/24. We are consulted for eval.
Acute spontaneous pneumothorax
status post chest tube 03/15/24
Status post adjustment and repositioning and replacement with 16 [place] Thal-Quick right sided chest tube 03/20/2024
Acute onset back pain/pleurisy
Shortness of breath
Conditions present prior to admission:
Former smoker [id number] smoker-quit 2011
Paroxysmal atrial fibrillation
Severe COPD
Follows with Dr Ballesteros
Mixed hyperlipidemia
Plan
Respiratory status has improved significantly with chest tube change and pneumothorax resolution
Supplemental oxygen as needed-help with nitrogen washout
Assess discharge supplemental oxygen needs prior to discharge
Avoid coughing
Aspiration precautions
Breztri continues
Nebulizers as needed
Chest x-ray 03/20/2024 personally reviewed-significantly enlarged pneumothorax-was taken off wall suction and transported for x-ray
Chest x-ray 03/21/2024 after chest tube replacement-pneumothorax resolution
Chest x-ray 03/22/2024-no pneumothorax with chest tube in place
Chest x-ray 03/23/2024-no pneumothorax with chest tube in place-on waterseal
Chest x-ray 03/24/2024-no pneumothorax with chest tube removed
Currently no recurrence of pneumothorax-increase activity and stable for discharge
If recurrent pneumothorax then might require thoracic surgical evaluation including potential need for VATS versus chemical pleurodesis
Explained to patient that she has a 50% lifelong risk of recurrent pneumothorax
DVT prophylaxis-on Eliquis
Nutrition
Early mobilization
Reviewed with nursing
Reviewed with daughter-updated 03/23/2024 on plans for chest tube
Patient stable for discharge from a pulmonary perspective
Will need outpatient pulmonary evaluation in our office for PFTs (in the future at least 6 weeks after pneumothorax resolution) and 6MWT in 2-3 weeks post discharge
Family discussions:
Daughter at the bedside options Dr. Salinas discussed with her in detail. 03/18/[address] Ballesteros reviewed with daughter at the bedside extensively on 03/21/2024
Diagnostic Data
Chest X-Ray: 03/16/24-1. Resolution of right pneumothorax following chest tube placement.
2. Lungs are clear.
03/15/24- Large right pneumothorax. No overt tension.
07/14/23- Basilar scarring and abnormal interstitial and airspace opacities at the lung bases as above, likely predominantly within the right middle lobe and the lingula. Chronic changes of bronchiolitis is a consideration. As warranted, the findings
could be further evaluated with follow-up CT chest.
Echo: 08/24/23- Normal biventricular size and systolic function without regional wall motion abnormality. No significant valvular disease. No prior study available for comparison. Trace
tricuspid regurgitation. Estimated pulmonary artery pressure of 25-30 mmHg.
Reports and relevant images were personally reviewed.
Subjective Data
-
Date of Service:
Date of Service: March 24, 2024
Chief Complaint: Pulmonary Follow Up, Dyspnea Follow Up and Other (Pneumothorax)
Subjective:
Feels well, no increase shortness of breath, no chest pain, no productive cough
Review of Systems
General: Other (Per HPI)
Objective Data
Data Reviewed
Vital Signs / I&O:
Vital Signs
Temp Pulse Resp BP Pulse Ox
97.3 F 70 16 126/62 95
03/24/24 07:57 03/24/24 07:57 03/24/24 07:57 03/24/24 07:57 03/24/24 07:57
Intake and Output
03/23/24 03/24/24 03/25/24
06:59 06:59 06:59
Intake Total 480 / 480 1260 / 1260
Output Total 0 / 0
Balance 480 / 480 1260 / 1260
SaO2: 95
Nasal Cannula flow liters per minute: 2
Physical Exam
General: Respiratory Distress (n), Comfortable and Other (NAD)
HEENT: Normocephalic, Anicteric and Moist Mucous Membranes
Cardiovascular: Regular Rhythm
Respiratory: Clear (Diminished breath sounds, prolonged expiratory time), Wheeze (n), Crackles (n), Accessory Resp Muscle Use (Mild) and Chest Tube (Minimal air leak with minimal drainage)
GI: Soft, Non Distended and Non Tender
Neurology: Awake, Alert, Oriented and No Motor Deficits
Skin: Warm, Good Color, Cyanosis (n) and Jaundice (n)
Labs/Micro/Reports
Lab Data
03/22/24 06:46
03/22/24 06:46
--- NOTE | 2024-03-24 10:45 | W.DCSUMMARY ---
Discharge Summary
Discharge Data
Date of Admission: 03/15/24
Date of Discharge: 03/24/24
-
Pending Results: No
Hospital Course
Discharge diagnosis:
Acute large right pneumothorax, spontaneous
Acute hypoxic respiratory insufficiency
Acute on chronic obstructive pulmonary disease exacerbation
History of paroxysmal atrial fibrillation
Sinus tachycardia
Hypertensive urgency
Osteopenia
Hyperlipidemia
Chest CT:
1. MODERATE-SIZED RIGHT PNEUMOTHORAX which has decreased in size since 03/15/2024 following right chest tube placement. Despite the presence of the chest tube, there appears to be a mild TENSION PNEUMOTHORAX given compression on the right heart
border (right atrium and cavoatrial junction).
2. SEVERE BILATERAL CENTRILOBULAR EMPHYSEMA.
3. Severe calcific atherosclerotic plaque in the coronary arteries and thoracic aorta.
Consults: Pulmonology, IR
Procedures:
Right chest tube insertion 03/15/2024
Hospital course:
83-year-old female with a past medical history of COPD, paroxysmal atrial fibrillation, and osteopenia was admitted for an acute large spontaneous right pneumothorax. Patient was seen in conjunction with pulmonology and IR. She had a right chest
tube inserted on 03/15/2024. She was treated with oxygen, and suction.
After a prolonged hospital course, her pneumothorax resolved. Her chest tube was removed on 03/23/2024. Repeat chest x-ray on 03/24/2024 was negative for pneumothorax. She is medically stable and cleared by pulmonology for discharge. She needs
to follow-up with her primary care doctor in 1 week, and pulmonology in the office in 2-3 weeks
Disposition: Home self-care
Discharge planning: Required 36 minutes
Discharge Plan
-
Patient Disposition: Home (Routine Discharge)
Discharge Diagnosis/Procedures: Large right pneumothorax, chronic obstructive pulmonary disease
Condition: Good
Diet: Regular
Activity: As tolerated
Driving Restrictions: As prior to admission
Activity Restrictions/Additional Instructions:
Please follow-up with your primary care doctor in 1 week, and your biometric technician in 2-3 weeks.
Referrals:
Hans Mckeon MD [Active] - in two to three weeks
Werner Mena DO [Family Provider] - in one week
Prescriptions:
Continued
cholecalciferol (vitamin D3) [Vitamin D3] 25 mcg (1,000 unit) Capsule
25 mcg PO NOON
Breztri Aerosphere 160-9-4.8 mcg/actuation Hfa Aerosol Inhaler
2 inh INHALATION R BID
calcium carbonate [Calcium 600] 600 mg calcium (1,500 mg) Tablet
600 mg PO DAILY
Eliquis 2.5 mg Tablet
2.5 mg PO BID Qty: 60 0RF
dofetilide 250 mcg Capsule
250 mcg PO Q12H 30 Days Qty: 60 0RF
levalbuterol tartrate [Xopenex HFA] 45 mcg/actuation Hfa Aerosol Inhaler
2 inh INHALATION R Q6HPRN PRN (Reason: sob)
metoprolol succinate 25 mg tablet extended release 24 hr
12.5 mg PO HS
Discharge Orders:
Discharge Patient (As Directed); Ordered 03/24/24
Ordered By: Elijah Daniels
Discharge Date and Time
Discharge Date/Time: 03/24/24 14:29
Print Language: GREEK
[2024-03-24 11:12] VITALS: BP 133/62
[2024-03-24] MEDS: VITAMIN D3 (cholecalciferol) 25 MCG PO (12:11)
--- NOTE | 2024-03-24 12:23 | CM ---
Received notification from RN that patient is medically cleared for discharge. Met with patient who stated that she is agreeable to discharge. She signed IMM. Her son will be in to pick her up and transport her home.
IMM on chart.
Plan: Case management will continue to follow and assist with discharge planning. Home.
== END 2024-03-24 14:29 | disposition home or self-care (01) | DRG 199 ==
LOC: 3 WEST ACU 19:56
PROVIDERS: Internal Medicine; Radiology Vascular & Interventional Radiology; ADMITTING PHYSICIAN Student in an Organized Health Care Education/Training Program; ATTENDING PHYSICIAN Family Medicine; EMERGENCY PHYSICIAN Student in an Organized Health Care Education/Training Program; FAMILY PHYSICIAN Internal Medicine; OTHER PHYSICIAN Internal Medicine
PROC: 0W9930Z Drainage of Right Pleural Cavity with Drainage Device, Percutaneous Approach (ICD-10-PCS; 2024-03-15)
DX: J93.83 Other pneumothorax (principal); J96.01 Acute respiratory failure with hypoxia; J44.1 Chronic obstructive pulmonary disease with (acute) exacerbation; Z68.1 Body mass index [BMI] 19.9 or less, adult; J84.9 Interstitial pulmonary disease, unspecified; Z11.52 Encounter for screening for COVID-19; Z87.891 Personal history of nicotine dependence; I16.0 Hypertensive urgency; Z66 Do not resuscitate; R63.6 Underweight
CPT/HCPCS: 32557; 71045; 71046; 71250; 80048; 80053; 82805; 82962; 83735; 83880; 84484; 85025; 85027; 85610; 85730; 87502; 87811; 93005; 94640; 94660; 96374; 99291; C1729; C1769

== ENCOUNTER → 2025-02-20 13:43 | Outpatient (REF) | payer MEDICARE, OTHER, SELFPAY | LOC: HWRCS 13:43 | PROVIDERS: ATTENDING PHYSICIAN Internal Medicine Cardiovascular Disease; FAMILY PHYSICIAN Internal Medicine | DX: I48.0 Paroxysmal atrial fibrillation (principal) | CPT/HCPCS: 93306 ==